=== PATIENT | female | born 1950 | race Caucasian/White ===

== ENCOUNTER 2022-10-18 14:57 | Inpatient (IN) | payer MEDICARE ==
--- NOTE | 2022-10-18 15:55 | ED ---
General Adult HPI - General Source: patient, family, RN notes reviewed Mode of arrival: wheelchair Limitations: physical limitation <Juve Li - Last Filed: 10/18/22 15:53> <Cristin Leach - Last Filed: 10/18/22 23:14> - General Stated complaint: diarreah, weight loss, Time Seen by Provider: 10/18/22 15:53 - History of Present Illness Initial comments: 72-year-old female presents emergency Department chief complaint diarrhea, weight loss, dehydration. Patient's been having diarrhea for over 2 weeks. Patient's last 13 pounds. Patient states symptoms started after she was [facility] after kyphoplasty upper back. Patient did contract covid 19. Patient's had 2 negative C. diff test. (Juve Li) Patient is 72-year-old female presents to the emergency department for diarrhea. She has had diarrhea for the past 2 weeks. Symptoms started after she was in rehab for kyphoplasty of upper back. At this time patient did contract COVID- 19. Describes it as somewhat watery diarrhea 2-5 times per day, nonbloody. She denies any history of C. diff states she had 2 negative test. No recent a ntibiotic use. She has very minimal cramping before a bowel movement otherwise no abdominal pain. No fever, chills, nausea, vomiting. No chest pain or shortness of breath. Patient has lost 13 pounds over the past few weeks. (Cristin Leach) - Related Data Home Medications Medication Instructions Recorded Confirmed Budesonide [Entocort EC] 3 mg PO BID 08/26/21 10/18/22 Calcium Carbonate [Calcium] 300 mg PO DAILY 08/26/21 10/18/22 Cholecalciferol [Vitamin D3 (10 10 mcg PO HS 08/26/21 10/18/22 Mcg = 400 Iu)] Cyanocobalamin (Vitamin B-12) 1,000 mcg PO DAILY 08/26/21 10/18/22 [Vitamin B-12] DULoxetine HCL [Cymbalta] 60 mg PO HS 08/26/21 10/18/22 Fluticasone Propion/Salmeterol 1 puff INHALATION RT-BID 08/26/21 10/18/22 [Advair 250-50 Diskus] Memantine [Namenda] 10 mg PO BID 08/26/21 10/18/22 Metoprolol Tartrate [Lopressor] 50 mg PO BID 08/26/21 10/18/22 Pyridoxine HCl (Vitamin B6) 100 mg PO DAILY 08/26/21 10/18/22 [Vitamin B-6] Rosuvastatin [Crestor] 10 mg PO HS 08/26/21 10/18/22 Vitamin E (Dl,Tocopheryl Acet) 400 unit PO HS 08/26/21 10/18/22 [Vitamin E (400 Iu = 180 mg)] Aspirin EC [Ecotrin Low Dose] 81 mg PO HS 10/18/22 10/18/22 Carbidopa-Levodopa 25-100 mg 1 tab PO PC-TID 10/18/22 10/18/22 [Sinemet 25-100] Donepezil [Aricept] 5 mg PO DAILY 10/18/22 10/18/22 Fludrocortisone [Florinef] 0.1 mg PO DAILY 10/18/22 10/18/22 Losartan [Cozaar] 25 mg PO DAILY 10/18/22 10/18/22 Allergies Allergy/AdvReac Type Severity Reaction Status Date / Time Cephalosporins Allergy Anaphylaxis Verified 10/18/22 22:26 Sulfa (Sulfonamide Allergy Rash/Hives Verified 10/18/22 22:26 Antibiotics) Review of Systems ROS Other: All systems not noted in ROS Statement are negative. <Juve Li - Last Filed: 10/18/22 15:53> ROS Other: All systems not noted in ROS Statement are negative. <Cristin Leach - Last Filed: 10/18/22 23:14> ROS Statement: Those systems with pertinent positive or pertinent negative responses have been documented in the HPI. Past Medical History Past Medical History: Cancer, COPD, CVA/TIA, Hypertension, Memory Impairment, Myocardial Infarction (MS), Neurologic Disorder, Renal Disease, Syncope, Vascular Disorder Additional Past Medical History / Comment(s): Beginnings of memory problems, 2012 breast cancer/lumpectomy/chemo/radiation, lumbar compression fractures, TTT/neurocardiogenic syncopies, cardiac valve disease, nuclear stress test indicated MS at some time, PVCs, cat scan showed old areas infarct, small AAA/aortic plaque/thrombus, caratid artery disease, severe COPD, "kidney issues", benign colon polyp, colitis or IBS, possible celiac's disease, basal cell skin cancer removed, osteoporosis with reclast infusion, Last Myocardial Infarction Date:: unkn History of Any Multi-Drug Resistant Organisms: None Reported Past Surgical History: Back Surgery, Breast Surgery, Hysterectomy, Orthopedic Surgery Additional Past Surgical History / Comment(s): Breast biopsy/lumpectomy, lumbar kyphoplasty/kenolog injections, depo medrol injections in lower back, loop recorder, colonoscopy/polypectomy, skin cancer removed from scalp Past Anesthesia/Blood Transfusion Reactions: No Reported Reaction Smoking Status: Former smoker - Past Family History Father Family Medical History: CVA/TIA Mother Family Medical History: Cancer Additional Family Medical History / Comment(s): Breast cancer. <Juve Li - Last Filed: 10/18/22 15:53> General Exam <Juve Li - Last Filed: 10/18/22 15:53> General appearance: alert, in no apparent distress Head exam: Present: atraumatic, normocephalic, normal inspection Eye exam: Present: normal appearance, PERRL, EOMI. Absent: scleral icterus, conjunctival injection, periorbital swelling ENT exam: Present: normal oropharynx, mucous membranes dry Respiratory exam: Present: rhonchi (course). Absent: normal lung sounds bilaterally, respiratory distress, wheezes, rales, stridor Cardiovascular Exam: Present: regular rate, normal rhythm, normal heart sounds. Absent: systolic murmur, diastolic murmur, rubs, gallop, clicks GI/Abdominal exam: Present: soft, normal bowel sounds. Absent: distended, tenderness, guarding, rebound, rigid Neurological exam: Present: alert, oriented X3, CN II-XII intact Psychiatric exam: Present: normal affect, normal mood Skin exam: Present: warm, dry, intact, normal color. Absent: rash <Cristin Leach - Last Filed: 10/18/22 23:14> - General Exam Comments Initial Comments: Visual Physical Exam Vital signs reviewed General: Well-appearing, nontoxic, no acute distress. Head: Normocephalic, atraumatic Eyes: PERRLA, EOMI ENT: Airway patent Chest: Nonlabored breathing Skin: No visual rash, normal skin tone Neuro: Alert and oriented 3 Musculoskeletal: No gross abnormalities (Juve Li) Course Vital Signs 10/18/22 16:05 Temperature 97.7 F Pulse Rate 71 Respiratory 16 Rate Blood Pressure 109/73 O2 Sat by Pulse 95 Oximetry Medical Decision Making - Lab Data Result diagrams: 10/18/22 19:21 10/18/22 19:21 <Cristin Leach - Last Filed: 10/18/22 23:14> - Medical Decision Making Was pt. sent in by a medical professional or institution (, PA, SEO TEAM LEAD, urgent care, hospital, or residential...) When possible be specific @ -No Did you speak to anyone other than the patient for history (EMS, parent, family, police, friend...)? What history was obtained from this source @ -No Did you review nursing and triage notes (agree or disagree)? Why? @ -I reviewed and agree with nursing and triage notes Were old charts reviewed (outside hosp., previous admission, EMS record, old EKG, old radiological studies, urgent care reports/EKG's, residential records)? Report findings @ -No old charts were reviewed Differential Diagnosis (chest pain, altered mental status, abdominal pain women, abdominal pain men, vaginal bleeding, weakness, fever, dyspnea, syncope, headache, dizziness, GI bleed, back pain, seizure, CVA, palpatations, mental health)? @ -Differential Abdominal Pain Women: Appendicitis, Cholecystitis, diverticulosis, ischemic bowel, pancreatitis, hepatitis, UTI, gastroenteritis, AAA, incarcerated hernia, bowel obstruction, constipation, inflammatory bowel, hepatitis, peptic ulcer disease, splenic infarction, perforated viscus, vulvitis, ovarian torsion, PID, kidney stone, placenta abruption, this is not meant to be an all-inclusive list EKG interpreted by me (3pts min.). @ -As above X-rays interpreted by me (1pt min.). @ -None done CT interpreted by me (1pt min.). @ -Consider CT imaging of the abdomen however patient does not have abdominal pain or tenderness. She does not have fever, chills, nausea, vomiting. U/S interpreted by me (1pt. min.). @ -None done What testing was considered but not performed or refused? (CT, X-rays, U/S, labs)? Why? @ -None What meds were considered but not given or refused? Why? @ -None Did you discuss the management of the patient with other professionals (professionals i.e. Dr., PA, [employer] TE[employer] LEAD, lab, RT, psych nurse, child protective services social worker, feed miller, teacher, community services officer, rehabilitation caseworker)? Give summary @ -No Was smoking cessation discussed for >3mins.? @ -No Was critical care preformed (if so, how long)? @ -No Were there social determinants of health that impacted care today? How? (Homelessness, low income, unemployed, alcoholism, drug addiction, transportation, low edu. Level, literacy, decrease access to med. care, long-term, rehab)? @ -No Was there de-escalation of care discussed even if they declined (Discuss DNR or withdrawal of care, Hospice)? DNR status @ -No What co-morbidities impacted this encounter? (DM, HTN, Smoking, COPD, CAD, Cancer, CVA, ARF, Chemo, Hep., AIDS, mental health diagnosis, sleep apnea, morbid obesity)? @ -None Was patient admitted / discharged? Hospital course, mention meds given and route, prescriptions, significant lab abnormalities, going to OR and other pertinent info. @ -Patient presents for diarrhea 2 weeks. Patient appears dehydrated otherwise well-appearing. Hemodynamically stable. Laboratory studies obtained. Hemoglobin is increased at 16.2, I expect related to dehydration. There is no leukocytosis. There is mild hypokalemia at 3.4. There is hypercalcemia 11.0. Patient does take calcium supplementation. Patient given dose of azithromycin. I attempted to admit patient for diarrhea, dehydration, weight loss to Dr. Gerard who declined because we do not have GI services. Again patient does not have abdominal pain, fever, vomiting, hematochezia, melena. Spoke to Dr. Shirley who accepts patient. Undiagnosed new problem with uncertain prognosis? @ -No Drug Therapy requiring intensive monitoring for toxicity (Heparin, Nitro, Insulin, Cardizem)? @ -No Were any procedures done? @ -No Diagnosis/symptom? @ -Diarrhea, dehydration, weight loss Acute, or Chronic, or Acute on Chronic? @ -Acute Uncomplicated (without systemic symptoms) or Complicated (systemic symptoms)? @ -Uncomplicated Side effects of treatment? @ -No Exacerbation, Progression, or Severe Exacerbation? @ -No Poses a threat to life or bodily function? How? (Chest pain, USA, MS, pneumonia, PE, COPD, DKA, ARF, appy, cholecystitis, CVA, Diverticulitis, Homicidal, Suicidal, threat to staff... and all critical care pts) @ -No Dr. Garcia is my attending (Cristin Leach) - Lab Data Lab Results 10/18/22 10/18/22 10/18/22 Range/Units 19:21 19:21 19:21 WBC 6.1 (3.8-10.6) k/uL RBC 5.30 (3.80-5.40) m/uL Hgb 16.2 H (11.4-16.0) gm/dL Hct 49.5 H (34.0-46.0) % MCV 93.3 (80.0-100.0) fL MCH 30.6 (25.0-35.0) pg MCHC 32.8 (31.0-37.0) g/dL RDW 14.4 (11.5-15.5) % Plt Count 274 (150-450) k/uL MPV 7.6 Neutrophils % 68 % Lymphocytes % 21 % Monocytes % 7 % Eosinophils % 1 % Basophils % 1 % Neutrophils # 4.1 (1.3-7.7) k/uL Lymphocytes # 1.3 (1.0-4.8) k/uL Monocytes # 0.4 (0-1.0) k/uL Eosinophils # 0.1 (0-0.7) k/uL Basophils # 0.0 (0-0.2) k/uL Sodium 137 (137-145) mmol/L Potassium 3.4 L (3.5-5.1) mmol/L Chloride 98 (98-107) mmol/L Carbon Dioxide 31 H (22-30) mmol/L Anion Gap 8 mmol/L BUN 15 (7-17) mg/dL Creatinine 0.98 (0.52-1.04) mg/dL Est GFR (CKD-EPI)AfAm 66 (>60 ml/min/1.73 sqM) Est GFR (CKD-EPI)NonAf 57 (>60 ml/min/1.73 sqM) Glucose 100 H (74-99) mg/dL Plasma Lactic Acid Yohan 1.3 (0.7-2.0) mmol/L Calcium 11.0 H (8.4-10.2) mg/dL Magnesium 1.8 (1.6-2.3) mg/dL Total Bilirubin 0.6 (0.2-1.3) mg/dL AST 26 (14-36) U/L ALT 8 (4-34) U/L Alkaline Phosphatase 60 (38-126) U/L Total Protein 6.5 (6.3-8.2) g/dL Albumin 3.7 (3.5-5.0) g/dL Amylase 37 (30-110) U/L Lipase 118 (23-300) U/L Stool Occult Blood (Negative) 10/18/22 Range/Units 19:21 WBC (3.8-10.6) k/uL RBC (3.80-5.40) m/uL Hgb (11.4-16.0) gm/dL Hct (34.0-46.0) % MCV (80.0-100.0) fL MCH (25.0-35.0) pg MCHC (31.0-37.0) g/dL RDW (11.5-15.5) % Plt Count (150-450) k/uL MPV Neutrophils % % Lymphocytes % % Monocytes % % Eosinophils % % Basophils % % Neutrophils # (1.3-7.7) k/uL Lymphocytes # (1.0-4.8) k/uL Monocytes # (0-1.0) k/uL Eosinophils # (0-0.7) k/uL Basophils # (0-0.2) k/uL Sodium (137-145) mmol/L Potassium (3.5-5.1) mmol/L Chloride (98-107) mmol/L Carbon Dioxide (22-30) mmol/L Anion Gap mmol/L BUN (7-17) mg/dL Creatinine (0.52-1.04) mg/dL Est GFR (CKD-EPI)AfAm (>60 ml/min/1.73 sqM) Est GFR (CKD-EPI)NonAf (>60 ml/min/1.73 sqM) Glucose (74-99) mg/dL Plasma Lactic Acid Yohan (0.7-2.0) mmol/L Calcium (8.4-10.2) mg/dL Magnesium (1.6-2.3) mg/dL Total Bilirubin (0.2-1.3) mg/dL AST (14-36) U/L ALT (4-34) U/L Alkaline Phosphatase (38-126) U/L Total Protein (6.3-8.2) g/dL Albumin (3.5-5.0) g/dL Amylase (30-110) U/L Lipase (23-300) U/L Stool Occult Blood Negative (Negative) Disposition <Juve Li - Last Filed: 10/18/22 15:53> <Cristin Leach - Last Filed: 10/18/22 23:14> Clinical Impression: Diarrhea, Weight loss, Dehydration Disposition: ADMITTED IP TO THIS HOSP Condition: Good Referrals: Sanchez Edwards DO [Primary Care Provider] - 1-2 days
[2022-10-18 19:35] LABS: Basophils % (A) 1 %; Eosinophils # (A) 0.1 k/uL (0-0.7); Eosinophils % (A) 1 %; HCT 49.5 % (34.0-46.0); HGB 16.2 gm/dL (11.4-16.0); Lymphocytes # (A) 1.3 k/uL (1.0-4.8); Lymphocytes % (A) 21 %; MCH 30.6 pg (25.0-35.0); MCHC 32.8 g/dL (31.0-37.0); MCV 93.3 fL (80.0-100.0); Mean Platelet Volume 7.6; Monocytes # (A) 0.4 k/uL (0-1.0); Monocytes % (A) 7 %; Neutrophils # (A) 4.1 k/uL (1.3-7.7); Neutrophils % (A) 68 %; Platelet Count 274 k/uL (150-450); RDW 14.4 % (11.5-15.5); WBC 6.1 k/uL (3.8-10.6)
[2022-10-18 19:52] LABS: Albumin 3.7 g/dL (3.5-5.0); Magnesium 1.8 mg/dL (1.6-2.3); Potassium 3.4 mmol/L (3.5-5.1); Total Bilirubin 0.6 mg/dL (0.2-1.3); Total Protein 6.5 g/dL (6.3-8.2)
[2022-10-18] MEDS ORDERED: SODIUM CHLORIDE 0.9% 1,000 ML IV STA (20:00)
[2022-10-18] MEDS ORDERED: DIPHENOX-ATROP 2.5-0.025 MG 1 EACH TAB PO STA (20:00)
[2022-10-18] MEDS ORDERED: POTASSIUM CHLORIDE ER 20 MEQ TAB.ER PO STA (20:01)
--- NOTE | 2022-10-18 21:30 | XR ---
EXAMINATION TYPE: XR chest 2V DATE OF EXAM: 10/18/2022 COMPARISON: 08/28/2021 INDICATION: Cough weight loss TECHNIQUE: Frontal and lateral views of the chest are obtained. FINDINGS: The heart size is normal. The pulmonary vasculature is normal. The lungs are clear. Loop recorder overlies CT chest. Prior thoracolumbar region IMPRESSION: 1. No acute pulmonary process.
[2022-10-18] MEDS ORDERED: AZITHROMYCIN 250 MG TAB PO STA (22:04)
[2022-10-18] MEDS ORDERED: NALOXONE 0.4 MG/ML 1 ML VIAL IV PRN (22:33)
[2022-10-18] MEDS: SODIUM CHLORIDE 0.9% 1,000 ML IV SCH (23:03)
[2022-10-19] MEDS ORDERED: NON FORMULARY DRUG (Budesonide [Entocort Ec] 3 MG Capdr...Er) PO SCH (09:00)
[2022-10-19] MEDS: SYMBICORT 80-4.5 MCG INHALER INHALATION SCH ×2 (09:01→21:43)
[2022-10-19] MEDS: CYANOCOBALAMIN 500 MCG TAB PO SCH (11:00)
[2022-10-19] MEDS: METOPROLOL TARTRATE 50 MG TAB PO SCH ×2 (11:00→21:39)
[2022-10-19] MEDS: LOSARTAN 25 MG TAB PO SCH (11:00)
[2022-10-19] MEDS: MEMANTINE 10 MG TAB PO SCH ×2 (11:00→21:40)
[2022-10-19] MEDS: FLUDROCORTISONE 0.1 MG TAB PO SCH (11:01)
[2022-10-19] MEDS: PYRIDOXINE 50 MG TAB PO SCH (11:01)
[2022-10-19] MEDS: DONEPEZIL 5 MG TAB PO SCH (11:01)
[2022-10-19] MEDS: SODIUM CHLORIDE 0.9% 1,000 ML IV SCH ×2 (11:01→21:43)
[2022-10-19] MEDS: CARBIDOPA-LEVODOPA 25-100 MG 1 EACH TAB PO SCH ×3 (11:01→18:57)
[2022-10-19] MEDS: ACETAMINOPHEN TAB 325 MG TAB PO PRN ×2 (11:14→19:57)
[2022-10-19 11:17] LABS: Basophils % (A) 1 %; Eosinophils # (A) 0.1 k/uL (0-0.7); Eosinophils % (A) 2 %; HCT 44.5 % (34.0-46.0); HGB 14.7 gm/dL (11.4-16.0); Lymphocytes # (A) 0.8 k/uL (1.0-4.8); Lymphocytes % (A) 17 %; MCH 31.6 pg (25.0-35.0); MCHC 33.1 g/dL (31.0-37.0); MCV 95.5 fL (80.0-100.0); Mean Platelet Volume 7.9; Monocytes # (A) 0.4 k/uL (0-1.0); Monocytes % (A) 7 %; Neutrophils # (A) 3.3 k/uL (1.3-7.7); Neutrophils % (A) 69 %; Platelet Count 238 k/uL (150-450); RBC 4.66 m/uL (3.80-5.40); RDW 14.6 % (11.5-15.5); WBC 4.8 k/uL (3.8-10.6)
[2022-10-19 11:30] LABS: African American GFR (CKD) 79 (>60 ml/min/1.73 sqM); Anion Gap 8 mmol/L; Blood Urea Nitrogen 12 mg/dL (7-17); Calcium 9.6 mg/dL (8.4-10.2); Carbon Dioxide 25 mmol/L (22-30); Chloride 107 mmol/L (98-107); Glucose 109 mg/dL (74-99); Non-African American GFR(CKD) 69 (>60 ml/min/1.73 sqM); Potassium 3.1 mmol/L (3.5-5.1); Sodium 140 mmol/L (137-145)
[2022-10-19 12:46] LABS: Appearance,Urine Clear (Clear); Bacteria,Urine Rare /hpf; Bilirubin,Urine Negative (Negative); Blood,Urine Negative (Negative); Budding Yeast,Urine Occasional /hpf; Color,Urine Yellow; Glucose,Urine (UA) Negative (Negative); Ketones,Urine Trace (Negative); Leukocyte Esterase,Urine Trace (Negative); Mucus,Urine Occasional /hpf; Nitrite,Urine Negative (Negative); Protein,Urine Negative (Negative); RBC,Urine 1 /hpf (0-5); Specific Gravity,Urine 1.009 (1.001-1.035); Squamous Epithelial Cell,Urine <1 /hpf (0-4); Urobilinogen,Urine <2.0 mg/dL (<2.0); WBC,Urine 2 /hpf (0-5)
[2022-10-19] MEDS ORDERED: POTASSIUM CHLORIDE 20 MEQ in WATER FOR INJECTION 1 100ML.BAG IVPB STA (13:26)
[2022-10-19] MEDS ORDERED: POTASSIUM CHLORIDE ER 20 MEQ TAB.ER PO STA (13:27)
[2022-10-19] MEDS: FAMOTIDINE 20 MG/2 ML VIAL IV SCH (14:20)
[2022-10-19] MEDS: ONDANSETRON 4 MG/2 ML VIAL IVP PRN (14:20)
[2022-10-19] MEDS: DIPHENOX-ATROP 2.5-0.025 MG 1 EACH TAB PO PRN (14:21)
[2022-10-19] MEDS ORDERED: POTASSIUM CHLORIDE ER 20 MEQ TAB.ER PO ONE (18:00)
[2022-10-19] MEDS: VITAMIN E (DL,TOCOPHERYL ACET) 400 UNIT (180 MG) CAP PO SCH (21:39)
[2022-10-19] MEDS: ATORVASTATIN 20 MG TAB PO SCH (21:39)
[2022-10-19] MEDS: ASPIRIN 81 MG PO SCH (21:39)
[2022-10-19] MEDS: DULoxetine HCL 60 MG CAPSULE.DR PO SCH (21:39)
--- NOTE | 2022-10-20 00:17 | P.HPIM ---
History of Present Illness H&P Date: 10/19/22 Chief Complaint: Diarrhea Patient is a 72-year-old female with a known history of CVA/TIA, COPD, hypertension, memory impairment, history of breast cancer s/p lumpectomy and c hemo and radiation, severe COPD, basal cell cancer of the skin removed., IBS, possible celiac disease, anxiety/depression and prior history of smoking presents to ER with complaints of diarrhea for the past 2 weeks. Patient lost about 13 pounds and is dehydrated. Patient states that her symptoms started while she was at [facility] for rehab after kyphoplasty upper back about a month ago. Patient was tested positive for COVID-19 while she was at rehab. After coming back from rehab/started having d iarrhea for the past 2 weeks. Patient is having watery diarrhea 2-3 times per day. Nonbloody. Patient was tested positive for C. difficile infection twice negative. Denies any recent antibiotic use. Patient was having cramping abdominal pain while having bowel movement. Patient does have nausea no episodes of vomiting. No complaints of chest pain or shortness of breath. No fever no chills. Patient states that she did have colonoscopy in 2019. Was seen by gastroenterology. Patient has been taking budesonide tablets since then. Chest x-ray showed no acute pulmonary process. Laboratory data WBC 6.1 hemoglobin 16.1 platelets 274 Sodium 137 potassium 3.4 chloride 98 bicarb is 31 BUN 15 and creatinine 0.98 and blood sugar 100 lactic acid 1.3 and calcium 11.0 on admission liver enzymes are not elevated amylase 37 lipase 118 Urinalysis is negative for infection. Stool for occult blood is negative. Review of Systems Constitutional: Patient denies any fever or chills . Generalized weakness and fatigue. Abdomen: Patient does have nausea. No vomiting. Abdominal pain and diarrhea. Cardiovascular: Patient denies any chest pain or short of breath no palpitat ions. Respiratory: patient denied any cough . no sputum production. No shortness of breath Neurologic: Patient denied any numbness or tingling headache. Musculoskeletal: Patient denies any complaints of joint swelling or deformity. Skin: Negative Psychiatric: Negative Endocrine: No heat or cold intolerance. No recent weight gain. Genitourinary: No dysuria or hematuria. All other 14 point ROS negative except the above Past Medical History Past Medical History: Cancer, COPD, CVA/TIA, Hypertension, Memory Impairment, Myocardial Infarction (TX), Neurologic Disorder, Renal Disease, Syncope, Vascular Disorder Additional Past Medical History / Comment(s): Beginnings of memory problems, 2012 breast cancer/lumpectomy/chemo/radiation, lumbar compression fractures, TTT/neurocardiogenic syncopies, cardiac valve disease, nuclear stress test indicated TX at some time, PVCs, cat scan showed old areas infarct, small AAA/aortic plaque/thrombus, caratid artery disease, severe COPD, "kidney issues", benign colon polyp, colitis or IBS, possible celiac's disease, basal cell skin cancer removed, osteoporosis with reclast infusion, Last Myocardial Infarction Date:: unkn History of Any Multi-Drug Resistant Organisms: None Reported Past Surgical History: Back Surgery, Breast Surgery, Hysterectomy, Orthopedic Surgery Additional Past Surgical History / Comment(s): Breast biopsy/lumpectomy, lumbar kyphoplasty/kenolog injections, depo medrol injections in lower back, loop recorder, colonoscopy/polypectomy, skin cancer removed from scalp Past Anesthesia/Blood Transfusion Reactions: No Reported Reaction Past Psychological History: Anxiety, Depression Additional Psychological History / Comment(s): Pt resides with her spouse. She has a walker but does not use it much. She no longer drives, her spouse drives and manages her medications. Smoking Status: Former smoker Past Alcohol Use History: None Reported Additional Past Alcohol Use History / Comment(s): Pt started smoking in 1964 and quit in 2018. Past Drug Use History: None Reported - Past Family History Father Family Medical History: CVA/TIA Mother Family Medical History: Cancer Additional Family Medical History / Comment(s): Breast cancer. Medications and Allergies Home Medications Medication Instructions Recorded Confirmed Type Budesonide [Entocort EC] 3 mg PO BID 08/26/21 10/18/22 History Calcium Carbonate [Calcium] 300 mg PO DAILY 08/26/21 10/18/22 History Cholecalciferol [Vitamin D3 (10 10 mcg PO HS 08/26/21 10/18/22 History Mcg = 400 Iu)] Cyanocobalamin (Vitamin B-12) 1,000 mcg PO DAILY 08/26/21 10/18/22 History [Vitamin B-12] DULoxetine HCL [Cymbalta] 60 mg PO HS 08/26/21 10/18/22 History Fluticasone Propion/Salmeterol 1 puff INHALATION RT-BID 08/26/21 10/18/22 History [Advair 250-50 Diskus] Memantine [Namenda] 10 mg PO BID 08/26/21 10/18/22 History Metoprolol Tartrate [Lopressor] 50 mg PO BID 08/26/21 10/18/22 History Pyridoxine HCl (Vitamin B6) 100 mg PO DAILY 08/26/21 10/18/22 History [Vitamin B-6] Rosuvastatin [Crestor] 10 mg PO HS 08/26/21 10/18/22 History Vitamin E (Dl,Tocopheryl Acet) 400 unit PO HS 08/26/21 10/18/22 History [Vitamin E (400 Iu = 180 mg)] Aspirin EC [Ecotrin Low Dose] 81 mg PO HS 10/18/22 10/18/22 History Carbidopa-Levodopa 25-100 mg 1 tab PO PC-TID 10/18/22 10/18/22 History [Sinemet 25-100] Donepezil [Aricept] 5 mg PO DAILY 10/18/22 10/18/22 History Fludrocortisone [Florinef] 0.1 mg PO DAILY 10/18/22 10/18/22 History Losartan [Cozaar] 25 mg PO DAILY 10/18/22 10/18/22 History Allergies Allergy/AdvReac Type Severity Reaction Status Date / Time Cephalosporins Allergy Anaphylaxis Verified 10/18/22 22:26 Sulfa (Sulfonamide Allergy Rash/Hives Verified 10/18/22 22:26 Antibiotics) Physical Exam Vitals: Vital Signs Temp Pulse Pulse Resp BP BP Pulse Ox 10/19/22 07:02 98.8 F 76 17 142/82 91 L 10/19/22 02:00 154/72 10/19/22 00:49 98.4 F 77 17 177/92 94 L 10/18/22 16:05 97.7 F 71 16 109/73 95 Intake and Output 10/18/22 10/19/22 10/19/22 22:59 06:59 14:59 Other: # Voids 1 Weight 51.71 kg 51.71 kg PHYSICAL EXAMINATION: Patient is lying in the bed comfortably, no acute distress, awake alert and oriented.. HEENT: Normocephalic. Neck is supple. Pupils reactive. Nostrils clear. Mucosa dry. Neck reveals no JVD, carotid bruits, or thyromegaly. CHEST EXAMINATION: Trachea is central. Symmetrical expansion. Lung chapa clear to auscultation and percussion. CARDIAC: Normal S1, S2 with no gallops. No murmurs ABDOMEN: Soft. Bowel sounds present. Nontender. No organomegaly. No abdominal bruits. Extremities: reveal no edema. No clubbing or cyanosis Neurologically awake, alert, oriented x2-3 with well-coordinated movements. No gross focal deficits noted. Cognitive impairment. Skin: No rash or skin lesions. Psychiatric: Coperative. Nonsuicidal, Musculoskeletal: No joint swelling or deformity. Normal range of motion. Results CBC & Chem 7: 10/19/22 10:59 10/19/22 10:59 Labs: Abnormal Lab Results - Last 24 Hours (Table) 10/18/22 10/18/22 Range/Units 19:21 19:21 Hgb 16.2 H (11.4-16.0) gm/dL Hct 49.5 H (34.0-46.0) % Potassium 3.4 L (3.5-5.1) mmol/L Carbon Dioxide 31 H (22-30) mmol/L Glucose 100 H (74-99) mg/dL Calcium 11.0 H (8.4-10.2) mg/dL Microbiology - Last 24 Hours (Table) 10/18/22 19:21 Stool Culture - Preliminary Stool Thrombosis Risk Factor Assmnt - DVT/VTE Prophylaxis DVT/VTE Prophylaxis: Pharmacologic Prophylaxis ordered - Choose All That Apply Any of the Below Risk Factors Present?: No Each Risk Factor Represents 2 Points: Age 61-74 years Other congenital or acquired thrombophilia - If yes, enter type in comment: No Thrombosis Risk Factor Assessment Total Risk Factor Score: 2 Thrombosis Risk Factor Assessment Level: Low Risk Assessment and Plan Assessment: Acute diarrhea x2 weeks. C. difficile testing negative x2 as an outpatient. History of IBS and colitis. On budesonide tablets at home. Prior history of colonoscopy in 2019 Hypokalemia Dehydration volume depletion Recent COVID-19 infection about a month ago History of recent kyphoplasty of her back and was at rehab. History of CVA/TIA COPD History of skin cancer removal History of [place] no PCI history Anxiety/depression Prior history of smoking Plan: Currently on IV hydration and replace electrolytes. Stool culture was sent. Continue with DuoNebs and home medications. C. difficile was tested twice during the last week negative. Continue symptomatic management for nausea. Follow-up closely. Discussed with the patient and her at bedside in detail. Patient has follow-up appointment with Dr. Moy as an outpatient next month. Time with Patient: Greater than 30
[2022-10-20] MEDS: LOSARTAN 25 MG TAB PO SCH (08:47)
[2022-10-20] MEDS: CARBIDOPA-LEVODOPA 25-100 MG 1 EACH TAB PO SCH ×3 (08:47→18:08)
[2022-10-20] MEDS: DONEPEZIL 5 MG TAB PO SCH (08:47)
[2022-10-20] MEDS: PYRIDOXINE 50 MG TAB PO SCH (08:47)
[2022-10-20] MEDS: FAMOTIDINE 20 MG/2 ML VIAL IV SCH (08:48)
[2022-10-20] MEDS: CYANOCOBALAMIN 500 MCG TAB PO SCH (08:48)
[2022-10-20] MEDS: METOPROLOL TARTRATE 50 MG TAB PO SCH ×2 (08:48→20:51)
[2022-10-20] MEDS: MEMANTINE 10 MG TAB PO SCH ×2 (08:48→20:51)
[2022-10-20] MEDS: HEPARIN SODIUM,PORCINE/PF 5,000 UNIT/0.5 ML SYRINGE SQ SCH ×2 (08:48→20:50)
[2022-10-20] MEDS: FLUDROCORTISONE 0.1 MG TAB PO SCH (08:49)
[2022-10-20] MEDS: DIPHENOX-ATROP 2.5-0.025 MG 1 EACH TAB PO PRN ×2 (08:52→15:46)
[2022-10-20] MEDS: SODIUM CHLORIDE 0.9% 1,000 ML IV SCH (08:53)
[2022-10-20] MEDS: ACETAMINOPHEN TAB 325 MG TAB PO PRN (08:53)
[2022-10-20] MEDS: SYMBICORT 80-4.5 MCG INHALER INHALATION SCH ×2 (09:11→21:17)
[2022-10-20] MEDS: ONDANSETRON 4 MG/2 ML VIAL IVP PRN (15:24)
[2022-10-20] MEDS: IOPAMIDOL CONTRAST (ORAL USE) VIAL PO PRN ×2 (15:25→16:05)
[2022-10-20 15:32] LABS: African American GFR (CKD) >90 (>60 ml/min/1.73 sqM); Anion Gap 8 mmol/L; Blood Urea Nitrogen 8 mg/dL (7-17); Calcium 9.1 mg/dL (8.4-10.2); Carbon Dioxide 24 mmol/L (22-30); Chloride 106 mmol/L (98-107); Glucose 99 mg/dL (74-99); Non-African American GFR(CKD) 86 (>60 ml/min/1.73 sqM); Sodium 138 mmol/L (137-145)
[2022-10-20] MEDS: CHOLESTYRAMINE (WITH SUGAR) 4 GM PACKET PO SCH (17:14)
--- NOTE | 2022-10-20 17:52 | CT ---
EXAMINATION TYPE: CT abdomen pelvis wo con DATE OF EXAM: 10/20/2022 COMPARISON: None INDICATION: abdominal pain DLP: 419.3 mGycm, Automated exposure control for dose reduction was used. CONTRAST: 0 mL of Isovue 300. Study performed with Oral Contrast TECHNIQUE: Axial images were obtained from above the diaphragm to the pubic rami in the axial plane a t 5 mm thick sections. Reconstructed images are reviewed on the computer in the coronal plane. FINDINGS: Limited CT sections are obtained the lung bases. There is consolidation within the posterior right l sandy base. Correlate for pneumonia. Follow-up can be performed.. CT ABDOMEN: Liver: Normal Spleen: Normal Pancreas: Normal Adrenal glands: The adrenal glands are normal. Gallbladder: Normal Kidneys: No masses are evident. No hydronephrosis is present. There is a 5.3 cm cyst on the right k idney. Additional 1.3 cm cyst in the right kidney. No renal stones are identified. Aorta: Vascular calcification is within the aorta. AP dimension is 2.8 cm in the mid portion of the abdominal aorta. Inferior vena cava: Normal. CT PELVIS: Loops of bowel within the abdomen and pelvis are normal. There are loops of bowel without contras t or incompletely distended limiting their evaluation. Appendix: Normal as visualized. Urinary bladder: Normal. Genitourinary structures: Uterus and ovaries are not identified. Osseous structures: No suspicious lytic or sclerotic lesions. Old compression deformities are within the lumbar spine. Left hip prosthesis is present causing beam hardening artifact some limitation on t he lower pelvic evaluation. Additional postsurgical changes are through the lower lumbar spine. IMPRESSIONS: 1. Right lower lobe consolidation. Correlate for pneumonia. Follow-up is recommended.
[2022-10-20] MEDS: ASPIRIN 81 MG PO SCH (20:51)
[2022-10-20] MEDS: ATORVASTATIN 20 MG TAB PO SCH (20:51)
[2022-10-20] MEDS: DULoxetine HCL 60 MG CAPSULE.DR PO SCH (20:51)
[2022-10-20] MEDS: VITAMIN E (DL,TOCOPHERYL ACET) 400 UNIT (180 MG) CAP PO SCH (20:51)
[2022-10-21] MEDS: SYMBICORT 80-4.5 MCG INHALER INHALATION SCH ×2 (08:15→20:25)
[2022-10-21] MEDS: CARBIDOPA-LEVODOPA 25-100 MG 1 EACH TAB PO SCH ×3 (08:47→17:51)
[2022-10-21] MEDS: METOPROLOL TARTRATE 50 MG TAB PO SCH ×2 (08:47→20:34)
[2022-10-21] MEDS: FAMOTIDINE 20 MG/2 ML VIAL IV SCH (08:47)
[2022-10-21] MEDS: LOSARTAN 25 MG TAB PO SCH (08:47)
[2022-10-21] MEDS: MEMANTINE 10 MG TAB PO SCH ×2 (08:47→20:34)
[2022-10-21] MEDS: HEPARIN SODIUM,PORCINE/PF 5,000 UNIT/0.5 ML SYRINGE SQ SCH ×2 (08:47→20:34)
[2022-10-21] MEDS: CYANOCOBALAMIN 500 MCG TAB PO SCH (08:47)
[2022-10-21] MEDS: FLUDROCORTISONE 0.1 MG TAB PO SCH (08:48)
[2022-10-21] MEDS: DONEPEZIL 5 MG TAB PO SCH (08:48)
[2022-10-21] MEDS: PYRIDOXINE 50 MG TAB PO SCH (08:48)
[2022-10-21] MEDS: CHOLESTYRAMINE (WITH SUGAR) 4 GM PACKET PO SCH ×2 (08:49→17:51)
[2022-10-21] MEDS: ACETAMINOPHEN TAB 325 MG TAB PO PRN ×2 (08:54→19:47)
[2022-10-21] MEDS: SODIUM CHLORIDE 0.9% 1,000 ML IV SCH ×2 (08:59→17:51)
[2022-10-21 10:23] LABS: Basophils # (A) 0.08 X 10*3/uL (0.00-0.10); Basophils % (A) 1.1 %; Eosinophils # (A) 0.09 X 10*3/uL (0.04-0.35); Eosinophils % (A) 1.3 %; HCT 44.3 % (37.2-46.3); HGB 14.5 g/dL (12.0-15.0); Immature Grans, Automated 1.3 %; Lymphocytes # (A) 1.36 X 10*3/uL (0.90-5.00); Lymphocytes % (A) 19.1 %; MCH 30.9 pg (27.0-32.0); MCHC 32.7 g/dL (32.0-37.0); MCV 94.3 fL (80.0-97.0); Mean Platelet Volume 10.4 fL (9.5-12.2); Monocytes # (A) 1.01 X 10*3/uL (0.20-1.00); Monocytes % (A) 14.2 %; NRBC Per 100 WBC 0 /100 WBCS (0.0-0.0); Neutrophils # (A) 4.49 X 10*3/uL (1.80-7.70); Platelet Count 205 X 10*3/uL (140-440); WBC 7.12 X 10*3/uL (4.50-10.00)
[2022-10-21 10:24] LABS: African American GFR (CKD) 84.2 (60.0-200.0); Anion Gap 10.4 mmol/L (10.00-18.00); Blood Urea Nitrogen 6.4 mg/dL (9.0-27.0); Calcium 8.6 mg/dL (8.7-10.3); Carbon Dioxide 22.6 mmol/L (20.0-27.5); Non-African American GFR(CKD) 72.6 (60.0-200.0); Potassium 3.8 mmol/L (3.5-5.5)
[2022-10-21] MEDS: ASPIRIN 81 MG PO SCH (20:34)
[2022-10-21] MEDS: ATORVASTATIN 20 MG TAB PO SCH (20:34)
[2022-10-21] MEDS: DULoxetine HCL 60 MG CAPSULE.DR PO SCH (20:34)
[2022-10-21] MEDS: VITAMIN E (DL,TOCOPHERYL ACET) 400 UNIT (180 MG) CAP PO SCH (20:34)
[2022-10-21] MEDS ORDERED: LOPERAMIDE 2 MG CAP PO PRN (22:10)
[2022-10-21] MEDS: metroNIDAZOLE-NS PMX 500 MG in SALINE 1 100ML.BAG IVPB SCH (23:24)
[2022-10-22] MEDS: SODIUM CHLORIDE 0.9% 1,000 ML IV SCH ×2 (06:53→20:29)
[2022-10-22] MEDS: SYMBICORT 80-4.5 MCG INHALER INHALATION SCH ×2 (08:22→20:24)
[2022-10-22] MEDS: CYANOCOBALAMIN 500 MCG TAB PO SCH (08:23)
[2022-10-22] MEDS: MEMANTINE 10 MG TAB PO SCH ×2 (08:23→20:44)
[2022-10-22] MEDS: LOSARTAN 25 MG TAB PO SCH (08:23)
[2022-10-22] MEDS: CARBIDOPA-LEVODOPA 25-100 MG 1 EACH TAB PO SCH ×3 (08:23→19:06)
[2022-10-22] MEDS: FAMOTIDINE 20 MG/2 ML VIAL IV SCH (08:24)
[2022-10-22] MEDS: HEPARIN SODIUM,PORCINE/PF 5,000 UNIT/0.5 ML SYRINGE SQ SCH ×2 (08:24→20:44)
[2022-10-22] MEDS: DONEPEZIL 5 MG TAB PO SCH (08:24)
[2022-10-22] MEDS: CHOLESTYRAMINE (WITH SUGAR) 4 GM PACKET PO SCH ×2 (08:25→19:07)
[2022-10-22] MEDS: PYRIDOXINE 50 MG TAB PO SCH (08:25)
[2022-10-22] MEDS: METOPROLOL TARTRATE 50 MG TAB PO SCH ×2 (08:25→20:44)
[2022-10-22] MEDS: metroNIDAZOLE-NS PMX 500 MG in SALINE 1 100ML.BAG IVPB SCH ×2 (08:26→15:59)
[2022-10-22] MEDS: FLUDROCORTISONE 0.1 MG TAB PO SCH (08:27)
[2022-10-22] MEDS: ACETAMINOPHEN TAB 325 MG TAB PO PRN ×2 (08:36→19:06)
[2022-10-22 09:43] LABS: African American GFR (CKD) 98.9 (60.0-200.0); Albumin 2.8 g/dL (3.8-4.9); Albumin/Globulin Ratio 1.47 (1.60-3.17); Anion Gap 9.5 mmol/L (10.00-18.00); BUN/Creat Ratio 8.71 Ratio (12.00-20.00); Blood Urea Nitrogen 6.1 mg/dL (9.0-27.0); Calcium 8.5 mg/dL (8.7-10.3); Carbon Dioxide 21.5 mmol/L (20.0-27.5); Globulin 1.9 g/dL (1.6-3.3); Non-African American GFR(CKD) 85.4 (60.0-200.0); Potassium 3.4 mmol/L (3.5-5.5); Total Bilirubin 0.3 mg/dL (0.30-1.20); Total Protein 4.7 g/dL (6.2-8.2)
[2022-10-22 11:21] LABS: Basophils # (A) 0.05 X 10*3/uL (0.00-0.10); Basophils % (A) 1.1 %; Eosinophils # (A) 0.09 X 10*3/uL (0.04-0.35); Eosinophils % (A) 1.9 %; HCT 41.8 % (37.2-46.3); HGB 13.6 g/dL (12.0-15.0); Immature Grans, Automated 1.7 %; Lymphocytes # (A) 1.01 X 10*3/uL (0.90-5.00); Lymphocytes % (A) 21.4 %; MCH 30.6 pg (27.0-32.0); MCHC 32.5 g/dL (32.0-37.0); MCV 93.9 fL (80.0-97.0); Mean Platelet Volume 10.8 fL (9.5-12.2); Monocytes # (A) 0.51 X 10*3/uL (0.20-1.00); Monocytes % (A) 10.8 %; NRBC Per 100 WBC 0 /100 WBCS (0.0-0.0); Neutrophils # (A) 2.97 X 10*3/uL (1.80-7.70); Neutrophils % (A) 63.1 %; Platelet Count 214 X 10*3/uL (140-440); RBC 4.45 X 10*6/uL (4.10-5.20); RDW 14.9 % (11.5-14.5); WBC 4.71 X 10*3/uL (4.50-10.00)
[2022-10-22] MEDS: ASPIRIN 81 MG PO SCH (20:44)
[2022-10-22] MEDS: VITAMIN E (DL,TOCOPHERYL ACET) 400 UNIT (180 MG) CAP PO SCH (20:44)
[2022-10-22] MEDS: DULoxetine HCL 60 MG CAPSULE.DR PO SCH (20:44)
[2022-10-22] MEDS: ATORVASTATIN 20 MG TAB PO SCH (20:44)
--- NOTE | 2022-10-22 20:44 | P.CONS ---
History of Present Illness - Reason for Consult Consult date: 10/22/22 Acute diarrhea Requesting physician: Corey Collier - Chief Complaint Diarrhea times few weeks - History of Present Illness Patient is a 72-year-old female with a past medical history significant for hypertension COPD CVA TIA history of breast cancer status pos tlumpectomy IBS patient apparently mention she did have a COVID-19 infection on 09/21/2022 and the patient has been given a 5-day course of remdesivir patient mentioned he started having diarrhea on 10/03/2022 and did have multiple episodes of loose stool since that time patient denies having any blood or mucus in the stool has been complaining of some crampy lower abdominal pain intensity can be 5-6 out of 10 no radiation patient did have some nausea but no vomiting denies having any fever or chills no chest pain shortness of breath or cough patient on presentation to the hospital was afebrile no fever has been found subsequently patient did have a normal white count kidney function has been normal progress was managed with 0.27 urine has been negative stool for occult blood was negative stool culture reported negative patient has been [facility] was consulted for further management of her diarrhea apparently patient mention she did have a stool for C. difficile as an outpatient was has been negative however has not been tested during this h ospital stay, patient did have a CT of abdominal pelvis right lower lobe consolidation correlate for pneumonia loops of bowel are normal patient however denies having any respiratory symptoms or shortness of breath or cough or sputum production Review of Systems Positive point and negatives has been mentioned in the HPI, complete review of systems was performed and all other systems are negative Past Medical History Past Medical History: Cancer, COPD, CVA/TIA, Hypertension, Memory Impairment, Myocardial Infarction ([place]), Neurologic Disorder, Renal Disease, Syncope, Vascular Disorder Additional Past Medical History / Comment(s): Beginnings of memory problems, 2012 breast cancer/lumpectomy/chemo/radiation, lumbar compression fractures, TTT/neurocardiogenic syncopies, cardiac valve disease, nuclear stress test indicated AL at some time, PVCs, cat scan showed old areas infarct, small AAA/aortic plaque/thrombus, caratid artery disease, severe COPD, "kidney issues", benign colon polyp, colitis or IBS, possible celiac's disease, basal cell skin cancer removed, osteoporosis with reclast infusion, Last Myocardial Infarction Date:: unkn History of Any Multi-Drug Resistant Organisms: None Reported Past Surgical History: Back Surgery, Breast Surgery, Hysterectomy, Orthopedic Surgery Additional Past Surgical History / Comment(s): Breast biopsy/lumpectomy, lumbar kyphoplasty/kenolog injections, depo medrol injections in lower back, loop recorder, colonoscopy/polypectomy, skin cancer removed from scalp Past Anesthesia/Blood Transfusion Reactions: No Reported Reaction Past Psychological History: Anxiety, Depression Additional Psychological History / Comment(s): Pt resides with her spouse. She has a walker but does not use it much. She no longer drives, her spouse drives and manages her medications. Smoking Status: Former smoker Past Alcohol Use History: None Reported Additional Past Alcohol Use History / Comment(s): Pt started smoking in 1964 and quit in 2018. Past Drug Use History: None Reported - Past Family History Father Family Medical History: CVA/TIA Mother Family Medical History: Cancer Additional Family Medical History / Comment(s): Breast cancer. Medications and Allergies Home Medications Medication Instructions Recorded Confirmed Type Calcium Carbonate [Calcium] 300 mg PO DAILY 08/26/21 10/18/22 History Cholecalciferol [Vitamin D3 (10 10 mcg PO HS 08/26/21 10/18/22 History Mcg = 400 Iu)] Cyanocobalamin (Vitamin B-12) 1,000 mcg PO DAILY 08/26/21 10/18/22 History [Vitamin B-12] DULoxetine HCL [Cymbalta] 60 mg PO HS 08/26/21 10/18/22 History Fluticasone Propion/Salmeterol 1 puff INHALATION RT-BID 08/26/21 10/18/22 History [Advair 250-50 Diskus] Metoprolol Tartrate [Lopressor] 50 mg PO BID 08/26/21 10/18/22 History Pyridoxine HCl (Vitamin B6) 100 mg PO DAILY 08/26/21 10/18/22 History [Vitamin B-6] Rosuvastatin [Crestor] 10 mg PO HS 08/26/21 10/18/22 History Vitamin E (Dl,Tocopheryl Acet) 400 unit PO HS 08/26/21 10/18/22 History [Vitamin E (400 Iu = 180 mg)] Aspirin EC [Ecotrin Low Dose] 81 mg PO HS 10/18/22 10/18/22 History Carbidopa-Levodopa 25-100 mg 1 tab PO PC-TID 10/18/22 10/18/22 History [Sinemet 25-100 mg] Losartan [Cozaar] 25 mg PO DAILY 10/18/22 10/18/22 History Budesonide [Entocort EC] 6 mg PO BID #120 cap 10/27/22 Rx Famotidine [Pepcid] 20 mg PO BID #60 tablet 10/27/22 Rx HYDROcodone/APAP 5-325MG [[place] 1 each PO Q12HR PRN 3 Days #6 tab 10/27/22 Rx 5-325] Loperamide [Imodium] 2 mg PO QID PRN 5 Days #20 cap 10/27/22 Rx Allergies Allergy/AdvReac Type Severity Reaction Status Date / Time Cephalosporins Allergy Anaphylaxis Verified 10/18/22 22:26 Sulfa (Sulfonamide Allergy Rash/Hives Verified 10/18/22 22:26 Antibiotics) Physical Exam Vitals: Vital Signs Temp Pulse Resp BP Pulse Ox 10/22/22 08:26 73 18 10/22/22 07:10 97.6 F 73 18 161/81 92 L 10/22/22 02:00 97.5 F L 65 156/71 92 L 10/21/22 19:30 98.4 F 76 19 168/88 90 L 10/21/22 12:59 98.0 F 76 20 129/71 92 L Intake and Output 10/21/22 10/22/22 10/22/22 22:59 06:59 14:59 Intake Total 1018 1380 Balance 1018 1380 Intake: Intake, IV Titration 900 900 Amount Sodium Chloride 0.9% 1, 900 900 000 ml @ 75 mls/hr IV . [id number] [facility] Rx#:[id number] Oral 118 480 Other: Voiding Method Toilet # Voids 1 1 # Bowel Movements 1 Elderly female lying in bed in no distress Lungs clear to auscultation Abdominal soft no tenderness Exam completed with the help of LAP MACHINE OPERATOR Results CBC & Chem 7: 10/25/22 06:39 10/27/22 07:00 Labs: Abnormal Lab Results - Last 24 Hours (Table) 10/21/22 10/21/22 10/22/22 Range/Units 05:06 05:06 04:10 Potassium 3.4 L (3.5-5.5) mmol/L Anion Gap 9.50 L (10.00-18.00) mmol/L BUN 6.4 L 6.1 L (9.0-27.0) mg/dL BUN/Creatinine Ratio 8.00 L 8.71 L (12.00-20.00) Ratio Calcium 8.6 L 8.5 L (8.7-10.3) mg/dL ALT 7 L (8-44) U/L Total Protein 4.7 L (6.2-8.2) g/dL Albumin 2.8 L (3.8-4.9) g/dL Albumin/Globulin Ratio 1.47 L (1.60-3.17) g/dL Procalcitonin 0.27 H (0.02-0.09) ng/mL Microbiology - Last 24 Hours (Table) 10/18/22 19:21 Stool Culture - Final Stool Assessment and Plan (1) Diarrhea Status: Acute Code(s): R19.7 - DIARRHEA, UNSPECIFIED SNOMED Code(s): 99529251 Plan: This was a telehealth visit 1patient is in the hospital with diarrhea apparently has been going on for about 3 weeks in this patient with a recent diagnosis of COVID-19 and has received remdesivir no antibiotic therapy patient is afebrile white count is normal CT abdominal pelvis did not mention any evidence of colitis clinic suspicion is low for infectious etiology for her diarrhea though not entirely excluded, we will check inflammatory markers 2-we will obtain stools for C. difficile, if came back negative would recommend adding Imodium or Lomotil for symptomatic relief as the patient seems to have no relief with the Questran 3-did have abnormal CT with a right lobe consolidation however the patient do not have respiratory symptoms clinic suspicion is low for pneumonia Family at the bedside multiple questions concerns were answered We will follow on clinical condition and cultures to further adjust medication if needed Thank you for this consultation we will follow the patient along with you Time with Patient: Greater than 30
[2022-10-22 22:56] LABS: ALT <5 U/L (8-44); AST 16 U/L (13-35); Albumin 3.1 g/dL (3.8-4.9); Albumin/Globulin Ratio 1.44 (1.60-3.17); Alkaline Phosphatase 53 U/L (41-126); BUN/Creat Ratio 7.29 Ratio (12.00-20.00); Blood Urea Nitrogen 5.4 mg/dL (9.0-27.0); Calcium 8.6 mg/dL (8.7-10.3); Carbon Dioxide 22.8 mmol/L (20.0-27.5); Chloride 107 mmol/L (96-109); Globulin 2.1 g/dL (1.6-3.3); Glucose 100 mg/dL (70-110); Non-African American GFR(CKD) 80.2 (60.0-200.0); Sodium 141 mmol/L (135-145); Total Protein 5.2 g/dL (6.2-8.2)
[2022-10-23] MEDS: metroNIDAZOLE-NS PMX 500 MG in SALINE 1 100ML.BAG IVPB SCH ×2 (01:48→09:29)
[2022-10-23] MEDS ORDERED: Potassium Replacement Protocol 1 EACH MISC MISCELLANE PRN (03:18)
[2022-10-23] MEDS ORDERED: POTASSIUM CHLORIDE ER 20 MEQ TAB.ER PO STA (03:19)
--- NOTE | 2022-10-23 03:21 | P.PN ---
Subjective Progress Note Date: 10/20/22 Patient is a 72-year-old female with a known history of CVA/TIA, COPD, hypertension, memory impairment, history of breast cancer s/p lumpectomy and chemo and radiation, severe COPD, basal cell cancer of the skin removed., IBS, possible celiac disease, anxiety/depression and prior history of smoking prese nts to ER with complaints of diarrhea for the past 2 weeks. Patient lost about 13 pounds and is dehydrated. Patient states that her symptoms started while she was at [facility] for rehab after kyphoplasty upper back about a month ago. Patient was tested positive for COVID-19 while she was at rehab. After coming back from rehab/started having diarrhea for the past 2 weeks. Patient is having watery diarrhea 2-3 times per day. Nonbloody. Patient was tested positive for C. difficile infection twice negative. Denies any recent antibiotic use. Patient was having cramping abdominal pain while having bowel movement. Patient does have nausea no episodes of vomiting. No complaints of chest pain or shortness of breath. No fever no chills. Patient states that she did have colonoscopy in 2019. Was seen by gastroenterology. Patient has been taking budesonide tablets since then. Chest x-ray showed no acute pulmonary process. Laboratory data WBC 6.1 hemoglobin 16.1 platelets 274 Sodium 137 potassium 3.4 chloride 98 bicarb is 31 BUN 15 and creatinine 0.98 and blood sugar 100 lactic acid 1.3 and calcium 11.0 on admission liver enzymes are not elevated amylase 37 lipase 118 Urinalysis is negative for infection. Stool for occult blood is negative. 10/20/2022 Patient is currently lying in bed. Awake alert and oriented x3. Still having diarrhea and cramping abdominal pain with bowel meant. No complaints of chest pain or shortness of breath. Patient has been afebrile. No nausea vomiting abdominal pain or diarrhea. Patient is also complaining of nausea. Not tolerating diet very well. Currently being continued on normal saline at 75 cc/h. Laboratory data showed sodium 138, potassium 4.0, BUN 6.4 and creatinine 0.8 and calcium 8.6. Current medications reviewed. Objective - Vital Signs Vital signs: Vital Signs Temp 99.1 F 10/20/22 19:11 Pulse 96 10/20/22 19:11 Resp 19 10/20/22 19:11 BP 151/89 10/20/22 19:11 Pulse Ox 94 L 10/20/22 19:11 FiO2 Intake & Output 10/20/22 10/20/22 10/21/22 06:59 18:59 06:59 Other: Voiding Method Toilet # Voids 5 # Bowel Movements 2 4 - Exam PHYSICAL EXAMINATION: Patient is lying in the bed comfortably, no acute distress, awake alert and oriented.. HEENT: Normocephalic. Neck is supple. Pupils reactive. Nostrils clear. Oral cavity is moist. Neck reveals no JVD, carotid bruits, or thyromegaly. CHEST EXAMINATION: Trachea is central. Symmetrical expansion. Lung chapa clear to auscultation and percussion. CARDIAC: Normal S1, S2 with no gallops. No murmurs ABDOMEN: Soft. Bowel sounds present. Nontender. No organomegaly. No abdominal bruits. Extremities: reveal no edema. No clubbing or cyanosis Neurologically awake, alert, oriented x3 with well-coordinated movements. No focal deficits noted Skin: No rash or skin lesions. Psychiatric: Coperative. Nonsuicidal, Musculoskeletal: No joint swelling or deformity. Normal range of motion. - Labs CBC & Chem 7: 10/22/22 04:10 10/22/22 11:07 Labs: Microbiology - Last 24 Hours (Table) 10/18/22 19:21 Stool Culture - Preliminary Stool Assessment and Plan Assessment: Acute diarrhea x2 weeks. C. difficile testing negative x2 as an outpatient. Infectious versus inflammatory. History of IBS and colitis. On budesonide tablets at home. Prior history of colonoscopy in 2019 Hypokalemia Dehydration volume depletion Recent COVID-19 infection about a month ago History of recent kyphoplasty of her back and was at rehab. History of CVA/TIA COPD History of skin cancer removal History of [place] no PCI history Anxiety/depression Prior history of smoking Plan: Currently on IV hydration and replace electrolytes. Stool culture was sent. Continue with DuoNebs and home medications. C. difficile was tested twice during the last week negative. Continue symptomatic management for nausea. Follow-up closely. Discussed with the patient and her at bedside in detail. Patient has follow-up appointment with Dr. Moy as an outpatient next month. Time with Patient: Greater than 30
--- NOTE | 2022-10-23 03:24 | P.PN ---
Subjective Progress Note Date: 10/21/22 Patient is a 72-year-old female with a known history of CVA/TIA, COPD, hypertension, memory impairment, history of breast cancer s/p lumpectomy and chemo and radiation, severe COPD, basal cell cancer of the skin removed., IBS, possible celiac disease, anxiety/depression and prior history of smoking prese nts to ER with complaints of diarrhea for the past 2 weeks. Patient lost about 13 pounds and is dehydrated. Patient states that her symptoms started while she was at [facility] for rehab after kyphoplasty upper back about a month ago. Patient was tested positive for COVID-19 while she was at rehab. After coming back from rehab/started having diarrhea for the past 2 weeks. Patient is having watery diarrhea 2-3 times per day. Nonbloody. Patient was tested positive for C. difficile infection twice negative. Denies any recent antibiotic use. Patient was having cramping abdominal pain while having bowel movement. Patient does have nausea no episodes of vomiting. No complaints of chest pain or shortness of breath. No fever no chills. Patient states that she did have colonoscopy in 2019. Was seen by gastroenterology. Patient has been taking budesonide tablets since then. Chest x-ray showed no acute pulmonary process. Laboratory data WBC 6.1 hemoglobin 16.1 platelets 274 Sodium 137 potassium 3.4 chloride 98 bicarb is 31 BUN 15 and creatinine 0.98 and blood sugar 100 lactic acid 1.3 and calcium 11.0 on admission liver enzymes are not elevated amylase 37 lipase 118 Urinalysis is negative for infection. Stool for occult blood is negative. 10/20/2022 Patient is currently lying in bed. Awake alert and oriented x3. Still having diarrhea and cramping abdominal pain with bowel meant. No complaints of chest pain or shortness of breath. Patient has been afebrile. No nausea vomiting abdominal pain or diarrhea. Patient is also complaining of nausea. Not tolerating diet very well. Currently being continued on normal saline at 75 cc/h. Laboratory data showed sodium 138, potassium 4.0, BUN 6.4 and creatinine 0.8 and calcium 8.6. 10/21/2022 Patient is currently lying in the bed. Awake alert and oriented x3. No complaints of chest pain or shortness of breath. Patient still having diarrhea without any improvement. Being continued on Lomotil. Also on Questran. Laboratory data showed BUN 6.4 and creatinine 0.8. Procalcitonin level is elevated at 0.27. Stool for lactoferrin and WBCs were sent and follow-up culture report. Patient was started on antibiotics in the form of Flagyl. CT of the abdomen pelvis was ordered. No acute process was noted. ID consult for evaluation. Discussed with the family at bedside in detail. Current medications reviewed. Objective - Vital Signs Vital signs: Vital Signs Temp 98.4 F 10/21/22 19:30 Pulse 76 10/21/22 19:30 Resp 19 10/21/22 19:30 BP 168/88 10/21/22 19:30 Pulse Ox 90 L 10/21/22 19:30 FiO2 Intake & Output 10/21/22 10/21/22 10/22/22 06:59 18:59 06:59 Intake Total 1136 Balance 1136 Intake: Intake, IV Titration 900 Amount Sodium Chloride 0.9% 1, 900 000 ml @ 75 mls/hr IV . [id number] [facility] Rx#:[id number] Oral 236 Other: Voiding Method Toilet Toilet # Voids 1 # Bowel Movements 2 - Exam PHYSICAL EXAMINATION: Patient is lying in the bed comfortably, no acute distress, awake alert and oriented.. HEENT: Normocephalic. Neck is supple. Pupils reactive. Nostrils clear. Oral cavity is moist. Neck reveals no JVD, carotid bruits, or thyromegaly. CHEST EXAMINATION: Trachea is central. Symmetrical expansion. Lung chapa clear to auscultation and percussion. CARDIAC: Normal S1, S2 with no gallops. No murmurs ABDOMEN: Soft. Bowel sounds present. Nontender. No organomegaly. No abdominal bruits. Extremities: reveal no edema. No clubbing or cyanosis Neurologically awake, alert, oriented x3 with well-coordinated movements. No focal deficits noted Skin: No rash or skin lesions. Psychiatric: Coperative. Nonsuicidal, Musculoskeletal: No joint swelling or deformity. Normal range of motion. - Labs CBC & Chem 7: 10/22/22 04:10 10/22/22 11:07 Labs: Abnormal Lab Results - Last 24 Hours (Table) 10/21/22 10/21/22 10/21/22 Range/Units 05:06 05:06 05:06 RDW 15.0 H (11.5-14.5) % Immature Gran # 0.09 H (0.00-0.04) X 10*3/uL Monocytes # 1.01 H (0.20-1.00) X 10*3/uL BUN 6.4 L (9.0-27.0) mg/dL BUN/Creatinine Ratio 8.00 L (12.00-20.00) Ratio Calcium 8.6 L (8.7-10.3) mg/dL Procalcitonin 0.27 H (0.02-0.09) ng/mL Microbiology - Last 24 Hours (Table) 10/18/22 19:21 Stool Culture - Preliminary Stool Assessment and Plan Assessment: Acute diarrhea x2 weeks. C. difficile testing negative x2 as an outpatient. Infectious versus inflammatory. History of IBS and colitis. On budesonide tablets at home. Prior history of colonoscopy in 2019 Hypokalemia Dehydration volume depletion Recent COVID-19 infection about a month ago History of recent kyphoplasty of her back and was at rehab. History of CVA/TIA COPD History of skin cancer removal History of [place] no PCI history Anxiety/depression Prior history of smoking Plan: Currently on IV hydration and replace electrolytes. Stool culture was sent. Continue with DuoNebs and home medications. C. difficile was tested twice during the last week negative. Follow-up stool culture, lactoferrin and patient will be discharged on Flagyl. ID consult. Continue symptomatic management for nausea. Follow-up closely. Time with Patient: Greater than 30
--- NOTE | 2022-10-23 03:24 | P.PN ---
Subjective Progress Note Date: 10/22/22 Patient is a 72-year-old female with a known history of CVA/TIA, COPD, hypertension, memory impairment, history of breast cancer s/p lumpectomy and chemo and radiation, severe COPD, basal cell cancer of the skin removed., IBS, possible celiac disease, anxiety/depression and prior history of smoking prese nts to ER with complaints of diarrhea for the past 2 weeks. Patient lost about 13 pounds and is dehydrated. Patient states that her symptoms started while she was at [facility] for rehab after kyphoplasty upper back about a month ago. Patient was tested positive for COVID-19 while she was at rehab. After coming back from rehab/started having diarrhea for the past 2 weeks. Patient is having watery diarrhea 2-3 times per day. Nonbloody. Patient was tested positive for C. difficile infection twice negative. Denies any recent antibiotic use. Patient was having cramping abdominal pain while having bowel movement. Patient does have nausea no episodes of vomiting. No complaints of chest pain or shortness of breath. No fever no chills. Patient states that she did have colonoscopy in 2019. Was seen by gastroenterology. Patient has been taking budesonide tablets since then. Chest x-ray showed no acute pulmonary process. Laboratory data WBC 6.1 hemoglobin 16.1 platelets 274 Sodium 137 potassium 3.4 chloride 98 bicarb is 31 BUN 15 and creatinine 0.98 and blood sugar 100 lactic acid 1.3 and calcium 11.0 on admission liver enzymes are not elevated amylase 37 lipase 118 Urinalysis is negative for infection. Stool for occult blood is negative. 10/20/2022 Patient is currently lying in bed. Awake alert and oriented x3. Still having diarrhea and cramping abdominal pain with bowel meant. No complaints of chest pain or shortness of breath. Patient has been afebrile. No nausea vomiting abdominal pain or diarrhea. Patient is also complaining of nausea. Not tolerating diet very well. Currently being continued on normal saline at 75 cc/h. Laboratory data showed sodium 138, potassium 4.0, BUN 6.4 and creatinine 0.8 and calcium 8.6. 10/21/2022 Patient is currently lying in the bed. Awake alert and oriented x3. No complaints of chest pain or shortness of breath. Patient still having diarrhea without any improvement. Being continued on Lomotil. Also on Questran. Laboratory data showed BUN 6.4 and creatinine 0.8. Procalcitonin level is elevated at 0.27. Stool for lactoferrin and WBCs were sent and follow-up culture report. Patient was started on antibiotics in the form of Flagyl. CT of the abdomen pelvis was ordered. No acute process was noted. ID consult for evaluation. Discussed with the family at bedside in detail. 10/22/2022 Patient is currently resting in the bed. Awake alert and oriented x3. Patient did have 3 episodes of diarrhea this morning. No bowel movement since afternoon. No complaints of chest pain. No nausea vomiting abdominal pain. No cough or sputum production. Patient has been afebrile. ID is on board. Laboratory data showed potassium 3.4 chloride 107 BUN 6.1 and creatinine 0.7 and CRP 8.6. Current medications reviewed. Objective - Vital Signs Vital signs: Vital Signs Temp 98.7 F 10/22/22 20:00 Pulse 91 10/22/22 20:00 Resp 18 10/22/22 20:00 BP 155/89 10/22/22 20:00 Pulse Ox 94 L 10/22/22 20:00 FiO2 Intake & Output 10/22/22 10/22/22 10/23/22 06:59 18:59 06:59 Intake Total 1380 236 Balance 1380 236 Intake: Intake, IV Titration 900 Amount Sodium Chloride 0.9% 1, 900 000 ml @ 75 mls/hr IV . [id number] [facility] Rx#:[id number] Oral 480 236 Other: Voiding Method Toilet # Voids 1 2 # Bowel Movements 1 3 - Exam PHYSICAL EXAMINATION: Patient is lying in the bed comfortably, no acute distress, awake alert and oriented.. HEENT: Normocephalic. Neck is supple. Pupils reactive. Nostrils clear. Oral cavity is moist. Neck reveals no JVD, carotid bruits, or thyromegaly. CHEST EXAMINATION: Trachea is central. Symmetrical expansion. Lung chapa clear to auscultation and percussion. CARDIAC: Normal S1, S2 with no gallops. No murmurs ABDOMEN: Soft. Bowel sounds present. Nontender. No organomegaly. No abdominal bruits. Extremities: reveal no edema. No clubbing or cyanosis Neurologically awake, alert, oriented x3 with well-coordinated movements. No focal deficits noted Skin: No rash or skin lesions. Psychiatric: Coperative. Nonsuicidal, Musculoskeletal: No joint swelling or deformity. Normal range of motion. - Labs CBC & Chem 7: 10/22/22 04:10 10/22/22 11:07 Labs: Abnormal Lab Results - Last 24 Hours (Table) 10/22/22 10/22/22 10/22/22 Range/Units 04:10 04:10 11:07 RDW 14.9 H (11.5-14.5) % Immature Gran # 0.08 H (0.00-0.04) X 10*3/uL Potassium 3.4 L (3.5-5.5) mmol/L Anion Gap 9.50 L (10.00-18.00) mmol/L BUN 6.1 L (9.0-27.0) mg/dL BUN/Creatinine Ratio 8.71 L (12.00-20.00) Ratio Calcium 8.5 L (8.7-10.3) mg/dL ALT 7 L (8-44) U/L C-Reactive Protein 8.6 H (<1.0) mg/dL Total Protein 4.7 L (6.2-8.2) g/dL Albumin 2.8 L (3.8-4.9) g/dL Albumin/Globulin Ratio 1.47 L (1.60-3.17) g/dL Microbiology - Last 24 Hours (Table) 10/18/22 19:21 Stool Culture - Final Stool Assessment and Plan Assessment: Acute diarrhea x2 weeks. C. difficile testing negative x2 as an outpatient. Infectious versus inflammatory. History of IBS and colitis. On budesonide tablets at home. Prior history of colonoscopy in 2019 Hypokalemia Dehydration volume depletion Recent COVID-19 infection about a month ago History of recent kyphoplasty of her back and was at rehab. History of CVA/TIA COPD History of skin cancer removal History of [place] no PCI history Anxiety/depression Prior history of smoking Plan: Currently on IV hydration and replace electrolytes. Stool culture was sent. Continue with DuoNebs and home medications. C. difficile was tested twice during the last week negative. Follow-up stool culture, lactoferrin and patient will be discharged on Flagyl. ID is on board. . Continue symptomatic management for nausea. Follow-up closely. Time with Patient: Greater than 30
[2022-10-23] MEDS: SYMBICORT 80-4.5 MCG INHALER INHALATION SCH ×2 (08:04→22:20)
[2022-10-23] MEDS: PYRIDOXINE 50 MG TAB PO SCH (09:23)
[2022-10-23] MEDS: FAMOTIDINE 20 MG/2 ML VIAL IV SCH (09:23)
[2022-10-23] MEDS: LOSARTAN 25 MG TAB PO SCH (09:24)
[2022-10-23] MEDS: CARBIDOPA-LEVODOPA 25-100 MG 1 EACH TAB PO SCH ×3 (09:24→18:28)
[2022-10-23] MEDS: CYANOCOBALAMIN 500 MCG TAB PO SCH (09:24)
[2022-10-23] MEDS: MEMANTINE 10 MG TAB PO SCH ×2 (09:24→20:35)
[2022-10-23] MEDS: FLUDROCORTISONE 0.1 MG TAB PO SCH (09:24)
[2022-10-23] MEDS: ACETAMINOPHEN TAB 325 MG TAB PO PRN (09:24)
[2022-10-23] MEDS: METOPROLOL TARTRATE 50 MG TAB PO SCH ×2 (09:24→20:35)
[2022-10-23] MEDS: DONEPEZIL 5 MG TAB PO SCH (09:24)
[2022-10-23] MEDS: HEPARIN SODIUM,PORCINE/PF 5,000 UNIT/0.5 ML SYRINGE SQ SCH ×2 (09:24→20:35)
[2022-10-23] MEDS: CHOLESTYRAMINE (WITH SUGAR) 4 GM PACKET PO SCH ×2 (10:19→18:36)
[2022-10-23] MEDS: SODIUM CHLORIDE 0.9% 1,000 ML IV SCH (12:19)
[2022-10-23 13:05] LABS: African American GFR (CKD) 91.2 (60.0-200.0); Anion Gap 13.7 mmol/L (10.00-18.00); BUN/Creat Ratio 5.31 Ratio (12.00-20.00); Calcium 8.4 mg/dL (8.7-10.3); Carbon Dioxide 18.1 mmol/L (20.0-27.5); Non-African American GFR(CKD) 78.7 (60.0-200.0); Potassium 3.2 mmol/L (3.5-5.5)
--- NOTE | 2022-10-23 13:44 | P.PN ---
Subjective Progress Note Date: 10/23/22 Principal diagnosis: Diarrhea Patient is a 72-year-old female with a past medical history significant for hypertension COPD CVA TIA history of breast cancer status postlu mpectomy IBS patient did have a COVID-19 infection on 09/21/2022 and the patient has been given a 5-day course of remdesivir patient mentioned he started having diarrhea on 10/03/2022, patient did have CT of abdominal pelvis that was negative for any colitis stool culture negative in stool for C. diff came back negative as the patient fever or white count On today's evaluation that is 10/23/2022, the patient remains to be afebrile, still complaining of diarrhea and did have 2 loose stool since morning no blood or mucus in the stool some vague abdominal pain no nausea no vomiting no chest pain shortness of breath or cough Objective - Vital Signs Vital signs: Vital Signs Temp 98.9 F 10/23/22 07:25 Pulse 72 10/23/22 07:25 Resp 17 10/23/22 07:25 BP 171/87 10/23/22 07:25 Pulse Ox 92 L 10/23/22 07:25 FiO2 Intake & Output 10/22/22 10/23/22 10/23/22 18:59 06:59 18:59 Intake Total 236 1405 Balance 236 1405 Intake: Intake, IV Titration 925 Amount Sodium Chloride 0.9% 1, 825 000 ml @ 75 mls/hr IV . [id number] [facility] Rx#:[id number] metroNIDAZOLE-NS PMX 500 100 mg In Saline 1 100ml.bag @ 100 mls/hr IVPB Q8HR [facility] Rx#:[id number] Oral 236 480 Other: Voiding Method Toilet # Voids 2 2 # Bowel Movements 3 1 - Exam GENERAL DESCRIPTION: An elderly female lying in bed in no distress RESPIRATORY SYSTEM: Unlabored breathing , decreased breath sounds at bases HEART: S1 S2 regular rate and rhythm , ABDOMEN: Soft , no tenderness EXTREMITIES: No edema feet - Labs CBC & Chem 7: 10/22/22 04:10 10/23/22 06:25 Labs: Abnormal Lab Results - Last 24 Hours (Table) 10/22/22 10/22/22 10/22/22 Range/Units 11:07 11:07 11:07 Potassium 3.0 L (3.5-5.5) mmol/L BUN 5.4 L (9.0-27.0) mg/dL BUN/Creatinine Ratio 7.29 L (12.00-20.00) Ratio Calcium 8.6 L (8.7-10.3) mg/dL ALT <5 L (8-44) U/L C-Reactive Protein 8.6 H (<1.0) mg/dL Total Protein 5.2 L (6.2-8.2) g/dL Albumin 3.1 L (3.8-4.9) g/dL Albumin/Globulin Ratio 1.44 L (1.60-3.17) g/dL Procalcitonin 0.12 H (0.02-0.09) ng/mL Assessment and Plan (1) Diarrhea Current Visit: Yes Status: Acute Code(s): R19.7 - DIARRHEA, UNSPECIFIED SNOMED Code(s): 75069508 Plan: 1patient is in the hospital with diarrhea apparently has been going on for about 3 weeks in this patient with a recent diagnosis of COVID-19 and has received remdesivir no antibiotic therapy patient is afebrile white count is normal CT abdominal pelvis did not mention any evidence of colitis clinic suspicion is low for infectious etiology for her diarrhea though not entirely excluded, we will check inflammatory markers 2- patient did have abnormal CT with a right lobe consolidation however the patient do not have respiratory symptoms clinic suspicion is low for pneumonia 3-stools for C. difficile came back negative, patient has been started on Imodium for symptomatic relief and will see clinical response, discontinue Flagyl Time with Patient: Less than 30
[2022-10-23] MEDS: DULoxetine HCL 60 MG CAPSULE.DR PO SCH (20:35)
[2022-10-23] MEDS: ATORVASTATIN 20 MG TAB PO SCH (20:35)
[2022-10-23] MEDS: VITAMIN E (DL,TOCOPHERYL ACET) 400 UNIT (180 MG) CAP PO SCH (20:35)
[2022-10-23] MEDS: ASPIRIN 81 MG PO SCH (20:35)
--- NOTE | 2022-10-23 21:26 | P.PN ---
Subjective Patient is a 72-year-old female with a known history of CVA/TIA, COPD, hypertension, memory impairment, history of breast cancer s/p lumpectomy and chemo and radiation, severe COPD, basal cell cancer of the skin removed., IBS, possible celiac disease, anxiety/depression and prior history of smoking presents to ER with complaints of diarrhea for the past 2 weeks. Patient lost about 13 pounds and is dehydrated. Patient states that her symptoms started while she was at [facility] for rehab after kyphoplasty upper back about a month ago. Patient was tested positive for COVID-19 while she was at rehab. After coming back from rehab/started having diarrhea for the past 2 weeks. Patient is having watery diarrhea 2-3 times per day. Nonbloody. Patient was tested positive for C. difficile infection twice negative. Denies any recent antibiotic use. Patient was having cramping abdominal pain while having bowel movement. Patient does have nausea no episodes of vomiting. No complaints of chest pain or shortness of breath. No fever no chills. Patient states that she did have colonoscopy in 2019. Was seen by gastroenterology. Patient has been taking budesonide tablets since then. Chest x-ray showed no acute pulmonary process. Laboratory data WBC 6.1 hemoglobin 16.1 platelets 274 Sodium 137 potassium 3.4 chloride 98 bicarb is 31 BUN 15 and creatinine 0.98 and blood sugar 100 lactic acid 1.3 and calcium 11.0 on admission liver enzymes are not elevated amylase 37 lipase 118 Urinalysis is negative for infection. Stool for occult blood is negative. 10/20/2022 Patient is currently lying in bed. Awake alert and oriented x3. Still having diarrhea and cramping abdominal pain with bowel meant. No complaints of chest pain or shortness of breath. Patient has been afebrile. No nausea vomiting abdominal pain or diarrhea. Patient is also complaining of nausea. Not tolerating diet very well. Currently being continued on normal saline at 75 cc/h. Laboratory data showed sodium 138, potassium 4.0, BUN 6.4 and creatinine 0.8 and calcium 8.6. 10/21/2022 Patient is currently lying in the bed. Awake alert and oriented x3. No complaints of chest pain or shortness of breath. Patient still having diarrhea without any improvement. Being continued on Lomotil. Also on Questran. Laboratory data showed BUN 6.4 and creatinine 0.8. Procalcitonin level is elevated at 0.27. Stool for lactoferrin and WBCs were sent and follow-up culture report. Patient was started on antibiotics in the form of Flagyl. CT of the abdomen pelvis was ordered. No acute process was noted. ID consult for evaluation. Discussed with the family at bedside in detail. 10/22/2022 Patient is currently resting in the bed. Awake alert and oriented x3. Patient did have 3 episodes of diarrhea this morning. No bowel movement since afternoon. No complaints of chest pain. No nausea vomiting abdominal pain. No cough or sputum production. Patient has been afebrile. ID is on board. Laboratory data showed potassium 3.4 chloride 107 BUN 6.1 and creatinine 0.7 and CRP 8.6. I'm resuming the care of the patient on: 10/23/2022 This is a pleasant 72 years old female who was admitted with signs and symptoms of diarrhea for the last 2-3 weeks. Infectious process was suspected however stool culture came back negative, C. diff negative and the Flagyl was dis continued. Infectious disease input is appreciated Patient today shows comfortable and relaxed, she denies abdominal pain or vomiting. She tolerates that well. She states that she had 1 formed and one was bowel movement last night and 1 somewhat formed bowel movement this morning, patient and daughter at bedside think patient is improving. Her pro calcitonin is mildly elevated and is trending down to 0.12. No fever, no leukocytosis Patient currently treated symptomatically with Questran and Imodium when necessary Also patient has evidence of high blood pressure and hypokalemia, she is on fl udrocortisone 0.1 mg daily, patient does not know why she is on this medication which could be held for now Objective - Vital Signs Vital signs: Vital Signs Temp 98.9 F 10/23/22 07:25 Pulse 72 10/23/22 07:25 Resp 17 10/23/22 07:25 BP 171/87 10/23/22 07:25 Pulse Ox 92 L 10/23/22 07:25 FiO2 Intake & Output 10/22/22 10/23/22 10/23/22 18:59 06:59 18:59 Intake Total 236 1405 Balance 236 1405 Intake: Intake, IV Titration 925 Amount Sodium Chloride 0.9% 1, 825 000 ml @ 75 mls/hr IV . [id number] [facility] Rx#:[id number] metroNIDAZOLE-NS PMX 500 100 mg In Saline 1 100ml.bag @ 100 mls/hr IVPB Q8HR [facility] Rx#:[id number] Oral 236 480 Other: Voiding Method Toilet # Voids 2 2 # Bowel Movements 3 1 - Exam GENERAL: The patient is alert and oriented x3, not in any acute distress. Well developed, well nourished. HEENT: Pupils are round and equally reacting to light. EOMI. No scleral icterus. No conjunctival pallor. Normocephalic, atraumatic. No pharyngeal erythema. No thyromegaly. CARDIOVASCULAR: S1 and S2 present. No murmurs, rubs, or gallops. PULMONARY: Chest is clear to auscultation, no wheezing . no crackles. ABDOMEN: Soft, nontender, nondistended, normoactive bowel sounds. No palpable organomegaly. MUSCULOSKELETAL: No joint swelling or deformity. EXTREMITIES: No cyanosis, clubbing, or pedal edema. NEUROLOGICAL: Gross neurological examination did not reveal any focal deficits. SKIN: No rashes. no petechiae. - Labs CBC & Chem 7: 10/22/22 04:10 10/23/22 06:25 Labs: Abnormal Lab Results - Last 24 Hours (Table) 10/22/22 10/22/22 10/22/22 Range/Units 04:10 04:10 11:07 RDW 14.9 H (11.5-14.5) % Immature Gran # 0.08 H (0.00-0.04) X 10*3/uL Potassium 3.4 L 3.0 L (3.5-5.5) mmol/L Anion Gap 9.50 L (10.00-18.00) mmol/L BUN 6.1 L 5.4 L (9.0-27.0) mg/dL BUN/Creatinine Ratio 8.71 L 7.29 L (12.00-20.00) Ratio Calcium 8.5 L 8.6 L (8.7-10.3) mg/dL ALT 7 L <5 L (8-44) U/L C-Reactive Protein (<1.0) mg/dL Total Protein 4.7 L 5.2 L (6.2-8.2) g/dL Albumin 2.8 L 3.1 L (3.8-4.9) g/dL Albumin/Globulin Ratio 1.47 L 1.44 L (1.60-3.17) g/dL Procalcitonin (0.02-0.09) ng/mL 10/22/22 10/22/22 Range/Units 11:07 11:07 RDW (11.5-14.5) % Immature Gran # (0.00-0.04) X 10*3/uL Potassium (3.5-5.5) mmol/L Anion Gap (10.00-18.00) mmol/L BUN (9.0-27.0) mg/dL BUN/Creatinine Ratio (12.00-20.00) Ratio Calcium (8.7-10.3) mg/dL ALT (8-44) U/L C-Reactive Protein 8.6 H (<1.0) mg/dL Total Protein (6.2-8.2) g/dL Albumin (3.8-4.9) g/dL Albumin/Globulin Ratio (1.60-3.17) g/dL Procalcitonin 0.12 H (0.02-0.09) ng/mL Assessment and Plan Assessment: Acute diarrhea x2 weeks. C. difficile testing negative,.B viral versus other, improving History of IBS and colitis. On budesonide tablets at home. Prior history of colonoscopy in 2019 Hypokalemia Dehydration volume depletion Recent COVID-19 infection about a month ago History of recent kyphoplasty of her back and was at rehab. History of CVA/TIA COPD History of skin cancer removal History of CA no PCI history Anxiety/depression Prior history of smoking Plan: Discontinue antibiotic per ID team Discontinue IV fluids Monitor the patient while off antibiotics Labs and medication and images were reviewed Continue symptomatic treatment with Questran and Imodium when necessary Labs and medication were reviewed.. Continue same treatment. Continue with symptomatic treatment. Resume home medication. Monitor labs and vitals. DVT and GI prophylaxis. Further recommendations as per clinical course of the patient DVT prophylaxis: Subcutaneous heparin GI Prophylaxis: Pepcid PT/OT: Pending Prognosis is guarded
[2022-10-23] MEDS: POTASSIUM CHLORIDE ER 20 MEQ TAB.ER PO SCH ×2 (22:40→23:22)
[2022-10-24] MEDS: SODIUM CHLORIDE 0.9% 1,000 ML IV SCH ×3 (03:42→17:29)
[2022-10-24] MEDS: SYMBICORT 80-4.5 MCG INHALER INHALATION SCH ×2 (08:22→20:35)
[2022-10-24] MEDS: HEPARIN SODIUM,PORCINE/PF 5,000 UNIT/0.5 ML SYRINGE SQ SCH ×2 (08:47→21:25)
[2022-10-24] MEDS: CYANOCOBALAMIN 500 MCG TAB PO SCH (08:47)
[2022-10-24] MEDS: LOSARTAN 25 MG TAB PO SCH (08:47)
[2022-10-24] MEDS: METOPROLOL TARTRATE 50 MG TAB PO SCH ×2 (08:47→21:25)
[2022-10-24] MEDS: CARBIDOPA-LEVODOPA 25-100 MG 1 EACH TAB PO SCH ×3 (08:47→18:03)
[2022-10-24] MEDS: MEMANTINE 10 MG TAB PO SCH ×2 (08:47→21:25)
[2022-10-24] MEDS: FAMOTIDINE 20 MG/2 ML VIAL IV SCH (08:47)
[2022-10-24] MEDS: DONEPEZIL 5 MG TAB PO SCH (08:48)
[2022-10-24] MEDS: PYRIDOXINE 50 MG TAB PO SCH (08:48)
[2022-10-24] MEDS: CHOLESTYRAMINE (WITH SUGAR) 4 GM PACKET PO SCH (10:09)
[2022-10-24] MEDS ORDERED: PEG 3350 (236 GM/BTL) + LYTES 4,000 ML BOTTLE PO ONE (12:07)
--- NOTE | 2022-10-24 12:57 | P.GSCN ---
History of Present Illness Consult date: 10/24/22 History of present illness: CHIEF COMPLAINT: Diarrhea and abdominal pain HISTORY OF PRESENT ILLNESS: This is a 72-year-old female presented to the hospital for complaints of left lower quadrant abdominal pain with diarrhea for the last 3 weeks. She does report pain after the bowel movement. She reports having about 4-6 stools per day. She does note weight loss. She denies any blood in the stools or any melena. Her stool for C. diff has been negative. She did have episode of vomiting yesterday morning. She has been having nausea and reports decreased appetite. Past medical history does include irritable bowel syndrome and possible colitis. Last colonoscopy was about 5 years ago and colon polyp removed. Patient denies any fever chills or sweats. She did have Covid earlier in August. Patient denies history of diverticulitis. Patient seen and examined with Dr. best PAST MEDICAL HISTORY: Breast Cancer, COPD, CVA/TIA, Hypertension, Memory Impairment, Myocardial Infarction ([place]), Neurologic Disorder, Renal Disease, Syncope, Vascular Disorde PAST SURGICAL HISTORY: Breast biopsy/lumpectomy, lumbar kyphoplasty/kenolog injections, depo medrol injections in lower back, loop recorder, colonoscopy/polypectomy, skin cancer removed from scalp MEDICATIONS: See below ALLERGIES: See below SOCIAL HISTORY: No illicit drug use. REVIEW OF SYSTEMS: CONSTITUTIONAL: Denies fever or chills. HEENT: Denies blurred vision, vision changes, or eye pain. Denies hemoptysis CARDIOVASCULAR: Denies chest pain or pressure. RESPIRATORY: No shortness of breath. GASTROINTESTINAL: See HPI for pertinent findings HEMATOLOGIC: Denies bleeding disorders. GENITOURINARY: Denies any blood in urine or increased urinary frequency. SKIN: Denies pruitis. Denies rash. PHYSICAL EXAM: VITAL SIGNS: Reviewed GENERAL: Well-developed in no acute distress. HEENT: No sclera icterus. Extraocular movements grossly intact. Moist buccal mucosa. Head is atraumatic, normocephalic. No nasal drainage. ABDOMEN: Soft. Nondistended. Tenderness to palpation left lower quadrant NEUROLOGIC: Alert and oriented. Cranial nerves II through XII grossly intact. LABORATORY DATA: WBC 4.7 Hgb 13.6 platelets 214 labs from 10/22/2022 Sodium 13 potassium 3.2 creatinine 0.7 labs from 10/23/2022 Stool lactoferrin positive Stool for C. diff negative IMAGING: Computed tomography scan abdomen and pelvis with oral contrast shows a right lower consolidation. Correlate for pneumonia. Loops of bowel within the abdomen and pelvis are normal. There are loops of bowel without contrast. Incompletely distended limiting their evaluation. Normal appendix. ASSESSMENT: 1. Left lower quadrant abdominal pain 2. Diarrhea 3. Hypokalemia PLAN: -Patient scheduled for colonoscopy tomorrow with DR. Best -Start clear liquid diet today -Start GoLYTELY bowel prep -Nothing by mouth after midnight -Continue to monitor and replace electrolytes -Stop Imodium and Questran while patient undergoing bowel prep Physician Exhaust Equipment Operator note has been reviewed by physician. Signing provider agrees with the documented findings, assessment, and plan of care. Past Medical History Past Medical History: Cancer, COPD, CVA/TIA, Hypertension, Memory Impairment, Myocardial Infarction ([place]), Neurologic Disorder, Renal Disease, Syncope, Vascular Disorder Additional Past Medical History / Comment(s): Beginnings of memory problems, 2012 breast cancer/lumpectomy/chemo/radiation, lumbar compression fractures, TTT/neurocardiogenic syncopies, cardiac valve disease, nuclear stress test indicated [place] at some time, PVCs, cat scan showed old areas infarct, small AAA/aortic plaque/thrombus, caratid artery disease, severe COPD, "kidney issues", benign colon polyp, colitis or IBS, possible celiac's disease, basal cell skin cancer removed, osteoporosis with reclast infusion, Last Myocardial Infarction Date:: unkn History of Any Multi-Drug Resistant Organisms: None Reported Past Surgical History: Back Surgery, Breast Surgery, Hysterectomy, Orthopedic Surgery Additional Past Surgical History / Comment(s): Breast biopsy/lumpectomy, lumbar kyphoplasty/kenolog injections, depo medrol injections in lower back, loop recorder, colonoscopy/polypectomy, skin cancer removed from scalp Past Anesthesia/Blood Transfusion Reactions: No Reported Reaction Past Psychological History: Anxiety, Depression Additional Psychological History / Comment(s): Pt resides with her spouse. She has a walker but does not use it much. She no longer drives, her spouse drives and manages her medications. Smoking Status: Former smoker Past Alcohol Use History: None Reported Additional Past Alcohol Use History / Comment(s): Pt started smoking in 1965 and quit in 2019. Past Drug Use History: None Reported - Past Family History Father Family Medical History: CVA/TIA Mother Family Medical History: Cancer Additional Family Medical History / Comment(s): Breast cancer. Medications and Allergies Home Medications Medication Instructions Recorded Confirmed Type Budesonide [Entocort EC] 3 mg PO BID 08/26/21 10/18/22 History Calcium Carbonate [Calcium] 300 mg PO DAILY 08/26/21 10/18/22 History Cholecalciferol [Vitamin D3 (10 10 mcg PO HS 08/26/21 10/18/22 History Mcg = 400 Iu)] Cyanocobalamin (Vitamin B-12) 1,000 mcg PO DAILY 08/26/21 10/18/22 History [Vitamin B-12] DULoxetine HCL [Cymbalta] 60 mg PO HS 08/26/21 10/18/22 History Fluticasone Propion/Salmeterol 1 puff INHALATION RT-BID 08/26/21 10/18/22 History [Advair 250-50 Diskus] Memantine [Namenda] 10 mg PO BID 08/26/21 10/18/22 History Metoprolol Tartrate [Lopressor] 50 mg PO BID 08/26/21 10/18/22 History Pyridoxine HCl (Vitamin B6) 100 mg PO DAILY 08/26/21 10/18/22 History [Vitamin B-6] Rosuvastatin [Crestor] 10 mg PO HS 08/26/21 10/18/22 History Vitamin E (Dl,Tocopheryl Acet) 400 unit PO HS 08/26/21 10/18/22 History [Vitamin E (400 Iu = 180 mg)] Aspirin EC [Ecotrin Low Dose] 81 mg PO HS 10/18/22 10/18/22 History Carbidopa-Levodopa 25-100 mg 1 tab PO PC-TID 10/18/22 10/18/22 History [Sinemet 25-100] Donepezil [Aricept] 5 mg PO DAILY 10/18/22 10/18/22 History Fludrocortisone [Florinef] 0.1 mg PO DAILY 10/18/22 10/18/22 History Losartan [Cozaar] 25 mg PO DAILY 10/18/22 10/18/22 History Allergies Allergy/AdvReac Type Severity Reaction Status Date / Time Cephalosporins Allergy Anaphylaxis Verified 10/18/22 22:26 Sulfa (Sulfonamide Allergy Rash/Hives Verified 10/18/22 22:26 Antibiotics) Surgical - Exam Vital Signs Temp Pulse Resp BP Pulse Ox 97.7 F 71 16 109/73 95 10/18/22 16:05 10/18/22 16:05 10/18/22 16:05 10/18/22 16:05 10/18/22 16:05 Results - Labs 10/22/22 04:10 10/23/22 06:25 Abnormal Lab Results - Last 24 Hours (Table) 10/22/22 10/23/22 Range/Units 15:00 06:25 Potassium 3.2 L (3.5-5.5) mmol/L Carbon Dioxide 18.1 L (20.0-27.5) mmol/L BUN 4.0 L (9.0-27.0) mg/dL BUN/Creatinine Ratio 5.31 L (12.00-20.00) Ratio Calcium 8.4 L (8.7-10.3) mg/dL Stool Lactoferrin POSITIVE A (NEGATIVE) Microbiology - Last 24 Hours (Table) 10/18/22 19:21 Stool Culture - Final Stool Diabetes panel 10/23/22 Range/Units 06:25 Sodium 138 (135-145) mmol/L Potassium 3.2 L (3.5-5.5) mmol/L Chloride 107 (96-109) mmol/L Carbon Dioxide 18.1 L (20.0-27.5) mmol/L BUN 4.0 L (9.0-27.0) mg/dL Creatinine 0.7 (0.6-1.5) mg/dL Glucose 85 (70-110) mg/dL Calcium 8.4 L (8.7-10.3) mg/dL Calcium panel 10/23/22 Range/Units 06:25 Calcium 8.4 L (8.7-10.3) mg/dL Pituitary panel 10/23/22 Range/Units 06:25 Sodium 138 (135-145) mmol/L Potassium 3.2 L (3.5-5.5) mmol/L Chloride 107 (96-109) mmol/L Carbon Dioxide 18.1 L (20.0-27.5) mmol/L BUN 4.0 L (9.0-27.0) mg/dL Creatinine 0.7 (0.6-1.5) mg/dL Glucose 85 (70-110) mg/dL Calcium 8.4 L (8.7-10.3) mg/dL Adrenal panel 10/23/22 Range/Units 06:25 Sodium 138 (135-145) mmol/L Potassium 3.2 L (3.5-5.5) mmol/L Chloride 107 (96-109) mmol/L Carbon Dioxide 18.1 L (20.0-27.5) mmol/L BUN 4.0 L (9.0-27.0) mg/dL Creatinine 0.7 (0.6-1.5) mg/dL Glucose 85 (70-110) mg/dL Calcium 8.4 L (8.7-10.3) mg/dL
--- NOTE | 2022-10-24 13:04 | P.PN ---
Subjective Progress Note Date: 10/24/22 Principal diagnosis: Diarrhea Patient is a 72-year-old female with a past medical history significant for hypertension COPD CVA TIA history of breast cancer status postlu mpectomy IBS patient did have a COVID-19 infection on 09/21/2022 and the patient has been given a 5-day course of remdesivir patient mentioned he started having diarrhea on 10/03/2022, patient did have CT of abdominal pelvis that was negative for any colitis stool culture negative in stool for C. diff came back negative as the patient fever or white count On today's evaluation that is 10/24/2022, the patient denies any fever or chills, the patient is still complaining of diarrhea and did have few loose stool since morning patient denies having any blood however there is some greenish mucus in the stool per the at the bedside, denies significant abdominal pain no nausea no vomiting no chest pain shortness of breath or cough Objective - Vital Signs Vital signs: Vital Signs Temp 98.5 F 10/24/22 07:45 Pulse 79 10/24/22 07:45 Resp 16 10/24/22 07:45 BP 172/94 10/24/22 07:45 Pulse Ox 91 L 10/24/22 07:45 FiO2 Intake & Output 10/23/22 10/24/22 10/24/22 18:59 06:59 18:59 Intake Total 118 925 Balance 118 925 Intake: Intake, IV Titration 925 Amount Sodium Chloride 0.9% 1, 925 000 ml @ 75 mls/hr IV . [id number] [facility] Rx#:[id number] Oral 118 Other: # Voids 2 # Bowel Movements 4 - Exam GENERAL DESCRIPTION: An elderly female lying in bed in no distress RESPIRATORY SYSTEM: Unlabored breathing , decreased breath sounds at bases HEART: S1 S2 regular rate and rhythm , ABDOMEN: Soft , no tenderness EXTREMITIES: No edema feet - Labs CBC & Chem 7: 10/22/22 04:10 10/23/22 06:25 Labs: Abnormal Lab Results - Last 24 Hours (Table) 10/22/22 10/23/22 Range/Units 15:00 06:25 Potassium 3.2 L (3.5-5.5) mmol/L Carbon Dioxide 18.1 L (20.0-27.5) mmol/L BUN 4.0 L (9.0-27.0) mg/dL BUN/Creatinine Ratio 5.31 L (12.00-20.00) Ratio Calcium 8.4 L (8.7-10.3) mg/dL Stool Lactoferrin POSITIVE A (NEGATIVE) Microbiology - Last 24 Hours (Table) 10/18/22 19:21 Stool Culture - Final Stool Assessment and Plan (1) Diarrhea Current Visit: Yes Status: Acute Code(s): R19.7 - DIARRHEA, UNSPECIFIED SNOMED Code(s): 69123050 Plan: 1patient is in the hospital with diarrhea apparently has been going on for about 3 weeks in this patient with a recent diagnosis of COVID-19 and has received remdesivir no antibiotic therapy patient is afebrile white count is normal CT abdominal pelvis did not mention any evidence of colitis clinic suspicion is low for infectious etiology for her diarrhea though not entirely excluded, we will check inflammatory markers 2- patient did have abnormal CT with a right lobe consolidation however the patient do not have respiratory symptoms clinic suspicion is low for pneumonia 3-stools for C. difficile came back negative, stool culture has been negative as well, patient has been started on Imodium for symptomatic relief patient be continued along with a Questran with Gen. surgery has been consulted for possible colonoscopy at the bedside questions were answered Time with Patient: Less than 30
[2022-10-24 13:19] VITALS: BMI 20.2
[2022-10-24 17:13] LABS: Magnesium 1.5 mg/dL (1.5-2.4)
[2022-10-24 17:19] LABS: African American GFR (CKD) 98.9 (60.0-200.0); Anion Gap 20.8 mmol/L (10.00-18.00); BUN/Creat Ratio 3.57 Ratio (12.00-20.00); Blood Urea Nitrogen 2.5 mg/dL (9.0-27.0); Calcium 8.9 mg/dL (8.7-10.3); Carbon Dioxide 15.2 mmol/L (20.0-27.5); Non-African American GFR(CKD) 85.4 (60.0-200.0); Potassium 3.2 mmol/L (3.5-5.5)
[2022-10-24] MEDS: POTASSIUM CHLORIDE ER 20 MEQ TAB.ER PO SCH ×2 (18:03→21:26)
[2022-10-24] MEDS: ATORVASTATIN 20 MG TAB PO SCH (21:24)
[2022-10-24] MEDS: DULoxetine HCL 60 MG CAPSULE.DR PO SCH (21:24)
[2022-10-24] MEDS: ASPIRIN 81 MG PO SCH (21:25)
[2022-10-24] MEDS: VITAMIN E (DL,TOCOPHERYL ACET) 400 UNIT (180 MG) CAP PO SCH (21:26)
--- NOTE | 2022-10-24 23:08 | P.PN ---
Subjective Patient is a 72-year-old female with a known history of CVA/TIA, COPD, hypertension, memory impairment, history of breast cancer s/p lumpectomy and chemo and radiation, severe COPD, basal cell cancer of the skin removed., IBS, possible celiac disease, anxiety/depression and prior history of smoking presents to ER with complaints of diarrhea for the past 2 weeks. Patient lost about 13 pounds and is dehydrated. Patient states that her symptoms started while she was at [facility] for rehab after kyphoplasty upper back about a month ago. Patient was tested positive for COVID-19 while she was at rehab. After coming back from rehab/started having diarrhea for the past 2 weeks. Patient is having watery diarrhea 2-3 times per day. Nonbloody. Patient was tested positive for C. difficile infection twice negative. Denies any recent antibiotic use. Patient was having cramping abdominal pain while having bowel movement. Patient does have nausea no episodes of vomiting. No complaints of chest pain or shortness of breath. No fever no chills. Patient states that she did have colonoscopy in 2019. Was seen by gastroenterology. Patient has been taking budesonide tablets since then. Chest x-ray showed no acute pulmonary process. Laboratory data WBC 6.1 hemoglobin 16.1 platelets 274 Sodium 137 potassium 3.4 chloride 98 bicarb is 31 BUN 15 and creatinine 0.98 and blood sugar 100 lactic acid 1.3 and calcium 11.0 on admission liver enzymes are not elevated amylase 37 lipase 118 Urinalysis is negative for infection. Stool for occult blood is negative. 10/20/2022 Patient is currently lying in bed. Awake alert and oriented x3. Still having diarrhea and cramping abdominal pain with bowel meant. No complaints of chest pain or shortness of breath. Patient has been afebrile. No nausea vomiting abdominal pain or diarrhea. Patient is also complaining of nausea. Not tolerating diet very well. Currently being continued on normal saline at 75 cc/h. Laboratory data showed sodium 138, potassium 4.0, BUN 6.4 and creatinine 0.8 and calcium 8.6. 10/21/2022 Patient is currently lying in the bed. Awake alert and oriented x3. No complaints of chest pain or shortness of breath. Patient still having diarrhea without any improvement. Being continued on Lomotil. Also on Questran. Laboratory data showed BUN 6.4 and creatinine 0.8. Procalcitonin level is elevated at 0.27. Stool for lactoferrin and WBCs were sent and follow-up culture report. Patient was started on antibiotics in the form of Flagyl. CT of the abdomen pelvis was ordered. No acute process was noted. ID consult for evaluation. Discussed with the family at bedside in detail. 10/22/2022 Patient is currently resting in the bed. Awake alert and oriented x3. Patient did have 3 episodes of diarrhea this morning. No bowel movement since afternoon. No complaints of chest pain. No nausea vomiting abdominal pain. No cough or sputum production. Patient has been afebrile. ID is on board. Laboratory data showed potassium 3.4 chloride 107 BUN 6.1 and creatinine 0.7 and CRP 8.6. I'm resuming the care of the patient on: 10/23/2022 This is a pleasant 72 years old female who was admitted with signs and symptoms of diarrhea for the last 2-3 weeks. Infectious process was suspected however stool culture came back negative, C. diff negative and the Flagyl was dis continued. Infectious disease input is appreciated Patient today shows comfortable and relaxed, she denies abdominal pain or vomiting. She tolerates that well. She states that she had 1 formed and one was bowel movement last night and 1 somewhat formed bowel movement this morning, patient and daughter at bedside think patient is improving. Her pro calcitonin is mildly elevated and is trending down to 0.12. No fever, no leukocytosis Patient currently treated symptomatically with Questran and Imodium when necessary Also patient has evidence of high blood pressure and hypokalemia, she is on fl udrocortisone 0.1 mg daily, patient does not know why she is on this medication which could be held for now 10/07/2022 Today patient and at bedside still concerned patient still have diarrhea , she has to loose bowel movement this morning Patient is still complaining of from mild left lower quadrant pain and tenderness Blood pressure is on the high side with systolic 140-170 therefore don't allow her for normal saline to 50 mL per hour Patient currently off antibiotic C. diff and stool culture negative Objective - Vital Signs Vital signs: Vital Signs Temp 98.5 F 10/24/22 07:45 Pulse 79 10/24/22 07:45 Resp 16 10/24/22 07:45 BP 172/94 10/24/22 07:45 Pulse Ox 91 L 10/24/22 07:45 FiO2 Intake & Output 10/23/22 10/24/22 10/24/22 18:59 06:59 18:59 Intake Total 118 925 Balance 118 925 Weight 51.71 kg Intake: Intake, IV Titration 925 Amount Sodium Chloride 0.9% 1, 925 000 ml @ 75 mls/hr IV . [id number] [facility] Rx#:[id number] Oral 118 Other: # Voids 2 # Bowel Movements 4 - Exam GENERAL: The patient is alert and oriented x3, not in any acute distress. Well developed, well nourished. HEENT: Pupils are round and equally reacting to light. EOMI. No scleral icterus. No conjunctival pallor. Normocephalic, atraumatic. No pharyngeal erythema. No thyromegaly. CARDIOVASCULAR: S1 and S2 present. No murmurs, rubs, or gallops. PULMONARY: Chest is clear to auscultation, no wheezing . no crackles. ABDOMEN: Soft, nontender, nondistended, normoactive bowel sounds. No palpable organomegaly. MUSCULOSKELETAL: No joint swelling or deformity. EXTREMITIES: No cyanosis, clubbing, or pedal edema. NEUROLOGICAL: Gross neurological examination did not reveal any focal deficits. SKIN: No rashes. no petechiae. - Labs CBC & Chem 7: 10/22/22 04:10 10/24/22 07:00 Labs: Abnormal Lab Results - Last 24 Hours (Table) 10/22/22 Range/Units 15:00 Stool Lactoferrin POSITIVE A (NEGATIVE) Microbiology - Last 24 Hours (Table) 10/18/22 19:21 Stool Culture - Final Stool Assessment and Plan Assessment: Acute diarrhea x2 weeks. C. difficile testing negative,.B viral versus other, improving History of IBS and colitis. On budesonide tablets at home. Prior history of colonoscopy in 2019 Hypokalemia Dehydration volume depletion Recent COVID-19 infection about a month ago History of recent kyphoplasty of her back and was at rehab. History of CVA/TIA COPD History of skin cancer removal History of [place] no PCI history Anxiety/depression Prior history of smoking Plan: Discontinue antibiotic per ID team Continue with normal saline at 50 mL/h Surgical team consult for colonoscopy in the morning (no GI service at this facility this week) Monitor the patient while off antibiotics Labs and medication and images were reviewed Continue symptomatic treatment with Questran and Imodium when necessary Labs and medication were reviewed.. Continue same treatment. Continue with symptomatic treatment. Resume home medication. Monitor labs and vitals. DVT and GI prophylaxis. Further recommendations as per clinical course of the patient DVT prophylaxis: Subcutaneous heparin GI Prophylaxis: Pepcid PT/OT: Pending Prognosis is guarded
[2022-10-25 07:10] LABS: HCT 44.9 % (34.0-46.0); HGB 14.7 gm/dL (11.4-16.0); MCH 30.7 pg (25.0-35.0); MCHC 32.8 g/dL (31.0-37.0); MCV 93.7 fL (80.0-100.0); Mean Platelet Volume 7.9; Platelet Count 264 k/uL (150-450); RBC 4.79 m/uL (3.80-5.40); RDW 14.8 % (11.5-15.5)
[2022-10-25 07:23] LABS: African American GFR (CKD) >90 (>60 ml/min/1.73 sqM); Anion Gap 11 mmol/L; Blood Urea Nitrogen 3 mg/dL (7-17); Calcium 9.1 mg/dL (8.4-10.2); Carbon Dioxide 22 mmol/L (22-30); Chloride 105 mmol/L (98-107); Glucose 77 mg/dL (74-99); Magnesium 1.4 mg/dL (1.6-2.3); Non-African American GFR(CKD) 89 (>60 ml/min/1.73 sqM); Sodium 138 mmol/L (137-145)
[2022-10-25] MEDS: SYMBICORT 80-4.5 MCG INHALER INHALATION SCH ×2 (09:01→21:20)
[2022-10-25] MEDS: SODIUM CHLORIDE 0.9% 1,000 ML IV SCH (09:04)
[2022-10-25] MEDS: POTASSIUM CHLORIDE ER 20 MEQ TAB.ER PO SCH ×2 (09:49→12:19)
[2022-10-25] MEDS: MAGNESIUM SULFATE-D5W PMX 1 GM in DEXTROSE/WATER 1 100ML.BAG IVPB SCH ×3 (09:49→21:46)
[2022-10-25] MEDS: METOPROLOL TARTRATE 50 MG TAB PO SCH ×2 (10:01→21:45)
[2022-10-25] MEDS: MEMANTINE 10 MG TAB PO SCH (10:01)
[2022-10-25] MEDS: LOSARTAN 25 MG TAB PO SCH (10:01)
[2022-10-25] MEDS: CARBIDOPA-LEVODOPA 25-100 MG 1 EACH TAB PO SCH ×3 (10:02→17:51)
[2022-10-25] MEDS: HEPARIN SODIUM,PORCINE/PF 5,000 UNIT/0.5 ML SYRINGE SQ SCH ×2 (10:02→21:44)
[2022-10-25] MEDS: CYANOCOBALAMIN 500 MCG TAB PO SCH (10:02)
[2022-10-25] MEDS: FAMOTIDINE 20 MG/2 ML VIAL IV SCH (10:03)
[2022-10-25] MEDS: PYRIDOXINE 50 MG TAB PO SCH (12:18)
[2022-10-25] MEDS: DONEPEZIL 5 MG TAB PO SCH (12:19)
[2022-10-25] MEDS ORDERED: IV FLUID CONTINUATION 1,000 ML IV ONE (12:58)
[2022-10-25] MEDS ORDERED: LIDOCAINE 2% INJ 20 MG/ML (2 ML VIAL) ONE (12:58)
[2022-10-25] MEDS ORDERED: PROPOFOL 10 MG/ML 20 ML VIAL IV ONE (12:58)
--- NOTE | 2022-10-25 13:22 | P.PN ---
Subjective Patient is a 72-year-old female with a known history of CVA/TIA, COPD, hypertension, memory impairment, history of breast cancer s/p lumpectomy and chemo and radiation, severe COPD, basal cell cancer of the skin removed., IBS, possible celiac disease, anxiety/depression and prior history of smoking presents to ER with complaints of diarrhea for the past 2 weeks. Patient lost about 13 pounds and is dehydrated. Patient states that her symptoms started while she was at [facility] for rehab after kyphoplasty upper back about a month ago. Patient was tested positive for COVID-19 while she was at rehab. After coming back from rehab/started having diarrhea for the past 2 weeks. Patient is having watery diarrhea 2-3 times per day. Nonbloody. Patient was tested positive for C. difficile infection twice negative. Denies any recent antibiotic use. Patient was having cramping abdominal pain while having bowel movement. Patient does have nausea no episodes of vomiting. No complaints of chest pain or shortness of breath. No fever no chills. Patient states that she did have colonoscopy in 2019. Was seen by gastroenterology. Patient has been taking budesonide tablets since then. Chest x-ray showed no acute pulmonary process. Laboratory data WBC 6.1 hemoglobin 16.1 platelets 274 Sodium 137 potassium 3.4 chloride 98 bicarb is 31 BUN 15 and creatinine 0.98 and blood sugar 100 lactic acid 1.3 and calcium 11.0 on admission liver enzymes are not elevated amylase 37 lipase 118 Urinalysis is negative for infection. Stool for occult blood is negative. 10/20/2022 Patient is currently lying in bed. Awake alert and oriented x3. Still having diarrhea and cramping abdominal pain with bowel meant. No complaints of chest pain or shortness of breath. Patient has been afebrile. No nausea vomiting abdominal pain or diarrhea. Patient is also complaining of nausea. Not tolerating diet very well. Currently being continued on normal saline at 75 cc/h. Laboratory data showed sodium 138, potassium 4.0, BUN 6.4 and creatinine 0.8 and calcium 8.6. 10/21/2022 Patient is currently lying in the bed. Awake alert and oriented x3. No complaints of chest pain or shortness of breath. Patient still having diarrhea without any improvement. Being continued on Lomotil. Also on Questran. Laboratory data showed BUN 6.4 and creatinine 0.8. Procalcitonin level is elevated at 0.27. Stool for lactoferrin and WBCs were sent and follow-up culture report. Patient was started on antibiotics in the form of Flagyl. CT of the abdomen pelvis was ordered. No acute process was noted. ID consult for evaluation. Discussed with the family at bedside in detail. 10/22/2022 Patient is currently resting in the bed. Awake alert and oriented x3. Patient did have 3 episodes of diarrhea this morning. No bowel movement since afternoon. No complaints of chest pain. No nausea vomiting abdominal pain. No cough or sputum production. Patient has been afebrile. ID is on board. Laboratory data showed potassium 3.4 chloride 107 BUN 6.1 and creatinine 0.7 and CRP 8.6. I'm resuming the care of the patient on: 10/23/2022 This is a pleasant 72 years old female who was admitted with signs and symptoms of diarrhea for the last 2-3 weeks. Infectious process was suspected however stool culture came back negative, C. diff negative and the Flagyl was dis continued. Infectious disease input is appreciated Patient today shows comfortable and relaxed, she denies abdominal pain or vomiting. She tolerates that well. She states that she had 1 formed and one was bowel movement last night and 1 somewhat formed bowel movement this morning, patient and daughter at bedside think patient is improving. Her pro calcitonin is mildly elevated and is trending down to 0.12. No fever, no leukocytosis Patient currently treated symptomatically with Questran and Imodium when necessary Also patient has evidence of high blood pressure and hypokalemia, she is on fl udrocortisone 0.1 mg daily, patient does not know why she is on this medication which could be held for now 10/24/2022 Today patient and at bedside still concerned patient still have diarrhea , she has to loose bowel movement this morning Patient is still complaining of from mild left lower quadrant pain and tenderness Blood pressure is on the high side with systolic 140-170 therefore don't allow her for normal saline to 50 mL per hour Patient currently off antibiotic C. diff and stool culture negative 10/25/2022 Patient was bowel movement was yesterday morning that she had preparation for her colonoscopy and she has frequent bowel movements the last night. This morning she does not have any more bowel movement Her mild left lower quadrant abdominal pain and tenderness are resolved today. Patient still with poor appetite Low potassium and magnesium replaced, vital stable Patient is counseled for colonoscopy today Still lactoferrin is positive. Objective - Vital Signs Vital signs: Vital Signs Temp 98.0 F 10/25/22 07:38 Pulse 76 10/25/22 07:38 Resp 17 10/25/22 07:38 BP 159/79 10/25/22 07:38 Pulse Ox 91 L 10/25/22 07:38 FiO2 Intake & Output 10/24/22 10/25/22 10/25/22 18:59 06:59 18:59 Intake Total 1445 Balance 1445 Weight 51.71 kg Intake: Intake, IV Titration 900 Amount Sodium Chloride 0.9% 1, 900 000 ml @ 50 mls/hr IV . Q20H [facility] Rx#:[id number] Oral 545 Other: # Voids 2 # Bowel Movements 1 - Exam GENERAL: The patient is alert and oriented x3, not in any acute distress. Well developed, well nourished. HEENT: Pupils are round and equally reacting to light. EOMI. No scleral icterus. No conjunctival pallor. Normocephalic, atraumatic. No pharyngeal erythema. No thyromegaly. CARDIOVASCULAR: S1 and S2 present. No murmurs, rubs, or gallops. PULMONARY: Chest is clear to auscultation, no wheezing . no crackles. ABDOMEN: Soft, nontender, nondistended, normoactive bowel sounds. No palpable organomegaly. MUSCULOSKELETAL: No joint swelling or deformity. EXTREMITIES: No cyanosis, clubbing, or pedal edema. NEUROLOGICAL: Gross neurological examination did not reveal any focal deficits. SKIN: No rashes. no petechiae. - Labs CBC & Chem 7: 10/25/22 06:39 10/25/22 06:39 Labs: Abnormal Lab Results - Last 24 Hours (Table) 10/24/22 10/25/22 Range/Units 07:00 06:39 Potassium 3.2 L 3.0 L (3.5-5.5) mmol/L Carbon Dioxide 15.2 L (20.0-27.5) mmol/L Anion Gap 20.80 H (10.00-18.00) mmol/L BUN 2.5 L 3 L (9.0-27.0) mg/dL BUN/Creatinine Ratio 3.57 L (12.00-20.00) Ratio Magnesium 1.4 L (1.6-2.3) mg/dL Microbiology - Last 24 Hours (Table) 10/18/22 19:21 Stool Culture - Final Stool Assessment and Plan Assessment: Acute diarrhea x2 weeks. C. difficile testing negative,.B viral versus other, improving History of IBS and colitis. On budesonide tablets at home. Prior history of colonoscopy in 2019 Hypokalemia Dehydration volume depletion Recent COVID-19 infection about a month ago History of recent kyphoplasty of her back and was at rehab. History of CVA/TIA COPD History of skin cancer removal History of [place] no PCI history Anxiety/depression Prior history of smoking Plan: Continue with normal saline at 50 mL/h Surgical team consult for colonoscopy (no GI service at this facility this week) Monitor the patient while off antibiotics Labs and medication and images were reviewed Continue symptomatic treatment with Questran and Imodium when necessary Labs and medication were reviewed.. Continue same treatment. Continue with symptomatic treatment. Resume home medication. Monitor labs and vitals. DVT and GI prophylaxis. Further recommendations as per clinical course of the patient DVT prophylaxis: Subcutaneous heparin GI Prophylaxis: Pepcid PT/OT: Pending Prognosis is guarded
--- NOTE | 2022-10-25 13:23 | P.OP ---
Date of Procedure: 10/25/22 Preoperative Diagnosis: Diarrhea Postoperative Diagnosis: Possible proctitis, pathology pending Procedure(s) Performed: Colonoscopy Anesthesia: MAC Surgeon: Claus Castaneda Pathology: other (Rectum) Condition: stable Disposition: PACU Description of Procedure: The patient's placed on the endoscopy table in the lateral position. She received IV sedation. Digital rectal exam was performed. This revealed no abnormalities. The flexible colonoscope was then placed in patient's anus and passed throughout the entire colon. The ileocecal valve was visualized. The cecum appeared normal. The ascending and transverse colon appeared normal. The descending and sigmoid colon appeared normal. The scope was then brought back the rectum. Due to the patient's symptoms of diarrhea. A random rectal biopsies performed. There was no significant inflammatory changes the rectum seen. The scope was withdrawn through the anus. Patient tolerated the procedure well.
[2022-10-25] MEDS ORDERED: MAGNESIUM SULFATE-D5W PMX 1 GM in DEXTROSE/WATER 1 100ML.BAG IVPB SCH (13:30)
--- NOTE | 2022-10-25 14:03 | P.PN ---
Subjective Progress Note Date: 10/25/22 Principal diagnosis: Diarrhea Patient is a 72-year-old female with a past medical history significant for hypertension COPD CVA TIA history of breast cancer status postlu mpectomy IBS patient did have a COVID-19 infection on 09/21/2022 and the patient has been given a 5-day course of remdesivir patient mentioned he started having diarrhea on 10/03/2022, patient did have CT of abdominal pelvis that was negative for any colitis stool culture negative in stool for C. diff came back negative as the patient fever or white count On today's evaluation that is 10/25/2022, the patient remains to be afebrile, the patient is feeling slightly better and apparently did have improvement in her diarrhea, patient denies having any blood in the stool , the patient denies abdominal pain no nausea no vomiting no chest pain shortness of breath or cough Objective - Vital Signs Vital signs: Vital Signs Temp 98.0 F 10/25/22 07:38 Pulse 76 10/25/22 07:38 Resp 17 10/25/22 07:38 BP 159/79 10/25/22 07:38 Pulse Ox 91 L 10/25/22 07:38 FiO2 Intake & Output 10/24/22 10/25/22 10/25/22 18:59 06:59 18:59 Intake Total 1445 Balance 1445 Weight 51.71 kg Intake: Intake, IV Titration 900 Amount Sodium Chloride 0.9% 1, 900 000 ml @ 50 mls/hr IV . Q20H [facility] Rx#:[id number] Oral 545 Other: # Voids 2 # Bowel Movements 1 - Exam GENERAL DESCRIPTION: An elderly female lying in bed in no distress RESPIRATORY SYSTEM: Unlabored breathing , decreased breath sounds at bases HEART: S1 S2 regular rate and rhythm , ABDOMEN: Soft , no tenderness EXTREMITIES: No edema feet - Labs CBC & Chem 7: 10/25/22 06:39 10/25/22 06:39 Labs: Abnormal Lab Results - Last 24 Hours (Table) 10/24/22 10/25/22 Range/Units 07:00 06:39 Potassium 3.2 L 3.0 L (3.5-5.5) mmol/L Carbon Dioxide 15.2 L (20.0-27.5) mmol/L Anion Gap 20.80 H (10.00-18.00) mmol/L BUN 2.5 L 3 L (9.0-27.0) mg/dL BUN/Creatinine Ratio 3.57 L (12.00-20.00) Ratio Magnesium 1.4 L (1.6-2.3) mg/dL Microbiology - Last 24 Hours (Table) 10/18/22 19:21 Stool Culture - Final Stool Assessment and Plan (1) Diarrhea Current Visit: Yes Status: Acute Code(s): R19.7 - DIARRHEA, UNSPECIFIED SNOMED Code(s): 32187353 Plan: 1patient is in the hospital with diarrhea apparently has been going on for about 3 weeks in this patient with a recent diagnosis of COVID-19 and has received remdesivir no antibiotic therapy patient is afebrile white count is normal CT abdominal pelvis did not mention any evidence of colitis clinic markie picion is low for infectious etiology for her diarrhea though not entirely excluded, we will check inflammatory markers 2- patient did have abnormal CT with a right lobe consolidation however the wiliam ent do not have respiratory symptoms clinic suspicion is low for pneumonia 3-stools for C. difficile came back negative, stool culture has been negative as well, patient seemed to have shown clinical improvement and will continue with the symptomatic treatment awaiting colonoscopy scheduled for this morning at the bedside questions were answered Time with Patient: Less than 30
[2022-10-25] MEDS: LOPERAMIDE 2 MG CAP PO PRN (18:16)
[2022-10-25 19:55] VITALS: RESP 16
[2022-10-25] MEDS ORDERED: POTASSIUM CHLORIDE ER 20 MEQ TAB.ER PO STA (21:00)
[2022-10-25] MEDS: ASPIRIN 81 MG PO SCH (21:45)
[2022-10-25] MEDS: ATORVASTATIN 20 MG TAB PO SCH (21:45)
[2022-10-25] MEDS: DULoxetine HCL 60 MG CAPSULE.DR PO SCH (21:45)
[2022-10-25] MEDS: VITAMIN E (DL,TOCOPHERYL ACET) 400 UNIT (180 MG) CAP PO SCH (21:46)
[2022-10-26] MEDS: MAGNESIUM SULFATE-D5W PMX 1 GM in DEXTROSE/WATER 1 100ML.BAG IVPB SCH (00:21)
[2022-10-26] MEDS: SODIUM CHLORIDE 0.9% 1,000 ML IV SCH (00:27)
[2022-10-26] MEDS: MEMANTINE 10 MG TAB PO SCH (03:07)
[2022-10-26] MEDS: SYMBICORT 80-4.5 MCG INHALER INHALATION SCH ×2 (07:45→19:38)
[2022-10-26 07:51] LABS: African American GFR (CKD) >90 (>60 ml/min/1.73 sqM); Anion Gap 7 mmol/L; Blood Urea Nitrogen 3 mg/dL (7-17); Calcium 8.8 mg/dL (8.4-10.2); Carbon Dioxide 22 mmol/L (22-30); Chloride 108 mmol/L (98-107); Glucose 99 mg/dL (74-99); Magnesium 2.3 mg/dL (1.6-2.3); Non-African American GFR(CKD) 88 (>60 ml/min/1.73 sqM); Potassium 3.7 mmol/L (3.5-5.1); Sodium 137 mmol/L (137-145)
[2022-10-26] MEDS ORDERED: HYDROcodone/APAP 5-325MG 1 EACH TAB PO PRN (08:37)
[2022-10-26] MEDS: FAMOTIDINE 20 MG/2 ML VIAL IV SCH (08:52)
[2022-10-26] MEDS: CARBIDOPA-LEVODOPA 25-100 MG 1 EACH TAB PO SCH ×3 (08:59→17:22)
[2022-10-26] MEDS: METOPROLOL TARTRATE 50 MG TAB PO SCH ×2 (08:59→21:04)
[2022-10-26] MEDS: HEPARIN SODIUM,PORCINE/PF 5,000 UNIT/0.5 ML SYRINGE SQ SCH ×2 (08:59→21:04)
[2022-10-26] MEDS: LOPERAMIDE 2 MG CAP PO PRN (08:59)
[2022-10-26] MEDS: LOSARTAN 25 MG TAB PO SCH (08:59)
[2022-10-26] MEDS: CYANOCOBALAMIN 500 MCG TAB PO SCH (08:59)
[2022-10-26] MEDS: PYRIDOXINE 50 MG TAB PO SCH (09:00)
--- NOTE | 2022-10-26 13:04 | P.PN ---
Subjective Patient is a 72-year-old female with a known history of CVA/TIA, COPD, hypertension, memory impairment, history of breast cancer s/p lumpectomy and chemo and radiation, severe COPD, basal cell cancer of the skin removed., IBS, possible celiac disease, anxiety/depression and prior history of smoking presents to ER with complaints of diarrhea for the past 2 weeks. Patient lost about 13 pounds and is dehydrated. Patient states that her symptoms started while she was at [facility] for rehab after kyphoplasty upper back about a month ago. Patient was tested positive for COVID-19 while she was at rehab. After coming back from rehab/started having diarrhea for the past 2 weeks. Patient is having watery diarrhea 2-3 times per day. Nonbloody. Patient was tested positive for C. difficile infection twice negative. Denies any recent antibiotic use. Patient was having cramping abdominal pain while having bowel movement. Patient does have nausea no episodes of vomiting. No complaints of chest pain or shortness of breath. No fever no chills. Patient states that she did have colonoscopy in 2019. Was seen by gastroenterology. Patient has been taking budesonide tablets since then. Chest x-ray showed no acute pulmonary process. Laboratory data WBC 6.1 hemoglobin 16.1 platelets 274 Sodium 137 potassium 3.4 chloride 98 bicarb is 31 BUN 15 and creatinine 0.98 and blood sugar 100 lactic acid 1.3 and calcium 11.0 on admission liver enzymes are not elevated amylase 37 lipase 118 Urinalysis is negative for infection. Stool for occult blood is negative. 10/20/2022 Patient is currently lying in bed. Awake alert and oriented x3. Still having diarrhea and cramping abdominal pain with bowel meant. No complaints of chest pain or shortness of breath. Patient has been afebrile. No nausea vomiting abdominal pain or diarrhea. Patient is also complaining of nausea. Not tolerating diet very well. Currently being continued on normal saline at 75 cc/h. Laboratory data showed sodium 138, potassium 4.0, BUN 6.4 and creatinine 0.8 and calcium 8.6. 10/21/2022 Patient is currently lying in the bed. Awake alert and oriented x3. No complaints of chest pain or shortness of breath. Patient still having diarrhea without any improvement. Being continued on Lomotil. Also on Questran. Laboratory data showed BUN 6.4 and creatinine 0.8. Procalcitonin level is elevated at 0.27. Stool for lactoferrin and WBCs were sent and follow-up culture report. Patient was started on antibiotics in the form of Flagyl. CT of the abdomen pelvis was ordered. No acute process was noted. ID consult for evaluation. Discussed with the family at bedside in detail. 10/22/2022 Patient is currently resting in the bed. Awake alert and oriented x3. Patient did have 3 episodes of diarrhea this morning. No bowel movement since afternoon. No complaints of chest pain. No nausea vomiting abdominal pain. No cough or sputum production. Patient has been afebrile. ID is on board. Laboratory data showed potassium 3.4 chloride 107 BUN 6.1 and creatinine 0.7 and CRP 8.6. I'm resuming the care of the patient on: 10/23/2022 This is a pleasant 72 years old female who was admitted with signs and symptoms of diarrhea for the last 2-3 weeks. Infectious process was suspected however stool culture came back negative, C. diff negative and the Flagyl was dis continued. Infectious disease input is appreciated Patient today shows comfortable and relaxed, she denies abdominal pain or vomiting. She tolerates that well. She states that she had 1 formed and one was bowel movement last night and 1 somewhat formed bowel movement this morning, patient and daughter at bedside think patient is improving. Her pro calcitonin is mildly elevated and is trending down to 0.12. No fever, no leukocytosis Patient currently treated symptomatically with Questran and Imodium when necessary Also patient has evidence of high blood pressure and hypokalemia, she is on fl udrocortisone 0.1 mg daily, patient does not know why she is on this medication which could be held for now 10/24/2022 Today patient and at bedside still concerned patient still have diarrhea , she has to loose bowel movement this morning Patient is still complaining of from mild left lower quadrant pain and tenderness Blood pressure is on the high side with systolic 140-170 therefore don't allow her for normal saline to 50 mL per hour Patient currently off antibiotic C. diff and stool culture negative 10/25/2022 Patient was bowel movement was yesterday morning that she had preparation for her colonoscopy and she has frequent bowel movements the last night. This morning she does not have any more bowel movement Her mild left lower quadrant abdominal pain and tenderness are resolved today. Patient still with poor appetite Low potassium and magnesium replaced, vital stable Patient is counseled for colonoscopy today Still lactoferrin is positive. 10/26/2022 Patient had colonoscopy yesterday which was unremarkable except for mild proctatitis. Biopsies were taken and pending This morning patient was still complaining from left lower quadrant pain. and tenderness, i discussed with nightmares she had 2 small bowel movements. also SHE has moderate light brown bowel movement this morning. Patient is not eating well today. pt was encouraged to eat started on norco for pain control and to help her with diarrhea Case discussed with the patient for discharge PT/OT evaluation Possible discharge in 24-48 hours she keeps improving Objective - Vital Signs Vital signs: Vital Signs Temp 98.7 F 10/26/22 06:58 Pulse 75 10/26/22 06:58 Resp 16 10/26/22 06:58 BP 153/83 10/26/22 06:58 Pulse Ox 93 L 10/26/22 06:58 FiO2 Intake & Output 10/25/22 10/26/22 10/26/22 18:59 06:59 18:59 Intake Total 50 Balance 50 Intake: IV 50 Other: Voiding Method Bedside Commode # Voids 2 1 # Bowel Movements 3 - Exam GENERAL: The patient is alert and oriented x3, not in any acute distress. Well developed, well nourished. HEENT: Pupils are round and equally reacting to light. EOMI. No scleral icterus. No conjunctival pallor. Normocephalic, atraumatic. No pharyngeal erythema. No thyromegaly. CARDIOVASCULAR: S1 and S2 present. No murmurs, rubs, or gallops. PULMONARY: Chest is clear to auscultation, no wheezing . no crackles. ABDOMEN: Soft, nontender, nondistended, normoactive bowel sounds. No palpable organomegaly. MUSCULOSKELETAL: No joint swelling or deformity. EXTREMITIES: No cyanosis, clubbing, or pedal edema. NEUROLOGICAL: Gross neurological examination did not reveal any focal deficits. SKIN: No rashes. no petechiae. - Labs CBC & Chem 7: 10/25/22 06:39 10/26/22 06:41 Labs: Abnormal Lab Results - Last 24 Hours (Table) 10/26/22 Range/Units 06:41 Chloride 108 H (98-107) mmol/L BUN 3 L (7-17) mg/dL Assessment and Plan Assessment: Acute diarrhea x2 weeks. C. difficile testing negative,.B viral versus other, improving History of IBS and colitis. On budesonide tablets at home. Prior history of colonoscopy in 2019 Hypokalemia Dehydration volume depletion Recent COVID-19 infection about a month ago History of recent kyphoplasty of her back and was at rehab. History of CVA/TIA COPD History of skin cancer removal History of [place] no PCI history Anxiety/depression Prior history of smoking Plan: dc NS 50 mL/h, encourage pt to eat start norco f/u colonic biopsies Surgical team consult for colonoscopy (no GI service at this facility this week) cleared pt for discharge Monitor the patient while off antibiotics Labs and medication and images were reviewed Continue symptomatic treatment with Questran and Imodium when necessary Labs and medication were reviewed.. Continue same treatment. Continue with symptomatic treatment. Resume home medication. Monitor labs and vitals. DVT and GI prophylaxis. Further recommendations as per clinical course of the patient DVT prophylaxis: Subcutaneous heparin GI Prophylaxis: Pepcid PT/OT: Pending Prognosis is guarded
[2022-10-26] MEDS: predniSONE 20 MG TAB PO SCH (13:50)
--- NOTE | 2022-10-26 14:11 | P.PN ---
Subjective Progress Note Date: 10/26/22 Principal diagnosis: Diarrhea Patient is a 72-year-old female with a past medical history significant for hypertension COPD CVA TIA history of breast cancer status postlu mpectomy IBS patient did have a COVID-19 infection on 09/21/2022 and the patient has been given a 5-day course of remdesivir patient mentioned he started having diarrhea on 10/03/2022, patient did have CT of abdominal pelvis that was negative for any colitis stool culture negative in stool for C. diff came back negative as the patient fever or white count, patient is status post colonoscopy on 10/25 that was reported negative On today's evaluation that is 10/26/2022, the patient continues to be afebrile, the patient is breathing comfortably on room air patient has some mild lower abdominal pain denies any nauseous complaining of loose stools no blood or mucus in the stool Objective - Vital Signs Vital signs: Vital Signs Temp 98.7 F 10/26/22 06:58 Pulse 75 10/26/22 06:58 Resp 16 10/26/22 06:58 BP 153/83 10/26/22 06:58 Pulse Ox 93 L 10/26/22 06:58 FiO2 Intake & Output 10/25/22 10/26/22 10/26/22 18:59 06:59 18:59 Intake Total 50 Balance 50 Intake: IV 50 Other: Voiding Method Bedside Commode # Voids 2 1 # Bowel Movements 3 - Exam GENERAL DESCRIPTION: An elderly female lying in bed in no distress RESPIRATORY SYSTEM: Unlabored breathing , decreased breath sounds at bases HEART: S1 S2 regular rate and rhythm , ABDOMEN: Soft , no tenderness EXTREMITIES: No edema feet - Labs CBC & Chem 7: 10/25/22 06:39 10/26/22 06:41 Labs: Abnormal Lab Results - Last 24 Hours (Table) 10/26/22 Range/Units 06:41 Chloride 108 H (98-107) mmol/L BUN 3 L (7-17) mg/dL Assessment and Plan (1) Diarrhea Current Visit: Yes Status: Acute Code(s): R19.7 - DIARRHEA, UNSPECIFIED SNOMED Code(s): 34250118 Plan: 1patient is in the hospital with diarrhea apparently has been going on for about 3 weeks in this patient with a recent diagnosis of COVID-19 and has received remdesivir no antibiotic therapy patient is afebrile white count is normal CT abdominal pelvis did not mention any evidence of colitis clinic suspicion is low for infectious etiology for her diarrhea though not entirely excluded, we will check inflammatory markers 2- patient did have abnormal CT with a right lobe consolidation however the patient do not have respiratory symptoms clinic suspicion is low for pneumonia 3-stools for C. difficile came back negative, stool culture has been negative a s well, patient colonoscopy reportedly normal per surgery with a question of possible microscopic colitis as the patient previously did have a history of similar episode about 5 years ago that responded to budesonide discussed with the admitting team we will consider steroids and see clinical response Multiple family members at the bedside questions were answered Time with Patient: Less than 30
--- NOTE | 2022-10-26 15:16 | P.PN ---
Subjective Progress Note Date: 10/26/22 CHIEF COMPLAINT: Diarrhea HISTORY OF PRESENT ILLNESS: Patient reports that the left lower quadrant abdomi nal pain has improved after the norco. She does still report diarrhea. Per nursing staff stools more soft. She denies any nausea or vomiting. She tolerated regular diet. Afebrile. Medicine service is planning discharge possibly tomorrow. Patient status post colonoscopy with possible proctitis. Biopsies were obtained. Medicine service has added prednisone. PHYSICAL EXAM: VITAL SIGNS: Reviewed. GENERAL: Well-developed in no acute distress. HEENT: No sclera icterus. Extraocular movements grossly intact. Moist buccal mucosa. Head is atraumatic, normocephalic. ABDOMEN: Soft. Nondistended. Mild tenderness left lower quadrant NEUROLOGIC: Alert and oriented. Cranial nerves II through XII grossly intact. ASSESSMENT: 1. Diarrhea 2. Left lower quadrant abdominal pain 3. Status post colonoscopy with possible proctitis PLAN: -Patient can be discharged from surgical standpoint when medically cleared -Continue regular diet -Monitor patient on prednisone -Continue antidiarrheals -Recommend follow-up with GI service outpatient Physician Manager Traffic note has been reviewed by physician. Signing provider agrees with the documented findings, assessment, and plan of care. Objective - Vital Signs Vital signs: Vital Signs Temp 98.7 F 10/26/22 06:58 Pulse 75 10/26/22 06:58 Resp 16 10/26/22 06:58 BP 153/83 10/26/22 06:58 Pulse Ox 93 L 10/26/22 06:58 FiO2 Intake & Output 10/25/22 10/26/22 10/26/22 18:59 06:59 18:59 Intake Total 50 Balance 50 Intake: IV 50 Other: Voiding Method Bedside Commode # Voids 2 1 # Bowel Movements 3 - Labs CBC & Chem 7: 10/25/22 06:39 10/26/22 06:41 Labs: Abnormal Lab Results - Last 24 Hours (Table) 10/26/22 Range/Units 06:41 Chloride 108 H (98-107) mmol/L BUN 3 L (7-17) mg/dL
[2022-10-26] MEDS ORDERED: FAMOTIDINE 20 MG/2 ML VIAL IV SCH (21:00)
[2022-10-26] MEDS: ASPIRIN 81 MG PO SCH (21:04)
[2022-10-26] MEDS: VITAMIN E (DL,TOCOPHERYL ACET) 400 UNIT (180 MG) CAP PO SCH (21:04)
[2022-10-26] MEDS: ATORVASTATIN 20 MG TAB PO SCH (21:04)
[2022-10-26] MEDS: DULoxetine HCL 60 MG CAPSULE.DR PO SCH (21:04)
[2022-10-27 07:34] LABS: Magnesium 1.9 mg/dL (1.6-2.3)
[2022-10-27] MEDS: SYMBICORT 80-4.5 MCG INHALER INHALATION SCH (07:44)
[2022-10-27 07:56] VITALS: BP 133/80; PULSE 71; TEMP 98.2
[2022-10-27] MEDS: LOSARTAN 25 MG TAB PO SCH (08:46)
[2022-10-27] MEDS: CYANOCOBALAMIN 500 MCG TAB PO SCH (08:46)
[2022-10-27] MEDS: METOPROLOL TARTRATE 50 MG TAB PO SCH (08:46)
[2022-10-27] MEDS: HEPARIN SODIUM,PORCINE/PF 5,000 UNIT/0.5 ML SYRINGE SQ SCH (08:46)
[2022-10-27] MEDS: predniSONE 20 MG TAB PO SCH (08:46)
[2022-10-27] MEDS: PYRIDOXINE 50 MG TAB PO SCH (08:46)
[2022-10-27] MEDS: CARBIDOPA-LEVODOPA 25-100 MG 1 EACH TAB PO SCH (08:46)
--- NOTE | 2022-10-27 13:18 | P.PN ---
Subjective Progress Note Date: 10/27/22 CHIEF COMPLAINT: Diarrhea HISTORY OF PRESENT ILLNESS: Patient is feeling better. She is tolerating diet. She is having less bowel movements. Medicine service is planning discharge today and discharged with Entocort EC. Afebrile. WBC 8.0H be 14.7 potassium 4.0 magnesium 1.9 PHYSICAL EXAM: VITAL SIGNS: Reviewed. GENERAL: Well-developed in no acute distress. HEENT: No sclera icterus. Extraocular movements grossly intact. Moist buccal mucosa. Head is atraumatic, normocephalic. ABDOMEN: Soft. Nondistended. NEUROLOGIC: Alert and oriented. Cranial nerves II through XII grossly intact. ASSESSMENT: 1. Diarrhea 2. Left lower quadrant abdominal pain improved 3. Status post colonoscopy with possible proctitis PLAN: -Patient can be discharged from surgical standpoint when medically cleared -Follow outpatient with Dr. Castaneda -Continue regular diet -Continue antidiarrheals -Continue Entocort -Follow up path results outpatient -Recommend follow-up with GI service outpatient Physician Beamer Hand note has been reviewed by physician. Signing provider agrees with the documented findings, assessment, and plan of care. Objective - Vital Signs Vital signs: Vital Signs Temp 98.2 F 10/27/22 06:55 Pulse 71 10/27/22 06:55 Resp 16 10/27/22 06:55 BP 133/80 10/27/22 06:55 Pulse Ox 95 10/27/22 06:55 FiO2 Intake & Output 10/26/22 10/27/22 10/27/22 18:59 06:59 18:59 Other: Voiding Method Bedside Commode Diaper # Voids 1 # Bowel Movements 2 1 - Labs CBC & Chem 7: 10/25/22 06:39 10/27/22 07:00
== END 2022-10-27 10:58 | disposition home health service (06) | DRG 395 ==
LOC: EC 14:57 → 4SSUR 23:26 → INTOOBSV 23:26 → 4SSUR 10-19 00:12 → OBSVTOIN 10-25 09:51
PROVIDERS: ADMIT Internal Medicine; ATTEND Internal Medicine
DX: K62.89 Other specified diseases of anus and rectum (principal); K58.0 Irritable bowel syndrome with diarrhea; E83.52 Hypercalcemia; E86.0 Dehydration; E87.6 Hypokalemia; K90.0 Celiac disease; F32.A Depression, unspecified; F41.9 Anxiety disorder, unspecified; I10 Essential (primary) hypertension; I25.2 Old myocardial infarction; Z86.16 Personal history of COVID-19; I71.40 Abdominal aortic aneurysm, without rupture, unspecified; K58.9 Irritable bowel syndrome, unspecified; Z86.010 Personal history of colon polyps; Z79.52 Long term (current) use of systemic steroids; Z79.899 Other long term (current) drug therapy; Z80.3 Family history of malignant neoplasm of breast; Z85.3 Personal history of malignant neoplasm of breast; Z85.828 Personal history of other malignant neoplasm of skin; Z86.73 Personal history of transient ischemic attack (TIA), and cerebral infarction without residual deficits; Z82.3 Family history of stroke; Z87.891 Personal history of nicotine dependence; Z92.21 Personal history of antineoplastic chemotherapy; Z92.3 Personal history of irradiation; Z88.1 Allergy status to other antibiotic agents; Z88.2 Allergy status to sulfonamides; Z71.3 Dietary counseling and surveillance; R63.4 Abnormal weight loss; Z68.20 Body mass index [BMI] 20.0-20.9, adult
CPT/HCPCS: 45380; 71046; 74176; 80048; 80053; 81001; 82150; 82272; 83605; 83630; 83690; 83735; 83993; 84132; 84145; 85025; 85027; 86140; 87045; 87046; 87324; 88305; 94640; 96360; 96361; 99285

== ENCOUNTER 2023-04-08 15:46 | Emergency (ER) | payer MEDICARE ==
[2023-04-08] MEDS ORDERED: SODIUM CHLORIDE 0.9% 1,000 ML IV ONE ×2 (16:32→18:21)
--- NOTE | 2023-04-08 17:31 | ED ---
General Adult HPI - General Chief complaint: Abdominal Pain Stated complaint: Abd Pain Time Seen by Provider: 04/08/23 16:16 Source: patient, RN notes reviewed Mode of arrival: ambulatory Limitations: no limitations - History of Present Illness Initial comments: 72-year-old female with past medical history significant for COPD, CVA, hypertension, renal disease presents to the emergency department with a chief complaint of diarrhea. Patient reports persistent diarrhea for the last 10 days. She reports that her symptoms developed shortly after she received the Covid booster vaccine. She denies any recent sick contacts. Denies any recent travel. She did have a course of antibiotics approximately 1 month ago. She was seen and evaluated in the patient with similar symptoms that she was diagnosed with enteritis. She reports no improvement of symptoms. Denies fever, chills, nausea, vomiting, abdominal pain, melena, hematochezia. - Related Data Home Medications Medication Instructions Recorded Confirmed Calcium Carbonate [Calcium] 300 mg PO DAILY 08/26/21 04/08/23 Cholecalciferol [Vitamin D3 (10 10 mcg PO HS 08/26/21 04/08/23 Mcg = 400 Iu)] Cyanocobalamin (Vitamin B-12) 1,000 mcg PO DAILY 08/26/21 04/08/23 [Vitamin B-12] DULoxetine HCL [Cymbalta] 60 mg PO HS 08/26/21 04/08/23 Fluticasone Propion/Salmeterol 1 puff INHALATION RT-BID 08/26/21 04/08/23 [Advair 250-50 Diskus] Metoprolol Tartrate [Lopressor] 50 mg PO BID 08/26/21 04/08/23 Pyridoxine HCl (Vitamin B6) 100 mg PO DAILY 08/26/21 04/08/23 [Vitamin B-6] Rosuvastatin [Crestor] 10 mg PO HS 08/26/21 04/08/23 Vitamin E (Dl,Tocopheryl Acet) 400 unit PO HS 08/26/21 04/08/23 [Vitamin E (400 Iu = 180 mg)] Aspirin EC [Ecotrin Low Dose] 81 mg PO HS 10/18/22 04/08/23 Carbidopa-Levodopa 25-100 mg 1 tab PO PC-TID 10/18/22 04/08/23 [Sinemet 25-100 mg] Losartan [Cozaar] 12.5 mg PO DAILY 10/18/22 04/08/23 Budesonide [Entocort EC] 9 mg PO TID 04/08/23 04/08/23 Donepezil [Aricept] 5 mg PO DAILY 04/08/23 04/08/23 Memantine [Namenda] 10 mg PO BID 04/08/23 04/08/23 Mesalamine [Mesalamine ER] 1.5 gm PO DAILY@1200 04/08/23 04/08/23 Ondansetron [Zofran] 4 mg PO Q6H PRN 04/08/23 04/08/23 Previous Rx's Medication Instructions Recorded Loperamide [Imodium] 2 mg PO QID PRN 5 Days #20 cap 10/27/22 Ciprofloxacin HCl [Cipro] 500 mg PO Q12HR #14 tablet 04/08/23 Allergies Allergy/AdvReac Type Severity Reaction Status Date / Time Cephalosporins Allergy Anaphylaxis Verified 04/08/23 19:30 Sulfa (Sulfonamide Allergy Rash/Hives Verified 04/08/23 19:30 Antibiotics) Review of Systems ROS Statement: Those systems with pertinent positive or pertinent negative responses have been documented in the HPI. ROS Other: All systems not noted in ROS Statement are negative. Past Medical History Past Medical History: Cancer, COPD, CVA/TIA, Hypertension, Memory Impairment, Myocardial Infarction (VT), Neurologic Disorder, Renal Disease, Syncope, Vascular Disorder Additional Past Medical History / Comment(s): Beginnings of memory problems, 2012 breast cancer/lumpectomy/chemo/radiation, lumbar compression fractures, TTT/neurocardiogenic syncopies, cardiac valve disease, nuclear stress test indicated VT at some time, PVCs, cat scan showed old areas infarct, small AAA/aortic plaque/thrombus, caratid artery disease, severe COPD, "kidney issues", benign colon polyp, colitis or IBS, possible celiac's disease, basal cell skin cancer removed, osteoporosis with reclast infusion, Last Myocardial Infarction Date:: unkn History of Any Multi-Drug Resistant Organisms: None Reported Past Surgical History: Back Surgery, Breast Surgery, Hysterectomy, Orthopedic Surgery Additional Past Surgical History / Comment(s): Breast biopsy/lumpectomy, lumbar kyphoplasty/kenolog injections, depo medrol injections in lower back, loop recorder, colonoscopy/polypectomy, skin cancer removed from scalp Past Anesthesia/Blood Transfusion Reactions: No Reported Reaction Past Psychological History: Anxiety, Depression Smoking Status: Former smoker Past Alcohol Use History: None Reported Past Drug Use History: None Reported - Past Family History Father Family Medical History: CVA/TIA Mother Family Medical History: Cancer Additional Family Medical History / Comment(s): Breast cancer. General Exam - General Exam Comments Initial Comments: General: Alert, in no acute distress Head: atraumatic normocephalic. Eyes PERRL, EOMI intact, mucous membranes moist Respiratory: Lungs clear to auscultation bilaterally Cardiovascular: Heart rate regular rate and rhythm Abdominal: Soft without guarding or rebound Extremities: Normal inspection with full range of motion and normal capillary refill Neuroogic: alert and oriented 3, CN II-XII intact, able to ambulate with steady gait Skin: warm dry and intact with normal color Limitations: no limitations Course Vital Signs 04/08/23 04/08/23 04/08/23 15:47 17:46 19:12 Temperature 98.7 F 98.6 F Pulse Rate 77 80 Respiratory 16 18 Rate Blood Pressure 158/85 169/93 O2 Sat by Pulse 97 95 Oximetry 04/08/23 04/08/23 20:42 21:43 Temperature 98.7 F Pulse Rate 84 74 Respiratory 16 16 Rate Blood Pressure 176/87 171/98 O2 Sat by Pulse 97 98 Oximetry - Reevaluation(s) Reevaluation #1: 04/08/23 19:12 Patient reevaluated. Patient reports she feels better status post fluids. Patient aware need for urinalysis. 04/08/23 20:45 patient reevaluated. Patient complaining of chest tightness. EKG interpreted ordered. Reevaluation #2: 04/08/23 21:22 Should reevaluated. Patient agreeable with the plan for discharge. Medical Decision Making - Medical Decision Making Was pt. sent in by a medical professional or institution (, PA, TRACTOR DRILL OPERATOR, urgent care, hospital, or shelter...) When possible be specific @ -[No] Did you speak to anyone other than the patient for history (EMS, parent, family, police, friend...)? What history was obtained from this source @ - Did you review nursing and triage notes (agree or disagree)? Why? @ -[I reviewed and agree with nursing and triage notes] Were old charts reviewed (outside hosp., previous admission, EMS record, old EKG, old radiological studies, urgent care reports/EKG's, shelter records)? Report findings @ -[No old charts were reviewed] Differential Diagnosis (chest pain, altered mental status, abdominal pain women, abdominal pain men, vaginal bleeding, weakness, fever, dyspnea, syncope, headache, dizziness, GI bleed, back pain, seizure, CVA, palpatations, mental health, musculoskeletal)? @ -[not applicable] EKG interpreted by me (3pts min.). @ -[As above] X-rays interpreted by me (1pt min.). @ -[None done] CT interpreted by me (1pt min.). @ -[None done] U/S interpreted by me (1pt. min.). @ -[None done] What testing was considered but not performed or refused? (CT, X-rays, U/S, labs)? Why? @ -[None] What meds were considered but not given or refused? Why? @ -[None] Did you discuss the management of the patient with other professionals (professionals i.e. , PA, TRACTOR DRILL OPERATOR, lab, RT, psych nurse, social work instructor, fiber optic assembler, teacher, boating safety officer, mattress spring encaser)? Give summary @ -[No] Was smoking cessation discussed for >3mins.? @ -[No] Was critical care preformed (if so, how long)? @ -[No] Were there social determinants of health that impacted care today? How? (Homelessness, low income, unemployed, alcoholism, drug addiction, transportation, low edu. Level, literacy, decrease access to med. care, half-way, rehab)? @ -[No] Was there de-escalation of care discussed even if they declined (Discuss DNR or withdrawal of care, Hospice)? DNR status @ -[No] What co-morbidities impacted this encounter? (DM, HTN, Smoking, COPD, CAD, Cancer, CVA, ARF, Chemo, Hep., AIDS, mental health diagnosis, sleep apnea, morbid obesity)? @ -[None] Was patient admitted / discharged? Hospital course, mention meds given and route, prescriptions, significant lab abnormalities, going to OR and other pertinent info. @ Discharge. This is a 72-year-old female who presents the emergency department with diarrhea.. Patient had a thorough history and physical exam performed while in the ED. Physical exam essentially unremarkable. Heart rate regular rate and rhythm, lungs clear to auscultation bilaterally abdomen soft and nontender. Patient laboratory and imaging studies which revealed unremarkable, including unremarkable EKG and negative troponin. Discussed results in detail with the patient verbalized understanding and all questions were addressed. Patient provided 1 L IV fluids with symptomatic improvement in the ED.. Patient discharged in stable condition with return parameters discussed. Patient discharged in stable condition. Case is discussed with Dr. Vail Ryland who agrees with plan of care Undiagnosed new problem with uncertain prognosis? @ -[No] Drug Therapy requiring intensive monitoring for toxicity (Heparin, Nitro, Insulin, Cardizem)? @ -[No] Were any procedures done? @ -[No] Diagnosis/symptom? @ -Diarrhea Acute, or Chronic, or Acute on Chronic? @ -Acute Uncomplicated (without systemic symptoms) or Complicated (systemic symptoms)? @ -Uncomplicated Side effects of treatment? @ -[No] Exacerbation, Progression, or Severe Exacerbation? @ -[No] Poses a threat to life or bodily function? How? (Chest pain, USA, VT, pneumonia, PE, COPD, DKA, ARF, appy, cholecystitis, CVA, Diverticulitis, Homicidal, Suicidal, threat to staff... and all critical care pts) @ -Low likelihood - Lab Data Result diagrams: 04/08/23 16:37 04/08/23 16:37 Lab Results 04/08/23 04/08/23 04/08/23 Range/Units 16:37 16:37 16:37 WBC 9.0 (3.8-10.6) k/uL RBC 5.03 (3.80-5.40) m/uL Hgb 15.3 (11.4-16.0) gm/dL Hct 46.4 H (34.0-46.0) % MCV 92.3 (80.0-100.0) fL MCH 30.3 (25.0-35.0) pg MCHC 32.9 (31.0-37.0) g/dL RDW 13.9 (11.5-15.5) % Plt Count 296 (150-450) k/uL MPV 8.4 Neutrophils % 77 % Lymphocytes % 11 % Monocytes % 8 % Eosinophils % 1 % Basophils % 1 % Neutrophils # 7.0 (1.3-7.7) k/uL Lymphocytes # 1.0 (1.0-4.8) k/uL Monocytes # 0.7 (0-1.0) k/uL Eosinophils # 0.1 (0-0.7) k/uL Basophils # 0.1 (0-0.2) k/uL PT 11.7 (10.0-12.5) sec INR 1.1 (<1.2) APTT 22.8 (22.0-30.0) sec Sodium (137-145) mmol/L Potassium (3.5-5.1) mmol/L Chloride (98-107) mmol/L Carbon Dioxide (22-30) mmol/L Anion Gap mmol/L BUN (7-17) mg/dL Creatinine (0.52-1.04) mg/dL Est GFR (CKD-EPI)AfAm (>60 ml/min/1.73 sqM) Est GFR (CKD-EPI)NonAf (>60 ml/min/1.73 sqM) Glucose (74-99) mg/dL Plasma Lactic Acid Yohan (0.7-2.0) mmol/L Calcium (8.4-10.2) mg/dL Total Bilirubin (0.2-1.3) mg/dL AST (14-36) U/L ALT (4-34) U/L Alkaline Phosphatase (38-126) U/L Troponin I (0.000-0.034) ng/mL Total Protein (6.3-8.2) g/dL Albumin (3.5-5.0) g/dL Urine Color Colorless Urine Appearance Cloudy H (Clear) Urine pH 6.0 (5.0-8.0) Ur Specific Raiford 1.004 (1.001-1.035) Urine Protein Negative (Negative) Urine Glucose (UA) Negative (Negative) Urine Ketones Negative (Negative) Urine Blood Trace H (Negative) Urine Nitrite Negative (Negative) Urine Bilirubin Negative (Negative) Urine Urobilinogen <2.0 (<2.0) mg/dL Ur Leukocyte Esterase Large H (Negative) Urine RBC 6 H (0-5) /hpf Urine WBC 62 H (0-5) /hpf Ur Squamous Epith Cells 1 (0-4) /hpf Urine Bacteria Moderate H (None) /hpf Urine Mucus Rare H (None) /hpf Influenza Type A (PCR) (Not Detectd) Influenza Type B (PCR) (Not Detectd) RSV (PCR) (Not Detectd) SARS-CoV-2 (PCR) (Not Detectd) 04/08/23 04/08/23 04/08/23 Range/Units 16:37 16:37 16:37 WBC (3.8-10.6) k/uL RBC (3.80-5.40) m/uL Hgb (11.4-16.0) gm/dL Hct (34.0-46.0) % MCV (80.0-100.0) fL MCH (25.0-35.0) pg MCHC (31.0-37.0) g/dL RDW (11.5-15.5) % Plt Count (150-450) k/uL MPV Neutrophils % % Lymphocytes % % Monocytes % % Eosinophils % % Basophils % % Neutrophils # (1.3-7.7) k/uL Lymphocytes # (1.0-4.8) k/uL Monocytes # (0-1.0) k/uL Eosinophils # (0-0.7) k/uL Basophils # (0-0.2) k/uL PT (10.0-12.5) sec INR (<1.2) APTT (22.0-30.0) sec Sodium 134 L (137-145) mmol/L Potassium 3.9 (3.5-5.1) mmol/L Chloride 102 (98-107) mmol/L Carbon Dioxide 22 (22-30) mmol/L Anion Gap 10 mmol/L BUN 10 (7-17) mg/dL Creatinine 0.78 (0.52-1.04) mg/dL Est GFR (CKD-EPI)AfAm 87 (>60 ml/min/1.73 sqM) Est GFR (CKD-EPI)NonAf 75 (>60 ml/min/1.73 sqM) Glucose 118 H (74-99) mg/dL Plasma Lactic Acid Yohan 1.8 (0.7-2.0) mmol/L Calcium 9.7 (8.4-10.2) mg/dL Total Bilirubin 0.7 (0.2-1.3) mg/dL AST 41 H (14-36) U/L ALT 20 (4-34) U/L Alkaline Phosphatase 36 L (38-126) U/L Troponin I (0.000-0.034) ng/mL Total Protein 6.2 L (6.3-8.2) g/dL Albumin 3.2 L (3.5-5.0) g/dL Urine Color Urine Appearance (Clear) Urine pH (5.0-8.0) Ur Specific Raiford (1.001-1.035) Urine Protein (Negative) Urine Glucose (UA) (Negative) Urine Ketones (Negative) Urine Blood (Negative) Urine Nitrite (Negative) Urine Bilirubin (Negative) Urine Urobilinogen (<2.0) mg/dL Ur Leukocyte Esterase (Negative) Urine RBC (0-5) /hpf Urine WBC (0-5) /hpf Ur Squamous Epith Cells (0-4) /hpf Urine Bacteria (None) /hpf Urine Mucus (None) /hpf Influenza Type A (PCR) Not Detected (Not Detectd) Influenza Type B (PCR) Not Detected (Not Detectd) RSV (PCR) Not Detected (Not Detectd) SARS-CoV-2 (PCR) Not Detected (Not Detectd) 04/08/23 Range/Units 20:14 WBC (3.8-10.6) k/uL RBC (3.80-5.40) m/uL Hgb (11.4-16.0) gm/dL Hct (34.0-46.0) % MCV (80.0-100.0) fL MCH (25.0-35.0) pg MCHC (31.0-37.0) g/dL RDW (11.5-15.5) % Plt Count (150-450) k/uL MPV Neutrophils % % Lymphocytes % % Monocytes % % Eosinophils % % Basophils % % Neutrophils # (1.3-7.7) k/uL Lymphocytes # (1.0-4.8) k/uL Monocytes # (0-1.0) k/uL Eosinophils # (0-0.7) k/uL Basophils # (0-0.2) k/uL PT (10.0-12.5) sec INR (<1.2) APTT (22.0-30.0) sec Sodium (137-145) mmol/L Potassium (3.5-5.1) mmol/L Chloride (98-107) mmol/L Carbon Dioxide (22-30) mmol/L Anion Gap mmol/L BUN (7-17) mg/dL Creatinine (0.52-1.04) mg/dL Est GFR (CKD-EPI)AfAm (>60 ml/min/1.73 sqM) Est GFR (CKD-EPI)NonAf (>60 ml/min/1.73 sqM) Glucose (74-99) mg/dL Plasma Lactic Acid Yohan (0.7-2.0) mmol/L Calcium (8.4-10.2) mg/dL Total Bilirubin (0.2-1.3) mg/dL AST (14-36) U/L ALT (4-34) U/L Alkaline Phosphatase (38-126) U/L Troponin I <0.012 (0.000-0.034) ng/mL Total Protein (6.3-8.2) g/dL Albumin (3.5-5.0) g/dL Urine Color Urine Appearance (Clear) Urine pH (5.0-8.0) Ur Specific Ra[place]ord (1.001-1.035) Urine Protein (Negative) Urine Glucose (UA) (Negative) Urine Ketones (Negative) Urine Blood (Negative) Urine Nitrite (Negative) Urine Bilirubin (Negative) Urine Urobilinogen (<2.0) mg/dL Ur Leukocyte Esterase (Negative) Urine RBC (0-5) /hpf Urine WBC (0-5) /hpf Ur Squamous Epith Cells (0-4) /hpf Urine Bacteria (None) /hpf Urine Mucus (None) /hpf Influenza Type A (PCR) (Not Detectd) Influenza Type B (PCR) (Not Detectd) RSV (PCR) (Not Detectd) SARS-CoV-2 (PCR) (Not Detectd) Disposition Clinical Impression: Diarrhea Disposition: HOME SELF-CARE Condition: Stable Instructions (If sedation given, give patient instructions): Dehydration (DC), Gastroenteritis (ED), Acute Diarrhea (ED), Chronic Diarrhea (ED) Additional Instructions: Please take antibiotic as prescribed Please see small frequent meals consisting of bananas rice applesauce and toast Please return to the nearest emergency department if worsening symptoms. Prescriptions: Ciprofloxacin HCl [Cipro] 500 mg PO Q12HR #14 tablet Is patient prescribed a controlled substance at d/c from ED?: No Referrals: Sanchez Edwards DO [Primary Care Provider] - 1-2 days Time of Disposition: 21:23
[2023-04-08 17:32] LABS: ALT 20 U/L (4-34); AST 41 U/L (14-36); African American GFR (CKD) 87 (>60 ml/min/1.73 sqM); Albumin 3.2 g/dL (3.5-5.0); Alkaline Phosphatase 36 U/L (38-126); Anion Gap 10 mmol/L; Blood Urea Nitrogen 10 mg/dL (7-17); Calcium 9.7 mg/dL (8.4-10.2); Carbon Dioxide 22 mmol/L (22-30); Chloride 102 mmol/L (98-107); Glucose 118 mg/dL (74-99); Non-African American GFR(CKD) 75 (>60 ml/min/1.73 sqM); Potassium 3.9 mmol/L (3.5-5.1); Sodium 134 mmol/L (137-145); Total Bilirubin 0.7 mg/dL (0.2-1.3); Total Protein 6.2 g/dL (6.3-8.2)
[2023-04-08 17:38] LABS: INR 1.1 (<1.2); Partial Thromboplastin Time 22.8 sec (22.0-30.0); Prothrombin Time 11.7 sec (10.0-12.5)
[2023-04-08 17:48] LABS: Basophils # (A) 0.1 k/uL (0-0.2); Basophils % (A) 1 %; Eosinophils # (A) 0.1 k/uL (0-0.7); Eosinophils % (A) 1 %; HCT 46.4 % (34.0-46.0); HGB 15.3 gm/dL (11.4-16.0); Lymphocytes % (A) 11 %; MCH 30.3 pg (25.0-35.0); MCHC 32.9 g/dL (31.0-37.0); MCV 92.3 fL (80.0-100.0); Mean Platelet Volume 8.4; Monocytes # (A) 0.7 k/uL (0-1.0); Monocytes % (A) 8 %; Neutrophils % (A) 77 %; Platelet Count 296 k/uL (150-450); RBC 5.03 m/uL (3.80-5.40); RDW 13.9 % (11.5-15.5)
[2023-04-08 20:41] LABS: Appearance,Urine Cloudy (Clear); Bacteria,Urine Moderate /hpf; Bilirubin,Urine Negative (Negative); Blood,Urine Trace (Negative); Color,Urine Colorless; Glucose,Urine (UA) Negative (Negative); Ketones,Urine Negative (Negative); Leukocyte Esterase,Urine Large (Negative); Mucus,Urine Rare /hpf; Nitrite,Urine Negative (Negative); Protein,Urine Negative (Negative); RBC,Urine 6 /hpf (0-5); Specific Gravity,Urine 1.004 (1.001-1.035); Squamous Epithelial Cell,Urine 1 /hpf (0-4); Urobilinogen,Urine <2.0 mg/dL (<2.0); WBC,Urine 62 /hpf (0-5)
[2023-04-08 20:56] VITALS: RESP 16
[2023-04-08] MEDS ORDERED: CIPROFLOXACIN HCL 500 MG TAB PO STA (21:27)
[2023-04-08 22:09] VITALS: BP 171/98; PULSE 74; TEMP 98.7
== END 2023-04-08 21:45 | disposition home or self-care (01) ==
LOC: EC 15:46
DX: R19.7 Diarrhea, unspecified (principal); I10 Essential (primary) hypertension; I25.2 Old myocardial infarction; J44.9 Chronic obstructive pulmonary disease, unspecified; F41.9 Anxiety disorder, unspecified; F32.A Depression, unspecified; Z20.822 Contact with and (suspected) exposure to COVID-19; Z87.891 Personal history of nicotine dependence; Z79.899 Other long term (current) drug therapy; Z79.51 Long term (current) use of inhaled steroids; Z88.2 Allergy status to sulfonamides; Z88.1 Allergy status to other antibiotic agents
CPT/HCPCS: 36415; 80053; 81001; 83605; 84484; 85025; 85610; 85730; 87045; 87046; 87636; 93005; 96360; 96361; 99284

== ENCOUNTER 2024-09-23 10:56 | Observation (INO) | payer MEDICARE ==
[2024-09-23] MEDS: SODIUM CHLORIDE 0.9% 1,000 ML IV ONE (11:28)
[2024-09-23] MEDS: methylPREDNISolone SOD SUCCI 125 MG/2 ML VIAL IV STA (11:29)
[2024-09-23 11:35] LABS: Basophils # (A) 0.04 10*3/uL (0.00-0.10); Basophils % (A) 0.3 %; Eosinophils # (A) 0.08 10*3/uL (0.04-0.35); Eosinophils % (A) 0.6 %; HCT 41.4 % (37.2-46.3); HGB 13.3 g/dL (12.0-15.0); Lymphocytes % (A) 10.2 %; MCH 30.1 pg (27.0-32.0); MCHC 32.1 g/dL (32.0-37.0); MCV 93.7 fL (80.0-97.0); Mean Platelet Volume 9.7 fL (9.5-12.2); Monocytes # (A) 1.12 10*3/uL (0.20-1.00); Monocytes % (A) 8.8 %; Neutrophils # (A) 10.19 10*3/uL (1.80-7.70); Neutrophils % (A) 79.6 %; Platelet Count 195 10*3/uL (140-440); RBC 4.42 10*6/uL (4.10-5.20); RDW 14.7 % (11.5-14.5)
--- NOTE | 2024-09-23 12:00 | XR ---
EXAMINATION TYPE: XR chest 2V DATE OF EXAM: 09/23/2024 11:42 AM COMPARISON: 10/18/2022 CLINICAL INDICATION: Female, 74 years old with history of Weakness: Shortness of breath TECHNIQUE: XR chest 2V views of the chest are obtained. FINDINGS: Scattered senescent parenchymal changes noted. Hyperinflation compatible with COPD. No evidence for infiltrate. No evidence for atelectasis. Heart size is stable. Mediastinal structures are stable and grossly unremarkable. No evidence for hilar prominence. Degenerative changes dorsal spine. IMPRESSION: 1. No evidence for acute pulmonary disease. [facility], , 09/23/2024 11:57 AM
[2024-09-23 12:04] LABS: ALT 10 U/L (4-34); African American GFR (CKD) 62 (>60 ml/min/1.73 sqM); Anion Gap 10 mmol/L; Blood Urea Nitrogen 21 mg/dL (7-17); Calcium 9.4 mg/dL (8.4-10.2); Carbon Dioxide 20 mmol/L (22-30); Chloride 105 mmol/L (98-107); Glucose 117 mg/dL (74-99); Non-African American GFR(CKD) 54 (>60 ml/min/1.73 sqM); Partial Thromboplastin Time 22.1 sec (22.0-30.0); Prothrombin Time 10.9 sec (10.0-12.5); Sodium 135 mmol/L (137-145)
[2024-09-23 12:12] LABS: NT-Pro-B-Type Natriuretic Pept 1880 pg/mL
[2024-09-23 12:13] LABS: Influenza A Not Detected (Not Detectd); Influenza B Not Detected (Not Detectd); RSV Not Detected (Not Detectd)
[2024-09-23 12:33] LABS: Potassium 5.2 mmol/L (3.5-5.1)
[2024-09-23 12:34] LABS: AST 46 U/L (14-36); Albumin 3.6 g/dL (3.5-5.0); Alkaline Phosphatase 29 U/L (38-126); Magnesium 2.1 mg/dL (1.6-2.3); Total Bilirubin 1.2 mg/dL (0.2-1.3); Total Protein 6.4 g/dL (6.3-8.2)
[2024-09-23] MEDS: IPRATROPIUM-ALBUTEROL 3 ML NEB INHALATION STA (12:47)
[2024-09-23] MEDS ORDERED: PNEUMONIA PROTOCOL UTILIZED 1 EACH MISC PO PRN (12:52)
[2024-09-23] MEDS ORDERED: IPRATROPIUM-ALBUTEROL 3 ML NEB INHALATION PRN (12:54)
[2024-09-23] MEDS: LACTATED RINGERS 500 ML IV ONE (13:37)
[2024-09-23] MEDS: LACTATED RINGERS 1,000 ML IV SCH (13:38)
[2024-09-23] MEDS ORDERED: NALOXONE 0.4 MG/ML 1 ML VIAL IV PRN (13:43)
[2024-09-23] MEDS ORDERED: ACETAMINOPHEN TAB 325 MG TAB PO PRN (13:43)
[2024-09-23] MEDS ORDERED: ONDANSETRON 4 MG/2 ML VIAL IVP PRN (13:43)
--- NOTE | 2024-09-23 13:48 | ED ---
General Adult HPI - General Chief complaint: Weakness Stated complaint: Weakness,Congestion Time Seen by Provider: 09/23/24 13:40 Source: patient, RN notes reviewed, old records reviewed Limitations: no limitations - History of Present Illness Initial comments: Patient is a 74-year-old female presents emergency department complaining of weakness, worsening cough. Has a history of COPD. Typically not on home oxygen. Also has a history of hypertension, renal disease. Also history of CAD. States she has been feeling more weak over the last few days with some dec reased oral intake. No fevers. Nonproductive cough however states that it feels congested on her chest. Some mild nasal congestion as well. No fevers. Denies any nausea or vomiting or diarrhea. Was found to be hypotensive in triage and was placed in trauma bay 1 for further evaluation.Denies history of CHF. Denies orthopnea, PND, lower extremity edema. - Related Data Home Medications Medication Instructions Recorded Confirmed DULoxetine HCL [Cymbalta] 60 mg PO HS 08/26/21 09/23/24 Metoprolol Tartrate [Lopressor] 25 mg PO BID 08/26/21 09/23/24 Rosuvastatin [Crestor] 10 mg PO HS 08/26/21 09/23/24 Aspirin EC [Ecotrin Low Dose] 81 mg PO HS 10/18/22 09/23/24 Carbidopa-Levodopa 25-100 mg 1 tab PO PC-TID 10/18/22 09/23/24 [Sinemet 25-100 mg] Donepezil [Aricept] 5 mg PO DAILY 04/08/23 09/23/24 Memantine [Namenda] 10 mg PO BID 04/08/23 09/23/24 Mesalamine [Mesalamine ER] 1.5 gm PO DAILY@1400 04/08/23 09/23/24 Budesonide/Formoterol Fumarate 2 puff INHALATION RT-BID 09/23/24 09/23/24 [Symbicort 160-4.5 Mcg Inhaler] Famotidine [Pepcid] 20 mg PO BID 09/23/24 09/23/24 Ketorolac [Toradol] 10 mg PO Q8H PRN 09/23/24 09/23/24 Lidocaine 5% Oint [Xylocaine 5% 1 applic TOPICAL BID PRN 09/23/24 09/23/24 Oint] Midodrine [ProAmatine] 5 mg PO DAILY PRN 09/23/24 09/23/24 Multivit-Min/Iron/Folic/Lutein 1 tab PO DAILY 09/23/24 09/23/24 [Centrum Silver Women Tablet] Allergies Allergy/AdvReac Type Severity Reaction Status Date / Time Cephalosporins Allergy Anaphylaxis Verified 09/23/24 12:03 Sulfa (Sulfonamide Allergy Rash/Hives Verified 09/23/24 12:03 Antibiotics) Review of Systems ROS Statement: Those systems with pertinent positive or pertinent negative responses have been documented in the HPI. Review of Systems: CONST: Denies fever EYES: Denies blurry vision ENT: Endorses nasal congestion C/V: Denies Chest pain RESP: Endorses cough, shortness of breath GI: Denies abdominal pain : Denies dysuria SKIN: Denies rash. MSK: Denies joint pain. NEURO: Denies headache ROS Other: All systems not noted in ROS Statement are negative. Past Medical History Past Medical History: Cancer, COPD, CVA/TIA, Hypertension, Memory Impairment, Myocardial Infarction (RI), Neurologic Disorder, Renal Disease, Syncope, Vascular Disorder Additional Past Medical History / Comment(s): Beginnings of memory problems, 2012 breast cancer/lumpectomy/chemo/radiation, lumbar compression fractures, TTT/neurocardiogenic syncopies, cardiac valve disease, nuclear stress test indicated RI at some time, PVCs, cat scan showed old areas infarct, small AAA/aortic plaque/thrombus, caratid artery disease, severe COPD, "kidney i ssues", benign colon polyp, colitis or IBS, possible celiac's disease, basal cell skin cancer removed, osteoporosis with reclast infusion, Last Myocardial Infarction Date:: unkn History of Any Multi-Drug Resistant Organisms: None Reported Past Surgical History: Back Surgery, Breast Surgery, Hysterectomy, Orthopedic Surgery Additional Past Surgical History / Comment(s): Breast biopsy/lumpectomy, lumbar kyphoplasty/kenolog injections, depo medrol injections in lower back, loop recorder, colonoscopy/polypectomy, skin cancer removed from scalp Past Anesthesia/Blood Transfusion Reactions: No Reported Reaction Past Psychological History: Anxiety, Depression Smoking Status: Former smoker Past Alcohol Use History: None Reported Past Drug Use History: None Reported - Past Family History Father Family Medical History: CVA/TIA Mother Family Medical History: Cancer Additional Family Medical History / Comment(s): Breast cancer. General Exam - General Exam Comments Initial Comments: General: Appears in no acute distress. HEAD: Normal with no signs of head trauma. EYES: PERRLA, EOMI, conjunctiva normal, no discharge. ENT: Hearing grossly intact, normal oropharynx. Dry mucous membranes RESPIRATORY: Coarse breath sounds bilaterally with wheezing. Mild hypoxia with increased work of breathing on presentation. C/V: Regular rate and rhythm. S1 and S2 auscultated, no edema, peripheral pulses 2+ and intact throughout ABD: Abd is soft, nontender, nondistended EXT: Normal range of motion, no obvious deformity SKIN: No rashes or lesions observed on exposed skin. NEURO: Alert and oriented x 4. Limitations: no limitations Course Vital Signs 09/23/24 09/23/24 09/23/24 10:57 11:05 12:13 Temperature 99.1 F 98.0 F Pulse Rate 97 92 81 Respiratory 18 22 20 Rate Blood Pressure 71/47 88/57 111/67 O2 Sat by Pulse 92 L 91 L 91 L Oximetry 09/23/24 09/23/24 09/23/24 12:47 12:59 13:38 Temperature Pulse Rate 77 78 89 Respiratory 18 18 13 Rate Blood Pressure 120/70 O2 Sat by Pulse 94 L Oximetry 09/23/24 14:00 Temperature 98.1 F Pulse Rate 86 Respiratory 18 Rate Blood Pressure 126/74 O2 Sat by Pulse 93 L Oximetry Medical Decision Making - Medical Decision Making Was pt. sent in by a medical professional or institution (, PA, USED CAR LOT ATTENDANT, urgent care, hospital, or half-way...) When possible be specific @ -No Did you speak to anyone other than the patient for history (EMS, parent, family, police, friend...)? What history was obtained from this source @ -No Did you review nursing and triage notes (agree or disagree)? Why? @ -I reviewed and agree with nursing and triage notes Were old charts reviewed (outside hosp., previous admission, EMS record, old EKG, old radiological studies, urgent care reports/EKG's, half-way records)? Report findings @ -No old charts were reviewed Differential Diagnosis (chest pain, altered mental status, abdominal pain women, abdominal pain men, vaginal bleeding, weakness, fever, dyspnea, syncope, headache, dizziness, GI bleed, back pain, seizure, CVA, palpatations, mental health, musculoskeletal)? @ -Differential Weakness: Hypoglycemia, shock, sepsis, hyponatremia, anemia, infection, RI, ETOH, adverse medicine reaction, overdose, stroke, this is not meant to be an all-inclusive list. EKG interpreted by me (3pts min.). @ -As above X-rays interpreted by me (1pt min.). @ -Chest x-ray reveals no evidence of acute cardiopulmonary process. CT interpreted by me (1pt min.). @ -None done U/S interpreted by me (1pt. min.). @ -None done What testing was considered but not performed or refused? (CT, X-rays, U/S, labs)? Why? @ -None What meds were considered but not given or refused? Why? @ -None Did you discuss the management of the patient with other professionals (professionals i.e. , PA, USED CAR LOT ATTENDANT, lab, RT, psych nurse, perinatal social worker, electroplater apprentice, teacher, chief compliance officer, caser shoe parts)? Give summary @ -Discussed with the admitting provider, Dr. Hurst who accepted the admission. Was smoking cessation discussed for >3mins.? @ -No Was critical care preformed (if so, how long)? @ -Yes, 31 minutes Were there social determinants of health that impacted care today? How? (Homelessness, low income, unemployed, alcoholism, drug addiction, transportation, low edu. Level, literacy, decrease access to med. care, snf, rehab)? @ -No Was there de-escalation of care discussed even if they declined (Discuss DNR or withdrawal of care, Hospice)? DNR status @ -No What co-morbidities impacted this encounter? (DM, HTN, Smoking, COPD, CAD, Cancer, CVA, ARF, Chemo, Hep., AIDS, mental health diagnosis, sleep apnea, morbid obesity)? @ -COPD Was patient admitted / discharged? Hospital course, mention meds given and route, prescriptions, significant lab abnormalities, going to OR and other pertinent info. @ -Patient presents with hypotension, what appears to be dehydration and weakness. Patient is wheezy as well. Patient was originally hypotensive in triage however when she got wheeled back and we repeated blood pressure, maps are adequate at 67. We will continue to closely monitor. She deficits have an increased respiratory rate of 22. Only has 1 SIRS criteria at this time. She does appear clinically dehydrated. Patient will be symptomatically treated for COPD with IV steroids, breathing treatment as well as a dose of IV fluids. Patient was in agreement this plan. Does not meet sepsis criteria at this time. EKG shows no signs of acute ischemia. Labs remarkable for mild leukocytosis of 12.8. Patient has mild hyper kalemia 5.2 likely secondary to dehydration. Lactic acid is elevated 2.4. Troponin undetectable. Viral swabs negative. Chest x-ray shows no obvious acute infectious process. On reevaluation, patient's vitals are improved but with the elevated lactic acid as well as the leukocytosis, technically does meet sepsis criteria with multiple SIRS criteria. Patient met sepsis criteria at 1250. Patient will be administered an additional 500 cc fluid bolus of lactated Ringer's and started on maintenance fluids to meet that 30 cc/kg fluid bolus criteria. Patient started on antibiotics for pneumonia, specifically Levaquin. Patient will be admitted to the hospital for pulmonology evaluation. Will continue with IV steroids as well as breathing treatments in addition to antibiotics. She was in agreement this plan. I spoke with the admitting provider, Dr. Hurst who accepted the admission. Undiagnosed new problem with uncertain prognosis? @ -No Drug Therapy requiring intensive monitoring for toxicity (Heparin, Nitro, Insulin, Cardizem)? @ -No Were any procedures done? @ -No Diagnosis/symptom? @ -Sepsis, COPD, tracheobronchitis Acute, or Chronic, or Acute on Chronic? @ -Acute Uncomplicated (without systemic symptoms) or Complicated (systemic symptoms)? @ -Complicated Side effects of treatment? @ -No Exacerbation, Progression, or Severe Exacerbation? @ -No Poses a threat to life or bodily function? How? (Chest pain, USA, RI, pneumonia, PE, COPD, DKA, ARF, appy, cholecystitis, CVA, Diverticulitis, Homicidal, Suicidal, threat to staff... and all critical care pts) @ -Yes - Lab Data Result diagrams: 09/23/24 11:21 09/23/24 11:21 Lab Results 09/23/24 09/23/24 09/23/24 Range/Units 11:21 11:21 11:21 WBC 12.80 H (4.50-10.00) 10*3/uL RBC 4.42 (4.10-5.20) 10*6/uL Hgb 13.3 (12.0-15.0) g/dL Hct 41.4 (37.2-46.3) % MCV 93.7 (80.0-97.0) fL MCH 30.1 (27.0-32.0) pg MCHC 32.1 (32.0-37.0) g/dL Plt Count 195 (140-440) 10*3/uL MPV 9.7 (9.5-12.2) fL Immature Gran % (Auto) 0.5 % Neutrophils % 79.6 % Lymphocytes % 10.2 % Monocytes % 8.8 % Eosinophils % 0.6 % Basophils % 0.3 % Immature Gran # 0.07 H (0.00-0.04) 10*3/uL Neutrophils # 10.19 H (1.80-7.70) 10*3/uL Lymphocytes # 1.30 (0.90-5.00) 10*3/uL Monocytes # 1.12 H (0.20-1.00) 10*3/uL Eosinophils # 0.08 (0.04-0.35) 10*3/uL Basophils # 0.04 (0.00-0.10) 10*3/uL PT 10.9 (10.0-12.5) sec INR 1.0 (<1.2) APTT 22.1 (22.0-30.0) sec Sodium 135 L (137-145) mmol/L Potassium 5.2 H (3.5-5.1) mmol/L Chloride 105 (98-107) mmol/L Carbon Dioxide 20 L (22-30) mmol/L Anion Gap 10 mmol/L BUN 21 H (7-17) mg/dL Creatinine 1.02 (0.52-1.04) mg/dL Est GFR (CKD-EPI)AfAm 62 (>60 ml/min/1.73 sqM) Est GFR (CKD-EPI)NonAf 54 (>60 ml/min/1.73 sqM) Glucose 117 H (74-99) mg/dL Lactic Ac Sepsis Rflx Plasma Lactic Acid Yohan (0.7-2.0) mmol/L Calcium 9.4 (8.4-10.2) mg/dL Magnesium 2.1 (1.6-2.3) mg/dL Total Bilirubin 1.2 (0.2-1.3) mg/dL AST 46 H (14-36) U/L ALT 10 (4-34) U/L Alkaline Phosphatase 29 L (38-126) U/L Troponin I (0.000-0.034) ng/mL NT-Pro-B Natriuret Pep 1880 pg/mL Total Protein 6.4 (6.3-8.2) g/dL Albumin 3.6 (3.5-5.0) g/dL Influenza Type A (PCR) (Not Detectd) Influenza Type B (PCR) (Not Detectd) RSV (PCR) (Not Detectd) SARS-CoV-2 (PCR) (Not Detectd) 09/23/24 09/23/24 09/23/24 Range/Units 11:21 11:21 11:21 WBC (4.50-10.00) 10*3/uL RBC (4.10-5.20) 10*6/uL Hgb (12.0-15.0) g/dL Hct (37.2-46.3) % MCV (80.0-97.0) fL MCH (27.0-32.0) pg MCHC (32.0-37.0) g/dL Plt Count (140-440) 10*3/uL MPV (9.5-12.2) fL Immature Gran % (Auto) % Neutrophils % % Lymphocytes % % Monocytes % % Eosinophils % % Basophils % % Immature Gran # (0.00-0.04) 10*3/uL Neutrophils # (1.80-7.70) 10*3/uL Lymphocytes # (0.90-5.00) 10*3/uL Monocytes # (0.20-1.00) 10*3/uL Eosinophils # (0.04-0.35) 10*3/uL Basophils # (0.00-0.10) 10*3/uL PT (10.0-12.5) sec INR (<1.2) APTT (22.0-30.0) sec Sodium (137-145) mmol/L Potassium (3.5-5.1) mmol/L Chloride (98-107) mmol/L Carbon Dioxide (22-30) mmol/L Anion Gap mmol/L BUN (7-17) mg/dL Creatinine (0.52-1.04) mg/dL Est GFR (CKD-EPI)AfAm (>60 ml/min/1.73 sqM) Est GFR (CKD-EPI)NonAf (>60 ml/min/1.73 sqM) Glucose (74-99) mg/dL Lactic Ac Sepsis Rflx Plasma Lactic Acid Yohan 2.4 H* (0.7-2.0) mmol/L Calcium (8.4-10.2) mg/dL Magnesium (1.6-2.3) mg/dL Total Bilirubin (0.2-1.3) mg/dL AST (14-36) U/L ALT (4-34) U/L Alkaline Phosphatase (38-126) U/L Troponin I <0.012 (0.000-0.034) ng/mL NT-Pro-B Natriuret Pep pg/mL Total Protein (6.3-8.2) g/dL Albumin (3.5-5.0) g/dL Influenza Type A (PCR) Not Detected (Not Detectd) Influenza Type B (PCR) Not Detected (Not Detectd) RSV (PCR) Not Detected (Not Detectd) SARS-CoV-2 (PCR) Not Detected (Not Detectd) 09/23/24 09/23/24 Range/Units 11:53 13:55 WBC (4.50-10.00) 10*3/uL RBC (4.10-5.20) 10*6/uL Hgb (12.0-15.0) g/dL Hct (37.2-46.3) % MCV (80.0-97.0) fL MCH (27.0-32.0) pg MCHC (32.0-37.0) g/dL Plt Count (140-440) 10*3/uL MPV (9.5-12.2) fL Immature Gran % (Auto) % Neutrophils % % Lymphocytes % % Monocytes % % Eosinophils % % Basophils % % Immature Gran # (0.00-0.04) 10*3/uL Neutrophils # (1.80-7.70) 10*3/uL Lymphocytes # (0.90-5.00) 10*3/uL Monocytes # (0.20-1.00) 10*3/uL Eosinophils # (0.04-0.35) 10*3/uL Basophils # (0.00-0.10) 10*3/uL PT (10.0-12.5) sec INR (<1.2) APTT (22.0-30.0) sec Sodium (137-145) mmol/L Potassium (3.5-5.1) mmol/L Chloride (98-107) mmol/L Carbon Dioxide (22-30) mmol/L Anion Gap mmol/L BUN (7-17) mg/dL Creatinine (0.52-1.04) mg/dL Est GFR (CKD-EPI)AfAm (>60 ml/min/1.73 sqM) Est GFR (CKD-EPI)NonAf (>60 ml/min/1.73 sqM) Glucose (74-99) mg/dL Lactic Ac Sepsis Rflx Y Plasma Lactic Acid Yohan 2.0 (0.7-2.0) mmol/L Calcium (8.4-10.2) mg/dL Magnesium (1.6-2.3) mg/dL Total Bilirubin (0.2-1.3) mg/dL AST (14-36) U/L ALT (4-34) U/L Alkaline Phosphatase (38-126) U/L Troponin I (0.000-0.034) ng/mL NT-Pro-B Natriuret Pep pg/mL Total Protein (6.3-8.2) g/dL Albumin (3.5-5.0) g/dL Influenza Type A (PCR) (Not Detectd) Influenza Type B (PCR) (Not Detectd) RSV (PCR) (Not Detectd) SARS-CoV-2 (PCR) (Not Detectd) - EKG Data -: EKG Interpreted by Me EKG Comments: 12-lead Electrocardiogram Interpretation Note EKG was reviewed and interpreted by myself. 12-lead ECG performed at 1108 is interpreted by me as revealing normal sinus rhythm at a rate of 83 beats per minute. [place] is normal. TN interval is 129 ms, QRS duration is 96 ms, QTc is 426 ms.. There were no ST or T wave abnormalities to suggest myocardial ischemia or injury. R wave progression across the precordium was delayed. By my interpretation this EKG is non-diagnostic for acute ischemia. Critical Care Time Critical Care Time: Yes Total Critical Care Time: 31 Disposition Clinical Impression: Sepsis, COPD (chronic obstructive pulmonary disease), Tracheobronchitis Disposition: ADMITTED IP TO THIS HOSP Condition: Stable Time of Disposition: 13:35
[2024-09-23] MEDS: LEVOFLOXACIN 750MG-D5W PMX 750 MG in DEXTROSE/WATER 1 150ML.BAG IVPB STA (14:19)
[2024-09-23 14:54] LABS: Appearance,Urine Clear (Clear); Bilirubin,Urine Negative (Negative); Blood,Urine Negative (Negative); Color,Urine Yellow; Glucose,Urine (UA) Negative (Negative); Ketones,Urine Negative (Negative); Leukocyte Esterase,Urine Moderate (Negative); Mucus,Urine Rare /hpf; Nitrite,Urine Negative (Negative); Protein,Urine Negative (Negative); RBC,Urine 4 /hpf (0-5); Specific Gravity,Urine 1.011 (1.001-1.035); Squamous Epithelial Cell,Urine <1 /hpf (0-4); Urobilinogen,Urine <2.0 mg/dL (<2.0); WBC,Urine 6 /hpf (0-5)
[2024-09-23] MEDS: IPRATROPIUM-ALBUTEROL 3 ML NEB INHALATION SCH (16:04)
[2024-09-23] MEDS ORDERED: MIDODRINE 5 MG TAB PO PRN (21:16)
[2024-09-23] MEDS ORDERED: LIDOCAINE 4% CREAM 5 GM TUBE TOPICAL PRN (21:16)
[2024-09-23] MEDS: DULoxetine HCL 60 MG CAPSULE.DR PO SCH (22:21)
[2024-09-23] MEDS: METOPROLOL TARTRATE 25 MG TAB PO SCH (22:21)
[2024-09-23] MEDS: ATORVASTATIN 20 MG TAB PO SCH (22:21)
[2024-09-23] MEDS: MEMANTINE 10 MG TAB PO SCH (22:21)
[2024-09-23] MEDS: ASPIRIN 81 MG PO SCH (22:21)
[2024-09-23] MEDS: MELATONIN 5 MG TABLET PO SCH (22:21)
[2024-09-23] MEDS: FAMOTIDINE 20 MG TAB PO SCH (22:21)
[2024-09-23] MEDS: methylPREDNISolone SOD SUCCI 40 MG/ML 1 ML VIAL IV SCH (22:22)
[2024-09-24] MEDS ORDERED: guaiFENesin-DM 100-10MG/5ML 10 ML CUP PO PRN (04:38)
--- NOTE | 2024-09-24 04:44 | P.CNPUL ---
History of Present Illness Consult date: 09/24/24 Requesting physician: Jerad Andrew Reason for consult: COPD Chief complaint: shortness of breath History of present illness: Patient is a 74-year-old female with past medical history significant for COPD, former tobacco smoker, hypertension, hyperlipidemia, CVA/TIA, breast cancer with previous lumpectomy and chemo/radiation, memory impairment. Presented the emergency department yesterday afternoon with a chief complaint of shortness of breath with associated cough and chest tightness. Cough previously productive with cream colored sputum and now is congested and nonproductive. Reportedly, does have history of COPD. Previous heavy 1 pack/day smoker, quit smoking cigarettes approximately 5 years ago. Noted to be wheezing on arrival in the ED and her COPD was thought to be an exacerbation. Also, found hypotensive initially on presentation, received a total of 1.5 L crystalloid fluid. Workup in the emergency department including a chest x-ray showing hyperinflation consistent with COPD. No focal infiltrates or evidence of pneumonia. Viral 4 Plex unremarkable for influenza A/B, RSV, COVID. CBC: WBC count 12.8, hemoglobin 13.3, platelets 195. BMP: Sodium 135, potassium 5.2, chloride 105, serum bicarb 20, BUN 21, creatinine 1.02, glucose 117. Lactic 2. LFTs unremarkable. Troponin less than 0.012. NT proBNP 1880. Normal saline currently infusing at 130 mL/h. Patient currently being evaluated on the general medical floor. She is on room air. No acute distress. She is a questionable historian. Endorses above-mentioned symptoms. Denies any sick contacts. Denies any fever/chills, hemoptysis, chest pain. Denies any nausea, vomiting, diarrhea. Tolerating oral fluids and food. Denies any heart palpitations, syncopal events, lower extremity edema. Blood pressure is improved. Previously started on Levaquin empirically. Remains afebrile. Current vital signs: Temperature 98.9 F, heart rate 89 bpm, blood pressure 136/77 mmHg, nontachypneic, SpO2 recorded at 93% on room air. Review of Systems Constitutional: Reports fatigue, Reports sweats, Denies chills, Denies fever, Denies poor appetite, Denies weight gain, Denies weight loss Ears, nose, mouth and throat: Reports nasal discharge, Denies headache, Denies nasal congestion, Denies post-nasal drip, Denies sinus pain, Denies sinus pressure, Denies sore throat Cardiovascular: Reports shortness of breath, Denies chest pain, Denies leg edema, Denies lightheadedness, Denies orthopnea, Denies palpitations, Denies paroxysmal nocturnal dyspnea Respiratory: Reports as per HPI Gastrointestinal: Denies abdominal pain, Denies change in bowel habits, Denies diarrhea, Denies hematemesis, Denies hematochezia, Denies melena, Denies nausea, Denies vomiting Genitourinary: Denies dysuria, Denies flank pain, Denies hematuria Musculoskeletal: Denies leg numbness/tingling Integumentary: Denies rash Neurological: Denies seizures, Denies syncope Psychiatric: Denies anxiety, Denies depression Past Medical History Past Medical History: Cancer, COPD, CVA/TIA, Hypertension, Memory Impairment, Myocardial Infarction ([place]), Neurologic Disorder, Renal Disease, Syncope, Vascular Disorder Additional Past Medical History / Comment(s): Beginnings of memory problems, 2012 breast cancer/lumpectomy/chemo/radiation, lumbar compression fractures, TTT/neurocardiogenic syncopies, cardiac valve disease, nuclear stress test indicated [place] at some time, PVCs, cat scan showed old areas infarct, small AAA/aortic plaque/thrombus, caratid artery disease, severe COPD, "kidney issues", benign colon polyp, colitis or IBS, possible celiac's disease, basal cell skin cancer removed, osteoporosis with reclast infusion, Last Myocardial Infarction Date:: unkn History of Any Multi-Drug Resistant Organisms: None Reported Past Surgical History: Back Surgery, Breast Surgery, Hysterectomy, Orthopedic Surgery Additional Past Surgical History / Comment(s): Breast biopsy/lumpectomy, lumbar kyphoplasty/kenolog injections, depo medrol injections in lower back, loop recorder, colonoscopy/polypectomy, skin cancer removed from scalp, L hip sx. Past Anesthesia/Blood Transfusion Reactions: No Reported Reaction Past Psychological History: Anxiety, Depression Additional Psychological History / Comment(s): Pt resides with her spouse. She has a walker but does not use it much. She no longer drives, her spouse drives and manages her medications. Smoking Status: Former smoker Past Alcohol Use History: None Reported Additional Past Alcohol Use History / Comment(s): Pt started smoking in 1965 and quit in 2019. Past Drug Use History: None Reported - Past Family History Father Family Medical History: CVA/TIA Mother Family Medical History: Cancer Additional Family Medical History / Comment(s): Breast cancer. Medications and Allergies Home Medications Medication Instructions Recorded Confirmed Type DULoxetine HCL [Cymbalta] 60 mg PO HS 08/26/21 09/23/24 History Metoprolol Tartrate [Lopressor] 25 mg PO BID 08/26/21 09/23/24 History Rosuvastatin [Crestor] 10 mg PO HS 08/26/21 09/23/24 History Aspirin EC [Ecotrin Low Dose] 81 mg PO HS 10/18/22 09/23/24 History Carbidopa-Levodopa 25-100 mg 1 tab PO PC-TID 10/18/22 09/23/24 History [Sinemet 25-100 mg] Donepezil [Aricept] 5 mg PO DAILY 04/08/23 09/23/24 History Memantine [Namenda] 10 mg PO BID 04/08/23 09/23/24 History Mesalamine [Mesalamine ER] 1.5 gm PO DAILY@1400 04/08/23 09/23/24 History Budesonide/Formoterol Fumarate 2 puff INHALATION RT-BID 09/23/24 09/23/24 History [Symbicort 160-4.5 Mcg Inhaler] Famotidine [Pepcid] 20 mg PO BID 09/23/24 09/23/24 History Ketorolac [Toradol] 10 mg PO Q8H PRN 09/23/24 09/23/24 History Lidocaine 5% Oint [Xylocaine 5% 1 applic TOPICAL BID PRN 09/23/24 09/23/24 History Oint] Midodrine [ProAmatine] 5 mg PO DAILY PRN 09/23/24 09/23/24 History Multivit-Min/Iron/Folic/Lutein 1 tab PO DAILY 09/23/24 09/23/24 History [Centrum Silver Women Tablet] Allergies Allergy/AdvReac Type Severity Reaction Status Date / Time Cephalosporins Allergy Anaphylaxis Verified 09/23/24 12:03 Sulfa (Sulfonamide Allergy Rash/Hives Verified 09/23/24 12:03 Antibiotics) Physical Exam Vitals: Vital Signs Temp Pulse Pulse Resp BP BP Pulse Ox 09/24/24 01:14 98.9 F 89 19 136/77 93 L 09/23/24 22:00 18 09/23/24 19:29 98.8 F 93 19 121/75 97 09/23/24 18:44 98.4 F 93 18 125/73 96 09/23/24 16:07 95 09/23/24 16:04 92 18 09/23/24 16:00 128/77 96 09/23/24 14:00 98.1 F 86 18 126/74 93 L 09/23/24 13:38 89 13 120/70 94 L 09/23/24 12:59 78 18 09/23/24 12:47 77 18 09/23/24 12:13 81 20 111/67 91 L 09/23/24 11:05 98.0 F 92 22 88/57 91 L 09/23/24 10:57 99.1 F 97 18 71/47 92 L Intake and Output 09/23/24 09/23/24 09/24/24 14:59 22:59 06:59 Other: # Voids 2 Weight 55.338 kg 55.338 kg GENERAL EXAM: Alert, 74-year-old female, comfortable in no apparent distress. HEAD: Normocephalic and atraumatic EYES: Normal reaction of pupils, equal size. NOSE: Clear with pink turbinates. THROAT: No erythema or exudates. NECK: No masses, no JVD. CHEST: No chest wall deformity. LUNGS: Equal air entry with no crackles, wheeze, rhonchi or dullness. On room air. No conversational dyspnea or accessory muscle use.. CVS: S1 and S2 normal with systolic murmur, grade 2, regular rhythm. No other extra heart sounds ABDOMEN: No hepatosplenomegaly, active bowel sounds, no guarding or rigidity. SPINE: No scoliosis or deformity SKIN: No rashes CENTRAL NERVOUS SYSTEM: No focal deficits, tone is normal in all 4 extremities. EXTREMITIES: There is no peripheral edema, clubbing, or cyanosis. Peripheral pulses are intact. Results - Laboratory Findings CBC and BMP: 09/23/24 11:21 09/23/24 11:21 PT/INR, D-dimer PT 10.9 sec (10.0-12.5) 09/23/24 11:21 INR 1.0 (<1.2) 09/23/24 11:21 Abnormal lab findings: Abnormal Labs 09/23/24 09/23/24 09/23/24 11:21 11:21 11:21 WBC 12.80 H Immature Gran # 0.07 H Neutrophils # 10.19 H Monocytes # 1.12 H Sodium 135 L Potassium 5.2 H Carbon Dioxide 20 L BUN 21 H Glucose 117 H Plasma Lactic Acid Yohan 2.4 H* AST 46 H Alkaline Phosphatase 29 L Ur Leukocyte Esterase Urine WBC Urine Mucus 09/23/24 14:42 WBC Immature Gran # Neutrophils # Monocytes # Sodium Potassium Carbon Dioxide BUN Glucose Plasma Lactic Acid Yohan AST Alkaline Phosphatase Ur Leukocyte Esterase Moderate H Urine WBC 6 H Urine Mucus Rare H - Diagnostic Findings Chest x-ray: image reviewed Assessment and Plan Assessment: Suspect acute COPD exacerbation Acute dyspnea, secondary to above Former tobacco smoker History of hypertension History of hyperlipidemia History of CVA/TIA History of breast cancer with previous lumpectomy and chemo/radiation History of memory impairment, on Aricept and Namenda Plan: Currently on room air Patient's medications, labs, chest x-ray reviewed No focal infiltrates or evidence of pneumonia Viral 4 Plex negative for influenza A/B, RSV, COVID Urine Legionella antigen negative Previously started on Levaquin in the ED Check procalcitonin level Continues on a combination of DuoNebs [id number], Symbicort inhaler, and IV Solu-Medrol We will continue to follow I have personally seen and examined the patient, performed the documentation and the assessment and plan as written. Number of minutes spent on the visit:20 Time with Patient: Greater than 30
--- NOTE | 2024-09-24 07:25 | XR ---
EXAMINATION TYPE: XR chest 2V DATE OF EXAM: 09/24/2024 6:57 AM COMPARISON: 09/23/2024 CLINICAL INDICATION: Female, 74 years old with history of pneumonia: Shortness of breath TECHNIQUE: XR chest 2V views of the chest are obtained. FINDINGS: Scattered senescent parenchymal changes noted. Hyperinflation compatible with COPD. No evidence for infiltrate. No evidence for atelectasis. Heart size is stable. Mediastinal structures are stable and grossly unremarkable. No evidence for hilar prominence. Degenerative changes dorsal spine. IMPRESSION: 1. No evidence for acute pulmonary disease. [facility], , 09/24/2024 7:22 AM
[2024-09-24 08:28] LABS: Basophils # (A) 0.02 X 10*3/uL (0.00-0.10); Basophils % (A) 0.3 %; Eosinophils # (A) 0 X 10*3/uL (0.04-0.35); Eosinophils % (A) 0 %; HCT 35.4 % (37.2-46.3); Lymphocytes # (A) 0.68 X 10*3/uL (0.90-5.00); Lymphocytes % (A) 10.1 %; MCH 29.8 pg (27.0-32.0); MCHC 31.1 g/dL (32.0-37.0); MCV 95.9 FL (80.0-97.0); Mean Platelet Volume 10.3 FL (9.5-12.2); Monocytes # (A) 0.15 X 10*3/uL (0.20-1.00); Monocytes % (A) 2.2 %; NRBC Per 100 WBC 0 X 10*3/uL (0.00-0.01); Neutrophils # (A) 5.82 X 10*3/uL (1.80-7.70); Neutrophils % (A) 86.5 %; Platelet Count 176 X 10*3/uL (140-440); RBC 3.69 X 10*6/uL (4.10-5.20); RDW 14.9 % (11.5-14.5); WBC 6.73 X 10*3/uL (4.50-10.00)
[2024-09-24 08:32] LABS: ALT 18 U/L (8-44); AST 16 U/L (13-35); Albumin 3.1 g/dL (3.8-4.9); Albumin/Globulin Ratio 1.55 Ratio (1.60-3.17); Alkaline Phosphatase 40 U/L (41-126); BUN/Creat Ratio 19.12 Ratio (12.00-20.00); Blood Urea Nitrogen 15.3 mg/dL (9.0-27.0); Calcium 8.8 mg/dL (8.7-10.3); Carbon Dioxide 20.9 mmol/L (21.6-31.8); Chloride 114 mmol/L (96-109); Glucose 161 mg/dL (70-110); Potassium 4.5 mmol/L (3.5-5.5); Sodium 143 mmol/L (135-145); Total Bilirubin <0.2 mg/dL (0.3-1.2); Total Protein 5.1 g/dL (6.2-8.2)
[2024-09-24] MEDS: SYMBICORT 160-4.5 MCG INHALER INHALATION SCH (08:37)
[2024-09-24] MEDS: CARBIDOPA-LEVODOPA 25-100 MG 1 EACH TAB PO SCH (09:26)
[2024-09-24] MEDS: MULTIVITAMINS, THERA 1 EACH TAB PO SCH (09:26)
[2024-09-24] MEDS: ENOXAPARIN 40 MG/0.4 ML SYRINGE SQ SCH (09:26)
[2024-09-24] MEDS: DONEPEZIL 5 MG TAB PO SCH (09:27)
[2024-09-24] MEDS ORDERED: RX INFO: IV CONTRAST WAS GIVEN 1 EACH MISC MISCELLANE PRN (12:22)
--- NOTE | 2024-09-24 14:47 | CT ---
EXAMINATION TYPE: CT chest angio for PE DATE OF EXAM: 09/24/2024 COMPARISON: None CLINICAL INDICATION: Female, 74 years old with history of sob r/o pe; PHH, SOB, SOB or PAIN TECHNIQUE: Ct angiogram of the chest performed with with IV Contrast, patient injected with 80cc mL of Isovue 37 0. MIP images are created and reviewed. CT DLP: [address] CTDI: mGy Automated exposure control for dose reduction was used. FINDINGS:. There are no suspicious lung masses or nodules. There is no airspace consolidation. There are small bilateral pleural effusions. There is mild cardiomegaly. The great vessels the chest are normal as no mediastinal, hilar or axillary adenopathy. There are no filling defects within the pulmonary arterial circulation to suggest pulmonary embolism. Limited scanning through the upper abdomen reveals a moderate compression fracture T8. There is verte broplasty at T12, L1, L2 and L3. IMPRESSION: 1. No pulmonary embolus. 2. Small bilateral pleural effusions. Mild cardiomegaly. 3. Compression fracture T8 and multiple vertebroplasty in the lower thoracic and upper lumbar spine maria del carmen skelton described. [facility], , 09/24/2024 2:45 PM
--- NOTE | 2024-09-24 15:16 | P.HPIM ---
History of Present Illness H&P Date: 09/24/24 This is a pleasant 74-year-old female with medical history significant for COPD, stroke, hypertension, breast cancer with chemoradiation, IBS, anxiety/depression. Patient comes into the hospital with a 2-day history of shortness of breath and productive cough. She is also been significantly weak. She does not wear any oxygen at home. Patient states that initially her cough was productive with rios sputum. She denies any fever. She also does report that she had some chest heaviness at 1 point that is gone at this time. Initial chest x-ray reveals no acute pulmonary disease. EKG reveals normal sinus rhythm. On admission white blood cell count was 12.80, sodium of 135 potassium 5.2, BUN of 21 1.02. AST of 46 alk phos of 29. Troponin level was negative and her proBNP was 1880. Urinalysis was negative for infection and her viral panel was negative for influenza Legionella RSV and COVID. Her procalcitonin level was less than 0.20. Patient was started IV levofloxacin by the ER physician which has been discontinued because her procalcitonin level was found to be normal. Patient is noted to have a systolic murmur on examination she does state that she follows with Dr. Diaz on an outpatient basis and is post to have a CONSTANCE done for further evaluation of her valve. D-dimer was found to be elevated at 1.05. Patient had a chest CT angiography completed which reveals no pulmonary embolism. There are small bilateral pleural effusions and mild cardiomegaly. There is a compression fracture at T8 and multiple vertebroplasty in the lower thoracic and upper lumbar spine as described. Patient is resumed on all home medications. Pulmonary was consulted. REVIEW OF SYSTEMS: CONSTITUTIONAL: No fever, no malaise, no fatigue. HEENT: No recent visual problems or hearing problems. Denied any sore throat. CARDIOVASCULAR: No chest pain, orthopnea, PND, no palpitations, no syncope. PULMONARY: Reports shortness of breath, reports cough, no hemoptysis. GASTROINTESTINAL: No diarrhea, no nausea, no vomiting, no abdominal pain. NEUROLOGICAL: No headaches, no weakness, no numbness. HEMATOLOGICAL: Denies any bleeding or petechiae. GENITOURINARY: Denies any burning micturition, frequency, or urgency. MUSCULOSKELETAL/RHEUMATOLOGICAL: Denies any joint pain, swelling, or any muscle pain. ENDOCRINE: Denies any polyuria or polydipsia. The rest of the 14-point review of systems is negative. PHYSICAL EXAMINATION: GENERAL: The patient is alert and oriented x3, not in any acute distress. Well developed, well nourished. HEENT: Pupils are round and equally reacting to light. EOMI. No scleral icterus. No conjunctival pallor. Normocephalic, atraumatic. No pharyngeal erythema. No thyromegaly. CARDIOVASCULAR: S1 and S2 present. Systolic murmur present; no rubs, or gallops. PULMONARY: Chest is clear to auscultation, no wheezing or crackles. ABDOMEN: Soft, nontender, nondistended, normoactive bowel sounds. No palpable organomegaly. MUSCULOSKELETAL: No joint swelling or deformity. EXTREMITIES: No cyanosis, clubbing, or pedal edema. NEUROLOGICAL: Gross neurological examination did not reveal any focal deficits. SKIN: No rashes. Assessment and plan Generalized weakness from chronic medical debility systolic murmur; echocardiogram ordered Copd with mild acute exacerbation Shortness of breath History of stroke hypertension Breast cancer with chemoradiation and lumpectomy History of lumbar compression fractures with CTA showing a t8 compression fra cture Memory impairment maintained on Aricept and Namenda GI prophylaxis DVT prophylaxis Full Code Plan Pulmonary consultation D/C levofloxacin Continue IV solumedrol CTA reviewed Orthopedic evaluation/PT/OT May require TLSO brace for the compression fracture Echocardiogram ordered D/C home in the next 24-48 hours The impression and plan of care has been dictated by Paulette Workman Nurse Practitioner as directed. Dr. Yuliet MD I have performed a history and physical examination and medical decision making of this patient, discussed the same with the dictator, and agree with the dictators assessment and plan as written, documented as a scribe. Based on total visit time, I have performed more than 50% of this visit. Past Medical History Past Medical History: Cancer, COPD, CVA/TIA, Hypertension, Memory Impairment, Myocardial Infarction ([place]), Neurologic Disorder, Renal Disease, Syncope, Vascular Disorder Additional Past Medical History / Comment(s): Beginnings of memory problems, 2012 breast cancer/lumpectomy/chemo/radiation, lumbar compression fractures, TTT/neurocardiogenic syncopies, cardiac valve disease, nuclear stress test indicated [place] at some time, PVCs, cat scan showed old areas infarct, small AAA /aortic plaque/thrombus, caratid artery disease, severe COPD, "kidney issues", benign colon polyp, colitis or IBS, possible celiac's disease, basal cell skin cancer removed, osteoporosis with reclast infusion, Last Myocardial Infarction Date:: unkn History of Any Multi-Drug Resistant Organisms: None Reported Past Surgical History: Back Surgery, Breast Surgery, Hysterectomy, Orthopedic Surgery Additional Past Surgical History / Comment(s): Breast biopsy/lumpectomy, lumbar kyphoplasty/kenolog injections, depo medrol injections in lower back, loop recorder, colonoscopy/polypectomy, skin cancer removed from scalp, L hip sx. Past Anesthesia/Blood Transfusion Reactions: No Reported Reaction Past Psychological History: Anxiety, Depression Additional Psychological History / Comment(s): Pt resides with her spouse. She has a walker but does not use it much. She no longer drives, her spouse drives and manages her medications. Smoking Status: Former smoker Past Alcohol Use History: None Reported Additional Past Alcohol Use History / Comment(s): Pt started smoking in 1965 and quit in 2018. Past Drug Use History: None Reported - Past Family History Father Family Medical History: CVA/TIA Mother Family Medical History: Cancer Additional Family Medical History / Comment(s): Breast cancer. Medications and Allergies Home Medications Medication Instructions Recorded Confirmed Type DULoxetine HCL [Cymbalta] 60 mg PO HS 08/26/21 09/23/24 History Metoprolol Tartrate [Lopressor] 25 mg PO BID 08/26/21 09/23/24 History Rosuvastatin [Crestor] 10 mg PO HS 08/26/21 09/23/24 History Aspirin EC [Ecotrin Low Dose] 81 mg PO HS 10/18/22 09/23/24 History Carbidopa-Levodopa 25-100 mg 1 tab PO PC-TID 10/18/22 09/23/24 History [Sinemet 25-100 mg] Donepezil [Aricept] 5 mg PO DAILY 04/08/23 09/23/24 History Memantine [Namenda] 10 mg PO BID 04/08/23 09/23/24 History Mesalamine [Mesalamine ER] 1.5 gm PO DAILY@1400 04/08/23 09/23/24 History Budesonide/Formoterol Fumarate 2 puff INHALATION RT-BID 09/23/24 09/23/24 History [Symbicort 160-4.5 Mcg Inhaler] Famotidine [Pepcid] 20 mg PO BID 09/23/24 09/23/24 History Ketorolac [Toradol] 10 mg PO Q8H PRN 09/23/24 09/23/24 History Lidocaine 5% Oint [Xylocaine 5% 1 applic TOPICAL BID PRN 09/23/24 09/23/24 History Oint] Midodrine [ProAmatine] 5 mg PO DAILY PRN 09/23/24 09/23/24 History Multivit-Min/Iron/Folic/Lutein 1 tab PO DAILY 09/23/24 09/23/24 History [Centrum Silver Women Tablet] Allergies Allergy/AdvReac Type Severity Reaction Status Date / Time Cephalosporins Allergy Anaphylaxis Verified 09/23/24 12:03 Sulfa (Sulfonamide Allergy Rash/Hives Verified 09/23/24 12:03 Antibiotics) Physical Exam Vitals: Vital Signs Temp Pulse Pulse Resp BP BP BP 09/24/24 14:00 98.2 F 75 18 134/73 134/73 09/24/24 12:11 75 09/24/24 12:03 73 09/24/24 08:47 85 09/24/24 08:40 83 09/24/24 08:00 17 09/24/24 07:05 98.1 F 81 18 146/82 09/24/24 01:14 98.9 F 89 19 09/23/24 22:00 18 09/23/24 19:29 98.8 F 93 19 09/23/24 18:44 98.4 F 93 18 125/73 09/23/24 16:07 09/23/24 16:04 92 18 09/23/24 16:00 128/77 BP Pulse Ox 09/24/24 14:00 96 09/24/24 12:11 09/24/24 12:03 09/24/24 08:47 09/24/24 08:40 94 L 09/24/24 08:00 09/24/24 07:05 94 L 09/24/24 01:14 136/77 93 L 09/23/24 22:00 09/23/24 19:29 121/75 97 09/23/24 18:44 96 09/23/24 16:07 95 09/23/24 16:04 09/23/24 16:00 96 Intake and Output 09/24/24 09/24/24 09/24/24 06:59 14:59 22:59 Other: # Voids 1 # Bowel Movements 1 Results CBC & Chem 7: 09/24/24 03:56 09/24/24 03:56 Labs: Abnormal Lab Results - Last 24 Hours (Table) 09/24/24 09/24/24 09/24/24 Range/Units 03:56 03:56 10:03 RBC 3.69 L (4.10-5.20) X 10*6/uL Hgb 11.0 L (12.0-15.0) g/dL Hct 35.4 L (37.2-46.3) % MCHC 31.1 L (32.0-37.0) g/dL RDW 14.9 H (11.5-14.5) % Immature Gran # 0.06 H (0.00-0.04) X 10*3/uL Lymphocytes # 0.68 L (0.90-5.00) X 10*3/uL Monocytes # 0.15 L (0.20-1.00) X 10*3/uL Eosinophils # 0 L (0.04-0.35) X 10*3/uL D-Dimer 1.05 H (<0.60) mg/L FEU Chloride 114 H (96-109) mmol/L Carbon Dioxide 20.9 L (21.6-31.8) mmol/L Glucose 161 H (70-110) mg/dL Total Bilirubin <0.2 L (0.3-1.2) mg/dL Alkaline Phosphatase 40 L (41-126) U/L Total Protein 5.1 L (6.2-8.2) g/dL Albumin 3.1 L (3.8-4.9) g/dL Albumin/Globulin Ratio 1.55 L (1.60-3.17) Ratio Thrombosis Risk Factor Assmnt - Choose All That Apply Any of the Below Risk Factors Present?: Yes Each Factor Represents 1 point: Abnormal pulmonary function (COPD), Hx of IBD Each Risk Factor Represents 3 Points: Age 75 years or older Thrombosis Risk Factor Assessment Total Risk Factor Score: 5 Thrombosis Risk Factor Assessment Level: High Risk Assessment and Plan Time with Patient: Less than 30
[2024-09-24] MEDS: BALSALAZIDE DISODIUM 750 MG CAPSULE PO SCH (16:05)
--- NOTE | 2024-09-24 16:50 | CA ---
Transthoracic Echo Report Name: Ranulfo Braswell Age: 74 Gender: F : 1950 Exam Date: 09/24/2024 13:43 Exam Location: [facility] Ht (in): 63 Wt (lb): 122 Ordering Physician: Dinorah Toledo Attending/Referring Phys: Food Service Substitute Franca Del Castillo RDCS Procedure CPT: Indications: dyspnea, murmur Cardiac Hx: Technical Quality: Good Contrast 1: Total Dose (mL): Contrast 2: Total Dose (mL): MEASUREMENTS (Male / Female) Normal Values 2D ECHO LV Diastolic Diameter PLAX 4.7 cm 4.2 - 5.9 / 3.9 - 5.3 cm LV Systolic Diameter PLAX 3.1 cm IVS Diastolic Thickness 1.1 cm 0.6 - 1.0 / 0.6 - 0.9 cm LVPW Diastolic Thickness 1.1 cm 0.6 - 1.0 / 0.6 - 0.9 cm LV Relative Wall Thickness 0.5 RV Internal Dim ED PLAX 3.1 cm LVOT Diameter 2.4 cm LA Systolic Diameter LX 3.6 cm 3.0 - 4.0 / 2.7 - 3.8 cm LV Diastolic Volume MOD BP 73.2 cm??? 67 - 155 / 56 - 104 cm??? LV Systolic Volume MOD BP 29.4 cm??? - 58 / 19 - 49 cm??? LV Ejection Fraction MOD BP 59.8 % >= 55 % LV Cardiac Index MOD BP 2120.0 cm???/min???m??? LV Diastolic Volume MOD 4C 77.8 cm??? LV Systolic Volume MOD 4C 33.5 cm??? LV Ejection Fraction MOD 4C 57.0 % LV Cardiac Index MOD 4C 2146.9 cm???/min???m??? LV Diastolic Length 4C 6.7 cm LV Systolic Length 4C 6.0 cm LV Diastolic Volume MOD 2C 64.8 cm??? LV Systolic Volume MOD 2C 26.9 cm??? LV Ejection Fraction MOD 2C 58.5 % LV Cardiac Index MOD 2C 1834.8 cm???/min???m??? LV Diastolic Length 2C 7.3 cm LV Systolic Length 2C 6.0 cm LA Volume 68.2 cm??? 18 - 58 / 22 - 52 cm??? LA Volume Index 43.4 cm???/m??? 16 - 28 cm???/m??? M-MODE Aortic Root Diameter MM 3.2 cm AV Cusp Separation MM 1.1 cm DOPPLER AV Peak Velocity 283.8 cm/s AV Peak Gradient 32.2 mmHg AV Mean Velocity 197.5 cm/s AV Mean Gradient 17.8 mmHg AV Velocity Time Integral 67.0 cm AI Peak Velocity 302.0 cm/s AI Peak Gradient 36.5 mmHg AI Pressure Half Time 851.2 ms LVOT Peak Velocity 78.8 cm/s LVOT Peak Gradient 2.5 mmHg LVOT Velocity Time Integral 21.1 cm LVOT Stroke Volume 95.8 cm??? LVOT Stroke Volume Index 61.1 ml/m??? LVOT Cardiac Index 4635.4 cm???/min???m??? AV Area Cont Eq vti 1.4 cm??? AV Area Cont Eq pk 1.3 cm??? MV Area PHT 4.7 cm??? Mitral E Point Velocity 98.1 cm/s Mitral A Point Velocity 107.4 cm/s Mitral E to A Ratio 0.9 MV Deceleration Time 160.6 ms TR Peak Velocity 360.5 cm/s TR Peak Gradient 52.0 mmHg Right Ventricular Systolic Press 57.0 mmHg FINDINGS Left Ventricle Left ventricular ejection fraction is estimated at 55-60 %. Left ventricular cavity size normal. Mildly increased septal wall thickness. Mildly increased posterior wall thickness. Normal left ventricular wall motion. Right Ventricle Normal right ventricular size. Severe pulmonary hypertension. Right ventricular systolic pressure estimated at 57 mm hg. Right Atrium Normal right atrial size. No right atrial thrombus or mass seen. Left Atrium Moderately increased left atrial volume. No left atrial thrombus or mass present. Mitral Valve Mitral valve thickened. Mild mitral annular calcification. Mild mitral regurgitation. Aortic Valve Aortic valve sclerosis. Mild aortic stenosis with a peak gradient of 32 mmHg and a mean gradient of 18 mmHg. Tricuspid Valve Structurally normal tricuspid valve. [id number] tricuspid regurgitation. Pulmonic Valve Pulmonic valve not well visualized. No pulmonic regurgitation. Pericardium No pericardial effusion. Aorta Normal size aortic root and proximal ascending aorta. CONCLUSIONS Left ventricular ejection fraction 55 to 60% RVSP 57 Mild to moderate aortic stenosis Mild to moderate tricuspid regurgitation Previewed by: Dr. Winston Hwang DO (Electronically Signed) Final Date: 24 September 2024 16:49
[2024-09-24] MEDS: LOPERAMIDE 2 MG CAP PO PRN (20:49)
[2024-09-25 02:37] VITALS: RESP 16
[2024-09-25 08:11] VITALS: BP 144/82; TEMP 98.1
[2024-09-25 11:21] VITALS: PULSE 74
--- NOTE | 2024-09-25 12:19 | P.CNOR ---
History of Present Illness - [facility] Consult date: 09/25/24 Requesting physician: Paulette Workman Consult reason: fracture (T8 compression Fx) History of present illness: Patient is a very pleasant 74-year-old female who is seen examined the bedside for further evaluation of her thoracic spine after T8 compression fracture was found on CT imaging. In regards to her thoracic spine, patient denies any recent injuries. She does not have any thoracic back pain. She has no pain with bending and twisting. She has no pain with coughing or sneezing. She denies any lower extremity weakness or radiculopathy pattern bilaterally. She states she does have a history of multiple falls in the past but nothing recently. She does have a significant history with multiple compression fracture deformities in which she underwent kyphoplasty. In reviewing of imaging, it appears she has had kyphoplasty at T12, L1, L2, L3, and L4. Currently she is undergoing further treatment and evaluation with medicine and pulmonology. She has a significant medical history including COPD, stroke, hypertension, breast cancer with chemoradiation, anxiety/depression, and neuropathy. Past Medical History Past Medical History: Cancer, COPD, CVA/TIA, Hypertension, Memory Impairment, Myocardial Infarction (CA), Neurologic Disorder, Renal Disease, Syncope, Vascular Disorder Additional Past Medical History / Comment(s): Beginnings of memory problems, 2012 breast cancer/lumpectomy/chemo/radiation, lumbar compression fractures, TTT/neurocardiogenic syncopies, cardiac valve disease, nuclear stress test indicated CA at some time, PVCs, cat scan showed old areas infarct, small AAA/aortic plaque/thrombus, caratid artery disease, severe COPD, "kidney issues", benign colon polyp, colitis or IBS, possible celiac's disease, basal cell skin cancer removed, osteoporosis with reclast infusion, Last Myocardial Infarction Date:: unkn History of Any Multi-Drug Resistant Organisms: None Reported Past Surgical History: Back Surgery, Breast Surgery, Hysterectomy, Orthopedic Surgery Additional Past Surgical History / Comment(s): Breast biopsy/lumpectomy, lumbar kyphoplasty/kenolog injections, depo medrol injections in lower back, loop recorder, colonoscopy/polypectomy, skin cancer removed from scalp, L hip sx. Past Anesthesia/Blood Transfusion Reactions: No Reported Reaction Past Psychological History: Anxiety, Depression Additional Psychological History / Comment(s): Pt resides with her spouse. She has a walker but does not use it much. She no longer drives, her spouse drives and manages her medications. Smoking Status: Former smoker Past Alcohol Use History: None Reported Additional Past Alcohol Use History / Comment(s): Pt started smoking in 1965 and quit in 2018. Past Drug Use History: None Reported - Past Family History Father Family Medical History: CVA/TIA Mother Family Medical History: Cancer Additional Family Medical History / Comment(s): Breast cancer. Medications and Allergies Home Medications Medication Instructions Recorded Confirmed Type DULoxetine HCL [Cymbalta] 60 mg PO HS 08/26/21 09/23/24 History Metoprolol Tartrate [Lopressor] 25 mg PO BID 08/26/21 09/23/24 History Rosuvastatin [Crestor] 10 mg PO HS 08/26/21 09/23/24 History Aspirin EC [Ecotrin Low Dose] 81 mg PO HS 10/18/22 09/23/24 History Carbidopa-Levodopa 25-100 mg 1 tab PO PC-TID 10/18/22 09/23/24 History [Sinemet 25-100 mg] Donepezil [Aricept] 5 mg PO DAILY 04/08/23 09/23/24 History Memantine [Namenda] 10 mg PO BID 04/08/23 09/23/24 History Mesalamine [Mesalamine ER] 1.5 gm PO DAILY@1400 04/08/23 09/23/24 History Budesonide/Formoterol Fumarate 2 puff INHALATION RT-BID 09/23/24 09/23/24 History [Symbicort 160-4.5 Mcg Inhaler] Famotidine [Pepcid] 20 mg PO BID 09/23/24 09/23/24 History Ketorolac [Toradol] 10 mg PO Q8H PRN 09/23/24 09/23/24 History Lidocaine 5% Oint [Xylocaine 5% 1 applic TOPICAL BID PRN 09/23/24 09/23/24 History Oint] Midodrine [ProAmatine] 5 mg PO DAILY PRN 09/23/24 09/23/24 History Multivit-Min/Iron/Folic/Lutein 1 tab PO DAILY 09/23/24 09/23/24 History [Centrum Silver Women Tablet] Allergies Allergy/AdvReac Type Severity Reaction Status Date / Time Cephalosporins Allergy Anaphylaxis Verified 09/23/24 12:03 Sulfa (Sulfonamide Allergy Rash/Hives Verified 09/23/24 12:03 Antibiotics) Physical Examination Physical exam: Patient is awake, alert, and oriented 3 Vital signs stable Good chest excursion with deep inspiration and expiration Examination of thoracic and lumbar spine reveals skin is intact with no abrasions, lacerations, or bruises; no erythema, purulence or signs of infection No pain with palpation or percussion over the lumbar or thoracic spines Dorsiflexion, plantarflexion, and extensor hallucis longus positive sustained bilaterally Lower extremity strength 5/5 bilaterally No lower extremity hyperreflexia bilaterally Straight leg test negative bilateral lower extremities No signs or symptoms of DVT; no calf pain No pain with internal and external rotation of the hips bilaterally Vascularly intact Results Pertinent studies: CTA of the chest taken on 09/24/2024: Evidence of wedge compression fracture deformity of T8; evidence of multiple kyphoplasty at T12, L1, L2, L3, and L4 - Labs Labs: Microbiology - Last 24 Hours (Table) 09/23/24 13:55 Blood Culture - Preliminary Blood H & H 09/23/24 09/24/24 Range/Units 11:21 03:56 Hgb 13.3 11.0 L (12.0-15.0) g/dL Hct 41.4 35.4 L (37.2-46.3) % Coagulation 09/23/24 Range/Units 11:21 INR 1.0 (<1.2) Result Diagrams: 09/24/24 03:56 09/24/24 03:56 Assessment and Plan Assessment: Assessment: T8 compression fracture deformity on CT imaging, most likely chronic History of T12, L1, L2, L3, and L4 kyphoplasties History of multiple falls but no recent falls COPD History of stroke Hypertension Breast cancer with chemoradiation Anxiety/depression Neuropathy. (1) Compression fracture of T8 vertebra Current Visit: Yes Status: Acute Code(s): S22.060A - WEDGE COMPRESSION FRACTURE OF T7-T8 VERTEBRA, INIT SNOMED Code(s): 356346885 (2) History of kyphoplasty Current Visit: Yes Status: Acute Code(s): Z98.890 - OTHER SPECIFIED POSTPROCEDURAL STATES SNOMED Code(s): 876154704 (3) History of stroke Current Visit: Yes Status: Acute Code(s): Z86.73 - PRSNL HX OF TIA (TIA), AND CEREB INFRC W/O RESID DEFICITS SNOMED Code(s): 987215239 (4) Hypertension Current Visit: Yes Status: Acute Code(s): I10 - ESSENTIAL (PRIMARY) HYPER TENSION SNOMED Code(s): 12353283 (5) History of breast cancer Current Visit: Yes Status: Acute Code(s): Z85.3 - PERSONAL HISTORY OF MALIGNANT NEOPLASM OF BREAST SNOMED Code(s): 174076028 (6) Neuropathy Current Visit: Yes Status: Acute Code(s): G62.9 - POLYNEUROPATHY, UNSPECIFIED SNOMED Code(s): 200407852 (7) History of fall Current Visit: Yes Status: Acute Code(s): Z91.81 - HISTORY OF FALLING SNOMED Code(s): 201782267 (8) COPD (chronic obstructive pulmonary disease) Current Visit: Yes Status: Acute Code(s): J44.9 - CHRONIC OBSTRUCTIVE PULMONARY DISEASE, UNSPECIFIED SNOMED Code(s): 07015706 Plan: Plan: 1. Patient was seen examined the bedside for further evaluation of her thoracic spine after T8 compression fracture was found on CT imaging. In regards to her thoracic spine, patient denies any recent injuries. She does not have any thoracic back pain. She has no pain with bending and twisting. She has no pain with coughing or sneezing. She denies any lower extremity weakness or radiculopathy pattern bilaterally. She states she does have a history of multiple falls in the past but nothing recently. She does have a significant history with multiple compression fracture deformities in which she underwent kyphoplasty. In reviewing of imaging, it appears she has had kyphoplasty at T12, L1, L2, L3, and L4. I think her T8 compression fracture deformity is chronic in nature. We would not plan for bracing. She may ambulate and perform her regular activities of daily living to her tolerance. She is cleared for discharge from orthopedic spine standpoint. She will follow-up on an as-needed basis. Patient may follow-up with Holland Medley PA-C or Dr. Jeremy Adkins at [facility]. 2. Patient will continue be seen exam by multiple medical providers including medicine and pulmonology Time with Patient: Greater than 30 (Including obtaining history, physical examination, reviewing of imaging, and dictation.)
--- NOTE | 2024-09-25 12:40 | P.PN ---
Subjective Progress Note Date: 09/25/24 Patient is a 74-year-old female with past medical history significant for COPD, former tobacco smoker, hypertension, hyperlipidemia, CVA/TIA, breast cancer with previous lumpectomy and chemo/radiation, memory impairment. Presented the emergency department yesterday afternoon with a chief complaint of shortness of breath with associated cough and chest tightness. Cough previously productive with cream colored sputum and now is congested and nonproductive. Reportedly, does have history of COPD. Previous heavy 1 pack/day smoker, quit smoking cigarettes approximately 5 years ago. Noted to be wheezing on arrival in the ED and her COPD was thought to be an exacerbation. Also, found hypotensive init ially on presentation, received a total of 1.5 L crystalloid fluid. Workup in the emergency department including a chest x-ray showing hyperinflation consistent with COPD. No focal infiltrates or evidence of pneumonia. Viral 4 Plex unremarkable for influenza A/B, RSV, COVID. CBC: WBC count 12.8, hemoglobin 13.3, platelets 195. BMP: Sodium 135, potassium 5.2, chloride 105, serum bicarb 20, BUN 21, creatinine 1.02, glucose 117. Lactic 2. LFTs unremarkable. Troponin less than 0.012. NT proBNP 1880. Normal saline currently infusing at 130 mL/h. Patient currently being evaluated on the [facility] medical floor. She is on room air. No acute distress. She is a questionable historian. Endorses above-mentioned symptoms. Denies any sick contacts. Denies any fever/chills, hemoptysis, chest pain. Denies any nausea, vomiting, diarrhea. Tolerating oral fluids and food. Denies any heart palpitations, syncopal events, lower extremity edema. Blood pressure is improved. Previously started on Levaquin empirically. Remains afebrile. Current vital signs: Temperature 98.9 F, heart rate 89 bpm, blood pressure 136/77 mmHg, nontachypneic, SpO2 recorded at 93% on room air. The patient is seen today September 25, 2024 in follow-up on the regular medical floor. She is currently awake and alert in no acute distress. Resting comfortably in bed. Maintaining O2 saturations in the 90s on room air oxygen. She has normal saline at 75 mL/h. CT angiogram ruled out pulmonary embolism. There is small bilateral pleural effusions. Mild cardiomegaly. Blood culture revealed no growth. Procalcitonin negative. Echocardiogram revealed preserved left ventricular systolic function with an ejection fraction of 55 to 60%. Moderate pulmonary hypertension. Mild to moderate aortic stenosis. Mild to moderate tricuspid regurgitation. Objective - Vital Signs Vital signs: Vital Signs Temp 98.1 F 09/25/24 07:15 Pulse 74 09/25/24 11:20 Resp 16 09/25/24 07:15 BP 144/82 09/25/24 07:15 Pulse Ox 94 L 09/25/24 08:01 FiO2 Intake & Output 09/24/24 09/25/24 09/25/24 18:59 06:59 18:59 Intake Total 900 540 Balance 900 540 Intake: Intake, IV Titration 900 Amount Lactated Ringers 1,000 ml 900 @ 75 mls/hr IV .[id number] MIKEY Rx#:[id number] Oral 540 Other: # Voids 3 1 # Bowel Movements 1 1 - Exam GENERAL EXAM: Alert, 74-year-old female, resting comfortably in bed, on room air oxygen, in no apparent distress. HEAD: Normocephalic and atraumatic EYES: Normal reaction of pupils, equal size. NOSE: Clear with pink turbinates. THROAT: No erythema or exudates. NECK: No masses, no JVD. CHEST: No chest wall deformity. LUNGS: Equal air entry with no crackles, wheeze, rhonchi or dullness. No conversational dyspnea. CVS: S1 and S2 normal with systolic murmur, grade 2, regular rhythm. No other extra heart sounds ABDOMEN: No hepatosplenomegaly, active bowel sounds, no guarding or rigidity. SPINE: No scoliosis or deformity SKIN: No rashes CENTRAL NERVOUS SYSTEM: No focal deficits, tone is normal in all 4 extremities. EXTREMITIES: There is no peripheral edema, clubbing, or cyanosis. Peripheral pulses are intact. - Labs CBC & Chem 7: 09/24/24 03:56 09/24/24 03:56 Labs: Microbiology - Last 24 Hours (Table) 09/23/24 13:55 Blood Culture - Preliminary Blood Assessment and Plan Assessment: Acute exacerbation chronic obstructive pulmonary disease Acute dyspnea, secondary to above Former tobacco smoker History of hypertension History of hyperlipidemia History of CVA/TIA History of breast cancer with previous lumpectomy and chemo/radiation History of memory impairment, on Aricept and Namenda Plan: The patient was seen and evaluated CT angiogram reviewed No pulmonary embolism No focal consolidation Stable and on room air oxygen Continue DuoNeb inhalations Continue Symbicort Continue a prednisone taper Cleared for discharge Encouraged to follow-up with a feed inspection supervisor near [place] I have personally seen and examined the patient, performed the documentation and the assessment and plan as written. Number of minutes spent on the visit: 10 Dictation was produced using [employer] dictation software. Please excuse any grammatical, word or spelling errors.
[2024-09-25] MEDS ORDERED: LEVOFLOXACIN 750 MG TAB PO SCH (14:00)
[2024-09-26] MEDS ORDERED: predniSONE 10 MG TAB PO SCH (09:00)
== END 2024-09-25 14:54 | disposition home or self-care (01) ==
LOC: EC 10:56 → 4SSUR 14:14
PROVIDERS: ADMIT Internal Medicine; ATTEND Internal Medicine
DX: J44.1 Chronic obstructive pulmonary disease with (acute) exacerbation (principal); A41.9 Sepsis, unspecified organism; M48.54XA Collapsed vertebra, not elsewhere classified, thoracic region, initial encounter for fracture; R53.1 Weakness; R53.81 Other malaise; R01.1 Cardiac murmur, unspecified; R41.3 Other amnesia; I10 Essential (primary) hypertension; I25.10 Atherosclerotic heart disease of native coronary artery without angina pectoris; F32.A Depression, unspecified; F41.9 Anxiety disorder, unspecified; G62.9 Polyneuropathy, unspecified; E78.5 Hyperlipidemia, unspecified; I25.2 Old myocardial infarction; Z85.3 Personal history of malignant neoplasm of breast; Z85.828 Personal history of other malignant neoplasm of skin; Z86.73 Personal history of transient ischemic attack (TIA), and cerebral infarction without residual deficits; Z87.891 Personal history of nicotine dependence; Z91.81 History of falling; Z92.3 Personal history of irradiation; Z92.21 Personal history of antineoplastic chemotherapy; Z79.51 Long term (current) use of inhaled steroids; Z79.82 Long term (current) use of aspirin; Z79.899 Other long term (current) drug therapy; Z88.1 Allergy status to other antibiotic agents; Z88.2 Allergy status to sulfonamides
CPT/HCPCS: 96376 ×3; 96361 ×2; 96372 ×2; 96365; 96366; 96375; 99291; 36415; 94640 ×2; 93005; 93306; 97162; 97166; 85379; 83880; 80053 ×2; 87449; 83605; 83735; 84484; 85025 ×2; 85610; 85730; 81001; 87040; 84145; 87636; 71046 ×2; 71275; G0378 ×3; J1650 ×2; J1956; Q9967; J2919 ×4